=== PATIENT | male | born 1955 | race Caucasian/White ===

== ENCOUNTER 2020-01-12 11:55 | Inpatient (IN) | payer OTHER ==
[~2020-01-12] VITALS: Ht 170.2 cm; Wt 81.5 kg
[2020-01-12] VITALS (12 sets, daily range): BP systolic 116–161; BP diastolic 70–88
[~2020-01-12 11:55] MED LIST: ASPI-424 PO; ATORVASTATIN CA80 MG PO; CLOP75TA57 PO; FISH1CAP PO; LISI-334 PO; METO25TA4 PO; ONDA4TAB10 PO; OXYC1TAB15 PO; TAMS0.4C97 PO
[2020-01-12] MEDS ORDERED: HEPARIN for ARTERIAL LINE 0 ML ONE (12:25)
[2020-01-12] MEDS ORDERED: IODIXANOL 320 MG/ML 100 ML VIAL. ONE (12:26)
[2020-01-12] MEDS ORDERED: fentaNYL PF VIAL 100 MCG/2 ML VIAL ONE (12:26)
[2020-01-12] MEDS ORDERED: LIDOCAINE 1% Multi-Dose 20 ML VIAL. ONE (12:26)
[2020-01-12] MEDS ORDERED: MIDAZOLAM HCL/PF 2 MG/2 ML VIAL. ONE (12:26)
[2020-01-12] MEDS ORDERED: MIDAZOLAM 100mg/100ml NS BAG 100 ML IV PRN ×2 (12:45→13:00)
[2020-01-12] MEDS ORDERED: POLYVINYL ALCOHOL 1.4% OPHTH SOLUTION 15ML BOTTLE. OU PRN (12:45)
[2020-01-12] MEDS ORDERED: PROPOFOL 100 ML IV PRN (12:45)
[2020-01-12] MEDS ORDERED: VECURONIUM BOLUS 10 MG VIAL. IV PRN (12:45)
[2020-01-12] MEDS ORDERED: AMIODARONE 450 MG in IV DEXTROSE 5% 250 ML IV PRN (12:45)
[2020-01-12 12:53] LABS: BASO % 1 % (0-3); EOS # 0.2 x10^3/uL (0.0-0.7); EOS % 3 % (0-3); HEMATOCRIT 46.9 % (39.0-53.0); HEMOGLOBIN 15.1 g/dL (13.0-17.5); LYMPH # 4.7 x10^3/uL (1.0-4.8); LYMPH % 66 % (24-48); MEAN CORPUSCULAR HEMOGLOBIN 31 pg (25-35); MEAN CORPUSCULAR HGB CONC 32 g/dL (31-37); MEAN CORPUSCULAR VOLUME 97 fL (79-100); MONO # 0.3 x10^3/uL (0.0-1.1); MONO % 4 % (0-9); NEUT # 1.9 x10^3/uL (1.8-7.7); NEUT % 26 % (31-73); PLATELET COUNT 278 x10^3/uL (140-400); RED BLOOD COUNT 4.85 x10^6/uL (4.30-5.70); RED CELL DISTRIBUTION WIDTH 13.5 % (11.5-14.5); WHITE BLOOD COUNT 7.1 x10^3/uL (4.0-11.0)
--- NOTE | 2020-01-12 12:54 | RAD ---
EXAM: CHEST AP ONLY INDICATION: Cardiac arrest. Intubated.. TECHNIQUE: Single view COMPARISON: Abdomen CT without IV contrast of 08/21/2013. FINDINGS: The endotracheal tube terminates 1.0 cm above the paulino. An enteric tube passes below the diaphragms. The heart size is normal. The great vessels appear unremarkable. There is no hilar or mediastinal mass. The lungs are clear. There is no pleural effusion or pneumothorax. Bones show multilevel degenerative spondylosis. IMPRESSION: 1. Satisfactory endotracheal and patient with the ET tube terminating borderline low-lying, 1 cm above the paulino. Correlate for ET tube function and consider retracting if clinically appropriate. No acute complications otherwise noted. 2. Enteric tube passes below the diaphragms, tip projecting over the gastric fundus. Electronically signed by: Diana Deshpande MD (01/12/2020 12:51 PM) [id number]
[2020-01-12] MEDS ORDERED: fentaNYL PF VIAL 100 MCG/2 ML VIAL IV PRN (13:00)
[2020-01-12] MEDS ORDERED: busPIRone 10 MG TABLET. NG SCH (13:00)
[2020-01-12] MEDS ORDERED: MIDAZOLAM HCL/PF 2 MG/2 ML VIAL. IV ONE (13:00)
[2020-01-12] MEDS ORDERED: MAGNESIUM SULFATE 1GM 100 ML IV ONE (13:00)
[2020-01-12] MEDS ORDERED: fentaNYL PF VIAL 100 MCG/2 ML VIAL IV ONE (13:00)
[2020-01-12 13:04] LABS: PROTHROMBIN TIME PATIENT 14.6 SEC (11.7-14.0)
[2020-01-12 13:07] LABS: BASE EXCESS ABG -18 mmol/L (-3-3); HCO3 ABG 13 mmol/L (21-28); PCO2 ABG 50 mmHg (35-46); PO2 ABG 258 mmHg (65-108); SAT O2 ABG 99 % (92-99)
[2020-01-12] MEDS: AMIODARONE 450 MG in IV DEXTROSE 5% 250 ML IV PRN (13:07)
[2020-01-12 13:08] LABS: FIO2 ABG 100 VENT
[2020-01-12 13:13] LABS: MAGNESIUM 2.5 mg/dL (1.8-2.4)
[2020-01-12] MEDS: fentaNYL PF VIAL 100 MCG/2 ML VIAL IV PRN ×2 (13:27→14:43)
--- NOTE | 2020-01-12 13:27 | PDOC2 ---
CONSULT Date of Consult Date of Consult DATE: 01/12/20 TIME: 13:16 Reason for Consult Reason for Consult: Cardiac arrest Referring Physician Referring Physician: Dr. Aden Identification/Chief Complaint Chief Complaint Patient found down at his home Source Source: Caregiver, Chart review History of Present Illness Reason for Visit: The patient is a 64-year-old male who was found down at his home by his family. He may have been down up to 5 to 10 minutes until he was found. Paramedics were called. He was found to be in V. tach and CPR protocols were initiated. Approximate time of CPR was 15 minutes and at that time the patient resumed a more stable rhythm and was transported to the emergency room. In the emergency room the patient again had episodes of ventricular tachycardia and ventricular fibrillation. ACLS protocols were followed. Approximate coding time was 25 to 30 minutes. The patient then resumed a sinus rhythm. He was then treated with IV amiodarone. Blood pressure was severely decreased at approximately 62 mmHg systolic and he is being started on pressors. He was intubated in the emergency room and chest x-ray is pending. He has a history of stent placement approximately 14 years ago. He also has a history of hypertension and diabetes mellitus. Past Medical History Cardiovascular: CAD, HTN Endocrine: Diabetes Past Surgical History Past Surgical History: Other (Coronary stenting approximately 14 years ago. Orthopedic surgery for fractures.) Family History Family History: Hypertension Social History No Current Medications Current Medications Current Medications Heparin Sodium/ Sodium Chloride 0 ml @ As Directed STK-MED ONCE .ROUTE ; Start 01/12/20 at 12:25; Stop 01/12/20 at 12:25; Status DC Fentanyl Citrate (Fentanyl 2ml Vial) 100 mcg STK-MED ONCE .ROUTE ; Start 01/12/20 at 12:26; Stop 01/12/20 at 12:26; Status DC Midazolam HCl (Versed) 2 mg STK-MED ONCE .ROUTE ; Start 01/12/20 at 12:26; Stop 01/12/20 at 12:26; Status DC Iodixanol (Visipaque 320) 100 ml STK-MED ONCE .ROUTE ; Start 01/12/20 at 12:26; Stop 01/12/20 at 12:26; Status DC Lidocaine HCl (Lidocaine 1% 20ml Vial) 20 ml STK-MED ONCE .ROUTE ; Start 01/12/20 at 12:26; Stop 01/12/20 at 12:27; Status DC Amiodarone HCl 450 mg/Dextrose 259 ml @ 0 mls/hr CONT PRN IV SEE I/O RECORD; Start 01/12/20 at 12:45; Status UNV Amiodarone HCl 450 mg/Dextrose 259 ml @ 33 mls/hr CONT PRN IV SEE I/O RECORD Last administered on 01/12/20at 13:07; Start 01/12/20 at 12:45 Fentanyl Citrate (Fentanyl 2ml Vial) 100 mcg 1X ONCE IV Last administered on 01/12/20at 12:54; Start 01/12/20 at 13:00; Stop 01/12/20 at 13:01; Status DC Midazolam HCl (Versed) 2 mg 1X ONCE IV Last administered on 01/12/20at 12:54; Start 01/12/20 at 13:00; Stop 01/12/20 at 13:01; Status DC Magnesium Sulfate/ Dextrose 100 ml @ 100 mls/hr 1X ONCE IV ; Start 01/12/20 at 13:00; Stop 01/12/20 at 13:59 Buspirone HCl (Buspar) 30 mg Q8H NG ; Start 01/12/20 at 13:00; Stop 01/14/20 at 05:01 Acetaminophen (Tylenol) 650 mg Q4H NG ; Start 01/12/20 at 13:00 Acetaminophen (Tylenol Supp) 650 mg PRN Q4HRS PRN CO IF NO NG DOSE GIVEN; Start 01/12/20 at 12:45 Artificial Tears (Artificial Tears) 1 drop Q6HRS OU ; Start 01/12/20 at 18:00 Artificial Tears (Artificial Tears) 1 drop PRN Q15MIN PRN OU DRY EYE; Start 01/12/20 at 12:45 Heparin Sodium (Porcine) (Heparin Sodium) 5,000 unit BID SQ ; Start 01/12/20 at 21:00 Pantoprazole Sodium (PROTONIX VIAL for IV PUSH) 40 mg DAILY IVP ; Start 01/13/20 at 09:00 Fentanyl Citrate 30 ml @ 0 mls/hr CONT PRN IV PER PROTOCOL.; Start 01/12/20 at 12:45 Propofol 100 ml @ 0 mls/hr CONT PRN IV PER PROTOCOL.; Start 01/12/20 at 12:45 Midazolam HCl 100 ml @ 0 mls/hr CONT PRN IV PER PROTOCOL.; Start 01/12/20 at 12:45 Vecuronium [employer] (Norcuron Bolus) 10 mg PRN Q1HR PRN IV SHIVERING; Start 01/12/20 at 12:45 Fentanyl Citrate 30 ml @ 0 mls/hr CONT PRN IV SEE PROTOCOL; Start 01/12/20 at 13:00; Status UNV Fentanyl Citrate (Fentanyl 2ml Vial) 25 mcg PRN Q1HR PRN IV SEE COMMENTS; Start 01/12/20 at 13:00 Fentanyl Citrate (Fentanyl 2ml Vial) 50 mcg PRN Q1HR PRN IV SEE COMMENTS; Start 01/12/20 at 13:00 Chlorhexidine Gluconate (Peridex) 15 ml BID MM ; Start 01/12/20 at 21:00 Midazolam HCl 100 ml @ 0 mls/hr CONT PRN IV SEE PROTOCOL; Start 01/12/20 at 13:00; Status UNV Active Scripts Active Flomax (Tamsulosin Hcl) 0.4 Mg Cap.er.24h 0.4 Mg PO DAILY Zofran Odt (Ondansetron) 4 Mg Tab.rapdis 4 Mg PO Q6HRS PRN Percocet 5-325 Mg Tablet (Oxycodone Hcl/Acetaminophen) 1 Each Tablet 1 Each PO Q4HRS PRN Reported Adult Low Dose Aspirin Ec (Aspirin) 81 Mg Tablet.dr 81 Mg PO DAILY Metoprolol Tartrate 25 Mg Tablet 25 Mg PO BID Lisinopril 20 Mg Tablet 20 Mg PO DAILY Plavix (Clopidogrel Bisulfate) 75 Mg Tablet 75 Mg PO DAILY Atorvastatin Calcium 80 Mg Tablet 80 Mg PO DAILY Fish Oil 1,200 Mg Fish Oil (Fish Oil/Dha/Epa) 1 Each Capsule 2,400 Mg PO DAILY Allergies Allergies: Coded Allergies: Penicillins (Verified Allergy, Intermediate, Hives, 01/12/20) ROS Review of System Not obtainable. Physical Exam General: Other (Intubated and on a ventilator.) HEENT: Other (Pupils are fixed but not dilated) Lungs: Other (Mildly decreased breath sounds) Heart: Regular rate Abdomen: Normal bowel sounds Vitals VITALS Vital Signs Date Time Temp Pulse Resp B/P (MAP) Pulse Ox O2 Delivery O2 Flow Rate FiO2 01/12/20 12:55 100 Ventilator Labs Labs Laboratory Tests Test 01/12/20 12:00 01/12/20 12:45 White Blood Count 7.1 x10^3/uL (4.0-11.0) Red Blood Count 4.85 x10^6/uL (4.30-5.70) Hemoglobin 15.1 g/dL (13.0-17.5) Hematocrit 46.9 % (39.0-53.0) Mean Corpuscular Volume 97 fL (79-100) Mean Corpuscular Hemoglobin 31 pg (25-35) Mean Corpuscular Hemoglobin Concent 32 g/dL (31-37) Red Cell Distribution Width 13.5 % (11.5-14.5) Platelet Count 278 x10^3/uL (140-400) Neutrophils (%) (Auto) 26 % (31-73) Lymphocytes (%) (Auto) 66 % (24-48) Monocytes (%) (Auto) 4 % (0-9) Eosinophils (%) (Auto) 3 % (0-3) Basophils (%) (Auto) 1 % (0-3) Neutrophils # (Auto) 1.9 x10^3/uL (1.8-7.7) Lymphocytes # (Auto) 4.7 x10^3/uL (1.0-4.8) Monocytes # (Auto) 0.3 x10^3/uL (0.0-1.1) Eosinophils # (Auto) 0.2 x10^3/uL (0.0-0.7) Basophils # (Auto) 0.0 x10^3/uL (0.0-0.2) Prothrombin Time 14.6 SEC (11.7-14.0) Prothromb Time International Ratio 1.2 (0.8-1.1) Activated Partial Thromboplast Time 33 SEC (24-38) O2 Saturation 99 % (92-99) Arterial Blood pH 7.03 (7.35-7.45) Arterial Blood pCO2 at Patient Temp 50 mmHg (35-46) Arterial Blood pO2 at Patient Temp 258 mmHg (65-108) Arterial Blood HCO3 13 mmol/L (21-28) Arterial Blood Base Excess -18 mmol/L (-3-3) FiO2 100 vent Laboratory Tests Test 01/12/20 12:00 01/12/20 12:45 White Blood Count 7.1 x10^3/uL (4.0-11.0) Red Blood Count 4.85 x10^6/uL (4.30-5.70) Hemoglobin 15.1 g/dL (13.0-17.5) Hematocrit 46.9 % (39.0-53.0) Mean Corpuscular Volume 97 fL (79-100) Mean Corpuscular Hemoglobin 31 pg (25-35) Mean Corpuscular Hemoglobin Concent 32 g/dL (31-37) Red Cell Distribution Width 13.5 % (11.5-14.5) Platelet Count 278 x10^3/uL (140-400) Neutrophils (%) (Auto) 26 % (31-73) Lymphocytes (%) (Auto) 66 % (24-48) Monocytes (%) (Auto) 4 % (0-9) Eosinophils (%) (Auto) 3 % (0-3) Basophils (%) (Auto) 1 % (0-3) Neutrophils # (Auto) 1.9 x10^3/uL (1.8-7.7) Lymphocytes # (Auto) 4.7 x10^3/uL (1.0-4.8) Monocytes # (Auto) 0.3 x10^3/uL (0.0-1.1) Eosinophils # (Auto) 0.2 x10^3/uL (0.0-0.7) Basophils # (Auto) 0.0 x10^3/uL (0.0-0.2) Prothrombin Time 14.6 SEC (11.7-14.0) Prothromb Time International Ratio 1.2 (0.8-1.1) Activated Partial Thromboplast Time 33 SEC (24-38) O2 Saturation 99 % (92-99) Arterial Blood pH 7.03 (7.35-7.45) Arterial Blood pCO2 at Patient Temp 50 mmHg (35-46) Arterial Blood pO2 at Patient Temp 258 mmHg (65-108) Arterial Blood HCO3 13 mmol/L (21-28) Arterial Blood Base Excess -18 mmol/L (-3-3) FiO2 100 vent Images Images Chest x-ray and CT head scan pending Assessment/Plan Assessment/Plan 1. On out of hospital cardiac arrest. Prolonged CPR times as outlined above. Patient has now improved on IV amiodarone. Blood pressure still severely decreased and will start pressors for the patient. History of coronary stenting approximately 14 years ago. However the patient by family report has been feeling well over the past several months. At this time will continue on IV amiodarone, dopamine and other pressors as needed, ventilator support and start hypothermia protocol. CT head scan is pending and will consider heparin post CT head scan secondary the patient's reported fall. The patient is a poor candidate at this time for interventional treatment secondary to his unstable rhythm and severe hypotension. I reviewed the patient's presentation and treatment as well as prognosis with the patient's and family. 2. History of distant stent placement 14 years ago. Patient has been followed by Dr. Pierre at . He reportedly has been feeling well. 3. Diabetes mellitus. As per the primary service. 4. Respiratory failure. Patient was intubated and placed on a ventilator in the emergency room. Pulmonary consult is pending. Thank you for allowing us to participate in the care of your patient. CHRIS MURRELL MD January 12, 2020 13:27
[2020-01-12 13:33] LABS: ALBUMIN 3.3 g/dL (3.4-5.0); ALBUMIN/GLOBULIN RATIO 1.1 (1.0-1.7); CALCIUM 8.9 mg/dL (8.5-10.1); CREATININE 1.4 mg/dL (0.7-1.3); GFR 51.2; TOTAL BILIRUBIN 0.5 mg/dL (0.2-1.0); TOTAL PROTEIN 6.3 g/dL (6.4-8.2)
[2020-01-12 13:49] LABS: POTASSIUM 2.7 mmol/L (3.5-5.1)
[2020-01-12] MEDS ORDERED: POTASSIUM CHLORIDE 20MEQ 100 ML IV ONE (14:00)
--- NOTE | 2020-01-12 14:27 | RAD ---
CT HEAD WO CONTRAST Clinical indications: Cardiac arrest. Status change. COMPARISON: None available. Technique: Noncontrast axial cross sectional scanning of the head was performed. PQRS compliance Statement One or more of the following individualized dose reduction techniques were utilized for this study: 1. Automated exposure control 2. Adjustment of the mA and/or kV according to patient size 3. Use of iterative reconstruction technique Findings: No acute intracranial hemorrhage or midline shift or mass-effect or hydrocephalus or extra-axial fluid collection is seen. There is ill-defined hypodensity involving the upper convexity aspect of the posterior right parietal lobe. This could be ischemic in nature. No skull fracture or pneumocephalus is seen. No opacification of the mastoid sinuses or the middle ear cavities or the paranasal sinuses is seen. The maxillary sinuses are not completely seen in this study. Calcifications of the retina are seen bilaterally. IMPRESSION: No acute intracranial hemorrhage is seen. Ill-defined hypodensity involving the upper convexity aspect of the posterior right parietal lobe which may be ischemic in nature. This could be due to acute or subacute infarct. FOR INTERNAL CODING PURPOSES Critical result: Findings discussed with Aric, the ER nurse at 01/12/2020 2:19 PM. He read back to me the report and will give it to the ER physician who was not readily available at the time. RESULT CODE: (C) Electronically signed by: Ricco Fierro MD (01/12/2020 2:24 PM) [id number]
[2020-01-12 15:09] LABS: BASE EXCESS ABG -6 mmol/L (-3-3); HCO3 ABG 19 mmol/L (21-28); PCO2 ABG 37 mmHg (35-46); PO2 ABG 105 mmHg (65-108); SAT O2 ABG 97 % (92-99)
[2020-01-12 15:11] LABS: FIO2 ABG 60%
[2020-01-12] MEDS: ACETAMINOPHEN 650 MG/20.3 ML SOLUTION. NG SCH ×3 (15:43→19:54)
--- NOTE | 2020-01-12 16:00 | HP ---
ADMIT DATE: 01/12/2020 CHIEF COMPLAINT: Found down, cardiac arrest. HISTORY OF PRESENT ILLNESS: The patient is a pleasant 64-year-old male who has known coronary artery disease. He has 2 previous stents. His found him down outside. She thinks he was down for about 5-10 minutes and the ambulance was called, they arrived and intubated him and did CPR for about 15 minutes. He was brought to the Emergency Room, he is now on amiodarone drip and dopamine. His troponin is surprisingly normal at 0.017. I discussed the case with ER physician. We are going to admit the patient to the ICU with consultation to Pulmonary and Cardiology. PAST MEDICAL HISTORY: CAD with previous stents x 2, BPH, anticoagulation with Plavix, hyperlipidemia, diabetes, hypertension, chronic pain, arthritis. ALLERGIES: PENICILLIN. FAMILY HISTORY: Coronary artery disease. 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 He is . He does not drink, smoke or take drugs. MEDICATIONS: Reviewed. He is on Flomax, Plavix, aspirin, metoprolol, atorvastatin, lisinopril, oxycodone, ondansetron and fish oil. REVIEW OF SYSTEMS: Unable to obtain. The patient is intubated. PHYSICAL EXAMINATION: VITALS: Within normal limits and are stable. GENERAL: No apparent distress. Alert and oriented. HEENT: He has an ET tube in place. His pupils are actually pinpoint and he has not received any atropine so that is a good sign. MUSCULOSKELETAL: Well developed, well nourished, good range of motion ENDOCRINE: No thyromegaly was palpated LYMPHATICS: No cervical chain or axillary nodes were noted HEMATOPOIETIC: No bruising NECK: He has slight JVD. LUNGS: Clear to auscultation in all lung smith without rhonchi or wheezing. HEART: RRR, S1, S2 present. Peripheral pulses intact, no obvious murmurs were noted. ABDOMEN: Soft, nontender. Positive bowel sounds no organomegaly, normal bowel sounds. EXTREMITIES: Without any cyanosis, clubbing, or edema. Pedal pulses intact, Homans sign is negative. NEUROLOGIC: He is sedated, but he has some oral twitching. PSYCHIATRIC: Unobtainable. SKIN: No ulcerations or rashes, good skin turgor, no jaundice. VASCULAR: Good capillary refill, neurovascular bundle appears to be intact. LABORATORY DATA: Troponin is 0. Potassium is 2.7. Hematology is normal. INR is 1.2. CT of the head, no acute changes, although he has some chronic ischemic changes, perhaps an old infarct. Chest x-ray shows satisfactory placement of the ET tube, no acute complications were noted. ASSESSMENT AND PLAN: Cardiac arrest with resuscitation. The patient has been admitted to the ICU. We have him on dopamine and amiodarone drips, we will hope to wean the dopamine off. Serial enzymes, serial EKGs, echocardiogram, consult Cardiology, consult Pulmonary. We will try to resume his home meds via OG tube if necessary. Replace his potassium. DVT prophylaxis. Full code. Prognosis is extremely guarded at best. This is a critically ill patient. I did discuss the case with the nurses and the ER physician and the family. TOTAL TIME: 31 minutes. LICO HAWLEY DO DR: ALICIA/filemon JOB#: [id number] / [id number]
--- NOTE | 2020-01-12 16:17 | RAD ---
AP portable chest 01/12/2020. Reason for exam: Central line placement. Comparison is made with a study done earlier in the day. An ETT and NGT remain in place. A right subclavian central line is now seen. Its tip can be followed to mediastinum and probably lies near the cavoatrial junction. There is no apparent pneumothorax. No new infiltrate or effusion is seen. Heart size is normal. IMPRESSION: Placement of subclavian line without apparent complication. Electronically signed by: Josr Bolivar Jr., MD (01/12/2020 4:14 PM) [id number]
--- NOTE | 2020-01-12 16:46 | CONS ---
DATE OF CONSULTATION: PULMONARY CONSULTATION ATTENDING PHYSICIAN: Dr. Chan. REASON FOR CONSULTATION: Cardiac arrest. HISTORY OF PRESENT ILLNESS: The patient is a 64-year-old male who has past medical history of coronary artery disease and stenting about 14 years ago. He sees Dr. Pierre. The patient was found down at his home by his family. EMS was called. They arrived within 4-5 minutes. He was found to be in V-tach. CPR was initiated. He had ACLS protocol followed for about 20 minutes. The patient had a stable rhythm by EMS. He was transported into the Emergency Room and again had about 20-25 minutes of CPR intermittently with shock and drugs. The patient had V-tach and V-fib. ACLS protocol was followed. The patient had return of spontaneous circulation. He was treated with IV amiodarone. He was requiring low-dose Levophed. He was seen by Cardiology, who did not think that he needed to go to [facility] [employer]. Currently, he is intubated and sedated. His ABGs showed a pH of 7.03, pCO2 of 50 and a pO2 of 258 with bicarbonate of 13. He received 2 amps of bicarbonate. The rate has been increase, is currently on AC at 26, tidal volume 500 and his oxygenation down to 60% and 8 of PEEP. I have discussed with the patient's at the bedside. No prior history of DVT. He smoked for about 30 years before quitting. PAST MEDICAL HISTORY: History of hypertension, CAD and likely COPD, and diabetes. PAST SURGICAL HISTORY: Previous stent placement. FAMILY HISTORY: Hypertension. SOCIAL HISTORY: Smoked for about 30 years before quitting. FAMILY HISTORY: Noncontributory to lungs. MEDICATIONS: Reviewed as listed in the MRAD. REVIEW OF SYSTEMS: Unable to obtain from the patient. PHYSICAL EXAMINATION: VITAL SIGNS: Reviewed. Pulse ox 100%. HEENT: Pupils sluggish to react. NECK: Supple. LUNGS: With few rhonchi anteriorly. CARDIOVASCULAR: Regular ____. ABDOMEN: Soft, obese. EXTREMITIES: With bilateral trace pitting edema. LABORATORY DATA: Reviewed. ABGs as discussed in my history of present illness. Potassium 2.7. BUN 18, creatinine 1.4. AST and ALT elevated. White cell count 7.1, hemoglobin 15.1, platelets 278,000. IMPRESSION: 1. Acute hypoxic and hypercapnic respiratory failure secondary to cardiac arrest. 2. Cardiac arrest with V-fib and V-tach. Status post CPR and ACLS protocol for approximately 50 minutes. 3. History of underlying coronary artery disease and suspected non-ST myocardial infarction. 4. Abnormal chest x-ray with faint basal atelectasis or infiltrate. The ET tube at 1 cm above the paulino. 5. Cannot exclude the possibility of anoxic encephalopathy due to prolonged CPR. 6. Coffee-ground OG aspirate. Could be related to OG trauma. 7. Likely underlying chronic obstructive pulmonary disease. 8. Abnormal ct head with suspected small ischemic infarct 9. Shock Liver RECOMMENDATIONS: 1. Continue with present assist control mode and make changes based on ABGs. 2. Follow cardiology recommendations. Need for any cardiac intervention per cardiology. 3. The patient has abnormal CT head with ischemic infarct. Not a candidate for hypothermic protocol. 4. Monitor renal output. 5. The patient has shock liver. Need to monitor LFTs. 6. Once the patient is stabilized then we will wean off sedation and assess for anoxic brain injury. 7. Anticoagulation per Cardiology. 8. Continue amiodarone per Cardiology. 9. Discussed with family including and discussed with ER physician. 10. Neurology consult Critical care time 40 minutes. ALEXI LUNDBERG MD DR: KRISSY/filemon JOB#: [id number] / [id number]
--- NOTE | 2020-01-12 16:53 | PHYS DOC ---
Past Medical History Past Medical History: Diabetes-Type II, Hypertension, AR, Other Additional Past Medical Histor: GASTRIC ULCER Past Surgical History: Appendectomy, Other Additional Past Surgical Histo: cardiac cath, CARDIAC STENT Smoking Status: Former Smoker Alcohol Use: Occasionally Drug Use: None General Adult EDM: Chief Complaint: CPR/FULL ARREST HPI: HPI: Patient is a 64-year-old male with known coronary disease who is out enjoying the weather sitting up on a proximally a 3 foot ledge when he clutched his chest and fell over. This happened suddenly and he was immediately unresponsive. No CPR was done but EMS was called and arrived approximately 5 minutes later. EMS reports that they gave multiple rounds of epinephrine and shocked him multiple times. They state their rhythm was asystole and then ventricular fibrillation after 20 minutes of ACLS in the field they did have a return of spontaneous circulation and brought him here emergency traffic. Obviously, patient is unable to provide any history. However, the family states that he has been recently given a clean bill of health by his groundskeeper and had no complaints recently. [] Review of Systems: Review of Systems: Review of systems is unobtainable secondary to critical medical illness Heart Score: Risk Factors: Risk Factors: DM, Current or recent (<one month) smoker, HTN, HLP, family history of CAD, obesity. Risk Scores: Score 0 - 3: 2.5% MACE over next 6 weeks - Discharge Home Score 4 - 6: 20.3% MACE over next 6 weeks - Admit for Clinical Observation Score 7 - 10: 72.7% MACE over next 6 weeks - Early Invasive Strategies Current Medications: Current Medications Medications (Trade) Dose Ordered Sig/[facility] Start Time Stop Time Status Last Admin Dose Admin Acetaminophen (Tylenol Supp) 650 mg PRN Q4HRS PRN 01/12/20 12:45 Acetaminophen (Tylenol) 650 mg Q4H 01/12/20 13:00 Amiodarone HCl 450 mg/Dextrose 259 ml @ 33 mls/hr CONT PRN 01/12/20 12:45 01/12/20 13:07 33 MLS/HR Artificial Tears (Artificial Tears) 1 drop PRN Q15MIN PRN 01/12/20 12:45 Buspirone HCl (Buspar) 30 mg Q8H 01/12/20 13:00 01/14/20 05:01 Fentanyl Citrate (Fentanyl 2ml Vial) 50 mcg PRN Q1HR PRN 01/12/20 13:00 01/12/20 14:43 50 MCG Heparin Sodium/ Sodium Chloride 0 ml @ As Directed STK-MED ONCE 01/12/20 12:25 01/12/20 12:25 DC Iodixanol (Visipaque 320) 100 ml STK-MED ONCE 01/12/20 12:26 01/12/20 12:26 DC Lidocaine HCl (Lidocaine 1% 20ml Vial) 20 ml STK-MED ONCE 01/12/20 12:26 01/12/20 12:27 DC Magnesium Sulfate/ Dextrose 100 ml @ 100 mls/hr 1X ONCE 01/12/20 13:00 01/12/20 13:59 DC Midazolam HCl 100 ml @ 0 mls/hr CONT PRN 01/12/20 13:00 UNV Midazolam HCl (Versed) 2 mg 1X ONCE 01/12/20 13:00 01/12/20 13:01 DC 01/12/20 12:54 2 MG Potassium Chloride/Water 100 ml @ 50 mls/hr 1X ONCE 01/12/20 14:00 01/12/20 15:59 DC 01/12/20 14:00 50 MLS/HR Propofol 100 ml @ 0 mls/hr CONT PRN 01/12/20 12:45 Vecuronium Woodson (Norcuron Bolus) 10 mg PRN Q1HR PRN 01/12/20 12:45 Allergies: Allergies: Allergies Coded Allergies Type Severity Reaction Last Updated Verified Penicillins Allergy Intermediate Hives 01/12/20 Yes Physical Exam: PE: Constitutional: Well developed, well nourished, patient is acutely ill [] HENT: Normocephalic, atraumatic, bilateral external ears normal, oropharynx moist, no oral exudates, nose normal. He has a Jean Claude airway in place [] Eyes: Pupils fixed and dilated [] Neck: Normal range of motion, no tenderness, supple, no stridor. [] Cardiovascular:Heart rate regular rhythm, no murmur faint peripheral pulses palpated [] Lungs & Thorax: Bilateral breath sounds clear to auscultation [] Abdomen: Bowel sounds normal, soft, no tenderness, no masses, no pulsatile masses. [] Skin: Warm, dry, no erythema, no rash. [] Back: No tenderness, no CVA tenderness. [] Extremities: No tenderness, no cyanosis, no clubbing, ROM intact, no edema. [] Neurologic: Patient is obtunded. [] Psychologic: Unable to assess [] Current Patient Data: Labs: Laboratory Tests Test 01/12/20 12:00 01/12/20 12:45 01/12/20 15:00 White Blood Count 7.1 x10^3/uL (4.0-11.0) Red Blood Count 4.85 x10^6/uL (4.30-5.70) Hemoglobin 15.1 g/dL (13.0-17.5) Hematocrit 46.9 % (39.0-53.0) Mean Corpuscular Volume 97 fL (79-100) Mean Corpuscular Hemoglobin 31 pg (25-35) Mean Corpuscular Hemoglobin Concent 32 g/dL (31-37) Red Cell Distribution Width 13.5 % (11.5-14.5) Platelet Count 278 x10^3/uL (140-400) Neutrophils (%) (Auto) 26 % (31-73) L Lymphocytes (%) (Auto) 66 % (24-48) H Monocytes (%) (Auto) 4 % (0-9) Eosinophils (%) (Auto) 3 % (0-3) Basophils (%) (Auto) 1 % (0-3) Neutrophils # (Auto) 1.9 x10^3/uL (1.8-7.7) Lymphocytes # (Auto) 4.7 x10^3/uL (1.0-4.8) Monocytes # (Auto) 0.3 x10^3/uL (0.0-1.1) Eosinophils # (Auto) 0.2 x10^3/uL (0.0-0.7) Basophils # (Auto) 0.0 x10^3/uL (0.0-0.2) Prothrombin Time 14.6 SEC (11.7-14.0) H Prothrombin Time INR 1.2 (0.8-1.1) H Activated Partial Thromboplast Time 33 SEC (24-38) Sodium Level 142 mmol/L (136-145) Potassium Level 2.7 mmol/L (3.5-5.1) *L Chloride Level 102 mmol/L (98-107) Carbon Dioxide Level 19 mmol/L (21-32) L Anion Gap 21 (6-14) H Blood Urea Nitrogen 18 mg/dL (8-26) Creatinine 1.4 mg/dL (0.7-1.3) H Estimated GFR (Cockcroft-Gault) 51.2 BUN/Creatinine Ratio 13 (6-20) Glucose Level 290 mg/dL (70-99) H Calcium Level 8.9 mg/dL (8.5-10.1) Phosphorus Level 7.0 mg/dL (2.6-4.7) H Magnesium Level 2.5 mg/dL (1.8-2.4) H Total Bilirubin 0.5 mg/dL (0.2-1.0) Aspartate Amino Transferase (AST) 125 U/L (15-37) H Alanine Aminotransferase (ALT) 187 U/L (16-63) H Alkaline Phosphatase 70 U/L (46-116) Creatine Kinase 152 U/L (39-308) Troponin I Quantitative < 0.017 ng/mL (0.000-0.055) WX-Xzq-B-Type Natriuretic Peptide 159 pg/mL (0-124) H Total Protein 6.3 g/dL (6.4-8.2) L Albumin 3.3 g/dL (3.4-5.0) L Albumin/Globulin Ratio 1.1 (1.0-1.7) Triglycerides Level 83 mg/dL (0-150) Ethyl Alcohol Level < 10 mg/dL (0-10) O2 Saturation 99 % (92-99) 97 % (92-99) Arterial Blood pH 7.03 (7.35-7.45) *L 7.34 (7.35-7.45) L Arterial Blood pCO2 at Patient Temp 50 mmHg (35-46) H 37 mmHg (35-46) Arterial Blood pO2 at Patient Temp 258 mmHg (65-108) H 105 mmHg (65-108) Arterial Blood HCO3 13 mmol/L (21-28) L 19 mmol/L (21-28) L Arterial Blood Base Excess -18 mmol/L (-3-3) L -6 mmol/L (-3-3) L FiO2 100 vent 60% Laboratory Tests 01/12/20 12:00 Laboratory Tests 01/12/20 12:00 Vital Signs: Vital Signs Date Time Temp Pulse Resp B/P (MAP) Pulse Ox O2 Delivery O2 Flow Rate FiO2 01/12/20 16:15 76 26 125/81 (96) 100 Ventilator 01/12/20 11:55 97.2 97.2 EKG: EKG: [EKG sinus bradycardia no obvious ischemic ST-T changes] Radiology/Procedures: Radiology/Procedures: []REASON: cardiac arrest PROCEDURE: CT HEAD WO CONTRAST CT HEAD WO CONTRAST Clinical indications: Cardiac arrest. Status change. COMPARISON: None available. Technique: Noncontrast axial cross sectional scanning of the head was performed. PQRS compliance Statement One or more of the following individualized dose reduction techniques were utilized for this study: 1. Automated exposure control 2. Adjustment of the mA and/or kV according to patient size 3. Use of iterative reconstruction technique Findings: No acute intracranial hemorrhage or midline shift or mass-effect or hydrocephalus or extra-axial fluid collection is seen. There is ill-defined hypodensity involving the upper convexity aspect of the posterior right parietal lobe. This could be ischemic in nature. No skull fracture or pneumocephalus is seen. No opacification of the mastoid sinuses or the middle ear cavities or the paranasal sinuses is seen. The maxillary sinuses are not completely seen in this study. Calcifications of the retina are seen bilaterally. IMPRESSION: No acute intracranial hemorrhage is seen. Ill-defined hypodensity involving the upper convexity aspect of the posterior right parietal lobe which may be ischemic in nature. This could be due to acute or subacute infarct. Impression: PROCEDURE: PORTABLE CHEST 1V AP portable chest 01/12/2020. Reason for exam: Central line placement. Comparison is made with a study done earlier in the day. An ETT and NGT remain in place. A right subclavian central line is now seen. Its tip can be followed to mediastinum and probably lies near the cavoatrial junction. There is no apparent pneumothorax. No new infiltrate or effusion is seen. Heart size is normal. IMPRESSION: Placement of subclavian line without apparent complication. PROCEDURE: CHEST AP ONLY EXAM: CHEST AP ONLY INDICATION: Cardiac arrest. Intubated.. TECHNIQUE: Single view COMPARISON: Abdomen CT without IV contrast of 08/21/2013. FINDINGS: The endotracheal tube terminates 1.0 cm above the paulino. An enteric tube passes below the diaphragms. The heart size is normal. The great vessels appear unremarkable. There is no hilar or mediastinal mass. The lungs are clear. There is no pleural effusion or pneumothorax. Bones show multilevel degenerative spondylosis. IMPRESSION: 1. Satisfactory endotracheal and patient with the ET tube terminating borderline low-lying, 1 cm above the paulino. Correlate for ET tube function and consider retracting if clinically appropriate. No acute complications otherwise noted. 2. Enteric tube passes below the diaphragms, tip projecting over the gastric fundus. Course & Med Decision Making: Course & Med Decision Making Pertinent Labs and Imaging studies reviewed. (See chart for details) [Please see the nurses CODE BLUE sheet for specifics and exact timing. ED course: Shortly after arrival the patient lost a pulse and ACLS protocol was again started with chest compressions and a couple of rounds of epinephrine. The patient then went into what appeared to be a fine ventricular fibrillation he was shocked and a total of 300 mg of amiodarone were given. He did have a spontaneous return of circulation after the shock and amiodarone this lasted for a brief time and he lost his pulse again. He was given more epinephrine and shocked again at 360 J with return of spontaneous circulation. This time we began a amiodarone drip and dopamine. Cardiology was consulted and Dr. Diaz was in the room right away. I did have a conversation with the family letting them know that the patient was critically ill.] CRITICAL CARE: Time spent was 35 minutes. This includes medical management, evaluation, reevaluation, discussion with consultants and family. Critical Care does NOT include time spent on separately billed procedures. Dragon Disclaimer: Dragon Disclaimer: This electronic medical record was generated, in whole or in part, using a voice recognition dictation system. Departure Departure Impression: Primary Impression: Cardiac arrest Disposition: 09 ADMITTED INPATIENT Admitting Physician: FLOYD Condition: CRITICAL Referrals: MERISSA NEAL MD (PCP) Central Line Placement Proc Central Line Indication: Vascular access Consent: The patient provided consent for this procedure. Procedure: The patient was positioned appropriately and the skin over the [right subclavian vein] was prepped and draped in a sterile fashion. Local anesthesia was used. Ultrasound guidance was not utilized. A large bore needle was used to identify the vein. A guide wire was then inserted into the vein through the needle. A triple lumen catheter was then inserted into the vessel over the guide wire using the Seldinger technique. All ports showed good, free flowing blood return and were flushed with saline solution. The catheter was then securely fastened to the skin with sutures and covered with a sterile dressing. A post procedure X-ray was ordered. The patient tolerated the procedure well. Complications: none. [] Intubation Procedure Intubation Procedure Intub Indication: Respiratory failure Consent: Unable to give consent due to emergent nature. Medications Used: see nursing note Procedure: The patient was placed in the appropriate position. Intubation was performed for Brendon [7.5] endotracheal tube. [ET SECURE]. Initial confirmation of placement included bilateral breath sounds, tube fogging, adequate chest rise, adequate pulse oximetry reading. A chest x-ray to verify correct placement of the tube showed appropriate tube position. The patient tolerated the procedure well. Complications: none. KHURRAM MOSER DO January 12, 2020 16:53
[2020-01-12] MEDS: POLYVINYL ALCOHOL 1.4% OPHTH SOLUTION 15ML BOTTLE. OU SCH ×2 (18:00→19:54)
[2020-01-12] MEDS: IV NORMAL SALINE 1000ML BAG 1,000 ML IV SCH (18:23)
[2020-01-12] MEDS: POTASSIUM CHLORIDE 20MEQ 100 ML IV SCH ×2 (18:24→20:26)
--- NOTE | 2020-01-12 19:05 | NUR ---
Patient arrived on unit at 1600 accompanied by ED RNs and RTs. VSS. Neurologically, patient has a cough reflex, pupils are a 1 and not responding, no response to pain, and not overbreathing the ventilator. However when stimulated, patient has full body tremor activity and patient's jaw starts quivering and eyes open, but nothing is purposeful. Routine consult paged to Dr. Estrella. VAN was notified, referral number [id number], will follow case. Patient came in with knee brace that was taken by Chikis, patient's . Chikis was able to come visit patient and answer admission questions, was given passcode and notified of visiting restrictions.
[2020-01-12] MEDS ORDERED: HEPARIN for SUB-Q USE 5,000 UNIT/ML VIAL. SQ SCH (21:00)
[2020-01-12] MEDS ORDERED: CHLORHEXIDINE 0.12% 15 ML MOUTHWASH. MM SCH (21:00)
[2020-01-12] MEDS: FAMOTIDINE 20 MG/2 ML VIAL IVP SCH (21:17)
[2020-01-13] VITALS (24 sets, daily range): BP systolic 144–186; BP diastolic 68–88
[2020-01-13] MEDS: AMIODARONE 450 MG in IV DEXTROSE 5% 250 ML IV PRN ×2 (03:07→16:01)
[2020-01-13] MEDS: fentaNYL PF VIAL 100 MCG/2 ML VIAL IV PRN ×2 (03:07→06:06)
[2020-01-13] MEDS: ACETAMINOPHEN 650 MG/20.3 ML SOLUTION. PEG PRN (04:16)
[2020-01-13] MEDS: IV NORMAL SALINE 1000ML BAG 1,000 ML IV SCH ×2 (04:17→15:28)
[2020-01-13] MEDS ORDERED: MV-M1TAB7 PO (06:28)
[2020-01-13] MEDS ORDERED: METF10007 PO (06:28)
[2020-01-13 06:30] LABS: CALCIUM 8.3 mg/dL (8.5-10.1); CREATININE 1.3 mg/dL (0.7-1.3); GFR 55.8; MAGNESIUM 1.5 mg/dL (1.8-2.4); POTASSIUM 3.7 mmol/L (3.5-5.1)
[2020-01-13 06:45] LABS: BASO % 0 % (0-3); EOS % 0 % (0-3); HEMATOCRIT 47.6 % (39.0-53.0); HEMOGLOBIN 15.9 g/dL (13.0-17.5); LYMPH # 1.4 x10^3/uL (1.0-4.8); LYMPH % 7 % (24-48); MEAN CORPUSCULAR HEMOGLOBIN 31 pg (25-35); MEAN CORPUSCULAR HGB CONC 33 g/dL (31-37); MONO # 1.4 x10^3/uL (0.0-1.1); MONO % 6 % (0-9); NEUT % 87 % (31-73); PLATELET COUNT 325 x10^3/uL (140-400); WHITE BLOOD COUNT 21.9 x10^3/uL (4.0-11.0)
--- NOTE | 2020-01-13 07:23 | PDOC ---
PULMONARY PROGRESS NOTES Subjective Remains on vent at 60% PEEP of 5. not on sedation nursing reports no overnight concerns not responsive off sedation Vitals Vital Signs Date Time Temp Pulse Resp B/P (MAP) Pulse Ox O2 Delivery O2 Flow Rate FiO2 01/13/20 06:44 26 100 Ventilator 01/13/20 06:00 101.7 105 166/72 (103) 101.7 Comments intubated AC mode Lungs: Clear Cardiovascular: S1 Abdomen: Soft Extremities: Other (trace edema) Impression Upward Gaze, doesn't follow commands/ not on sedation Labs Laboratory Tests Test 01/12/20 12:00 01/12/20 12:45 01/12/20 15:00 01/12/20 16:55 White Blood Count 7.1 x10^3/uL (4.0-11.0) Red Blood Count 4.85 x10^6/uL (4.30-5.70) Hemoglobin 15.1 g/dL (13.0-17.5) Hematocrit 46.9 % (39.0-53.0) Mean Corpuscular Volume 97 fL (79-100) Mean Corpuscular Hemoglobin 31 pg (25-35) Mean Corpuscular Hemoglobin Concent 32 g/dL (31-37) Red Cell Distribution Width 13.5 % (11.5-14.5) Platelet Count 278 x10^3/uL (140-400) Neutrophils (%) (Auto) 26 % (31-73) Lymphocytes (%) (Auto) 66 % (24-48) Monocytes (%) (Auto) 4 % (0-9) Eosinophils (%) (Auto) 3 % (0-3) Basophils (%) (Auto) 1 % (0-3) Neutrophils # (Auto) 1.9 x10^3/uL (1.8-7.7) Lymphocytes # (Auto) 4.7 x10^3/uL (1.0-4.8) Monocytes # (Auto) 0.3 x10^3/uL (0.0-1.1) Eosinophils # (Auto) 0.2 x10^3/uL (0.0-0.7) Basophils # (Auto) 0.0 x10^3/uL (0.0-0.2) Prothrombin Time 14.6 SEC (11.7-14.0) Prothromb Time International Ratio 1.2 (0.8-1.1) Activated Partial Thromboplast Time 33 SEC (24-38) Sodium Level 142 mmol/L (136-145) Potassium Level 2.7 mmol/L (3.5-5.1) 3.1 mmol/L (3.5-5.1) Chloride Level 102 mmol/L (98-107) Carbon Dioxide Level 19 mmol/L (21-32) Anion Gap 21 (6-14) Blood Urea Nitrogen 18 mg/dL (8-26) Creatinine 1.4 mg/dL (0.7-1.3) Estimated GFR (Cockcroft-Gault) 51.2 BUN/Creatinine Ratio 13 (6-20) Glucose Level 290 mg/dL (70-99) Calcium Level 8.9 mg/dL (8.5-10.1) Phosphorus Level 7.0 mg/dL (2.6-4.7) Magnesium Level 2.5 mg/dL (1.8-2.4) Total Bilirubin 0.5 mg/dL (0.2-1.0) Aspartate Amino Transf (AST/SGOT) 125 U/L (15-37) Alanine Aminotransferase (ALT/SGPT) 187 U/L (16-63) Alkaline Phosphatase 70 U/L (46-116) Creatine Kinase 152 U/L (39-308) Troponin I Quantitative < 0.017 ng/mL (0.000-0.055) WF-Lvh-N-Type Natriuretic Peptide 159 pg/mL (0-124) Total Protein 6.3 g/dL (6.4-8.2) Albumin 3.3 g/dL (3.4-5.0) Albumin/Globulin Ratio 1.1 (1.0-1.7) Triglycerides Level 83 mg/dL (0-150) Ethyl Alcohol Level < 10 mg/dL (0-10) O2 Saturation 99 % (92-99) 97 % (92-99) Arterial Blood pH 7.03 (7.35-7.45) 7.34 (7.35-7.45) Arterial Blood pCO2 at Patient Temp 50 mmHg (35-46) 37 mmHg (35-46) Arterial Blood pO2 at Patient Temp 258 mmHg (65-108) 105 mmHg (65-108) Arterial Blood HCO3 13 mmol/L (21-28) 19 mmol/L (21-28) Arterial Blood Base Excess -18 mmol/L (-3-3) -6 mmol/L (-3-3) FiO2 100 vent 60% Test 01/13/20 06:10 Sodium Level 140 mmol/L (136-145) Potassium Level 3.7 mmol/L (3.5-5.1) Chloride Level 106 mmol/L (98-107) Carbon Dioxide Level 22 mmol/L (21-32) Anion Gap 12 (6-14) Blood Urea Nitrogen 31 mg/dL (8-26) Creatinine 1.3 mg/dL (0.7-1.3) Estimated GFR (Cockcroft-Gault) 55.8 Glucose Level 170 mg/dL (70-99) Calcium Level 8.3 mg/dL (8.5-10.1) Magnesium Level 1.5 mg/dL (1.8-2.4) Laboratory Tests Test 01/12/20 12:00 01/12/20 12:45 01/12/20 15:00 01/12/20 16:55 White Blood Count 7.1 x10^3/uL (4.0-11.0) Red Blood Count 4.85 x10^6/uL (4.30-5.70) Hemoglobin 15.1 g/dL (13.0-17.5) Hematocrit 46.9 % (39.0-53.0) Mean Corpuscular Volume 97 fL (79-100) Mean Corpuscular Hemoglobin 31 pg (25-35) Mean Corpuscular Hemoglobin Concent 32 g/dL (31-37) Red Cell Distribution Width 13.5 % (11.5-14.5) Platelet Count 278 x10^3/uL (140-400) Neutrophils (%) (Auto) 26 % (31-73) Lymphocytes (%) (Auto) 66 % (24-48) Monocytes (%) (Auto) 4 % (0-9) Eosinophils (%) (Auto) 3 % (0-3) Basophils (%) (Auto) 1 % (0-3) Neutrophils # (Auto) 1.9 x10^3/uL (1.8-7.7) Lymphocytes # (Auto) 4.7 x10^3/uL (1.0-4.8) Monocytes # (Auto) 0.3 x10^3/uL (0.0-1.1) Eosinophils # (Auto) 0.2 x10^3/uL (0.0-0.7) Basophils # (Auto) 0.0 x10^3/uL (0.0-0.2) Prothrombin Time 14.6 SEC (11.7-14.0) Prothromb Time International Ratio 1.2 (0.8-1.1) Activated Partial Thromboplast Time 33 SEC (24-38) Sodium Level 142 mmol/L (136-145) Potassium Level 2.7 mmol/L (3.5-5.1) 3.1 mmol/L (3.5-5.1) Chloride Level 102 mmol/L (98-107) Carbon Dioxide Level 19 mmol/L (21-32) Anion Gap 21 (6-14) Blood Urea Nitrogen 18 mg/dL (8-26) Creatinine 1.4 mg/dL (0.7-1.3) Estimated GFR (Cockcroft-Gault) 51.2 BUN/Creatinine Ratio 13 (6-20) Glucose Level 290 mg/dL (70-99) Calcium Level 8.9 mg/dL (8.5-10.1) Phosphorus Level 7.0 mg/dL (2.6-4.7) Magnesium Level 2.5 mg/dL (1.8-2.4) Total Bilirubin 0.5 mg/dL (0.2-1.0) Aspartate Amino Transf (AST/SGOT) 125 U/L (15-37) Alanine Aminotransferase (ALT/SGPT) 187 U/L (16-63) Alkaline Phosphatase 70 U/L (46-116) Creatine Kinase 152 U/L (39-308) Troponin I Quantitative < 0.017 ng/mL (0.000-0.055) UC-Wie-B-Type Natriuretic Peptide 159 pg/mL (0-124) Total Protein 6.3 g/dL (6.4-8.2) Albumin 3.3 g/dL (3.4-5.0) Albumin/Globulin Ratio 1.1 (1.0-1.7) Triglycerides Level 83 mg/dL (0-150) Ethyl Alcohol Level < 10 mg/dL (0-10) O2 Saturation 99 % (92-99) 97 % (92-99) Arterial Blood pH 7.03 (7.35-7.45) 7.34 (7.35-7.45) Arterial Blood pCO2 at Patient Temp 50 mmHg (35-46) 37 mmHg (35-46) Arterial Blood pO2 at Patient Temp 258 mmHg (65-108) 105 mmHg (65-108) Arterial Blood HCO3 13 mmol/L (21-28) 19 mmol/L (21-28) Arterial Blood Base Excess -18 mmol/L (-3-3) -6 mmol/L (-3-3) FiO2 100 vent 60% Test 01/13/20 06:10 Sodium Level 140 mmol/L (136-145) Potassium Level 3.7 mmol/L (3.5-5.1) Chloride Level 106 mmol/L (98-107) Carbon Dioxide Level 22 mmol/L (21-32) Anion Gap 12 (6-14) Blood Urea Nitrogen 31 mg/dL (8-26) Creatinine 1.3 mg/dL (0.7-1.3) Estimated GFR (Cockcroft-Gault) 55.8 Glucose Level 170 mg/dL (70-99) Calcium Level 8.3 mg/dL (8.5-10.1) Magnesium Level 1.5 mg/dL (1.8-2.4) Medications Active Scripts Medications Dose Route/Sig Max Daily Dose Days Date Category Vitamin D3 Complete Caplet (Mv-Mn/Iron/Fa/Herbal Cmplx#190) 1 Each Tablet 1 Each PO BID 01/13/20 Reported Metformin Hcl 1,000 Mg Tablet 1,000 Mg PO BIDWMEALS 01/13/20 Reported Adult Low Dose Aspirin Ec (Aspirin) 81 Mg Tablet.dr 81 Mg PO DAILY 08/21/13 Reported Metoprolol Tartrate 25 Mg Tablet 25 Mg PO BID 08/21/13 Reported Lisinopril 20 Mg Tablet 20 Mg PO DAILY 08/21/13 Reported Plavix (Clopidogrel Bisulfate) 75 Mg Tablet 75 Mg PO DAILY 08/21/13 Reported Atorvastatin Calcium 80 Mg Tablet 80 Mg PO DAILY 08/21/13 Reported Fish Oil 1,200 Mg Fish Oil (Fish Oil/Dha/Epa) 1 Each Capsule 2,400 Mg PO DAILY 08/21/13 Reported Comments CXR: 01/13/20 IMPRESSION: Stable endotracheal intubation with no pneumothorax or other acute complications. Impression . IMPRESSION: 1. Acute hypoxic and hypercapnic respiratory failure secondary to cardiac arrest. 2. Cardiac arrest with V-fib and V-tach. Status post CPR and ACLS protocol for approximately 50 minutes. 3. History of underlying coronary artery disease and suspected non-ST myocardial infarction. 4. Abnormal chest x-ray with faint basal atelectasis or infiltrate. 5. Likely anoxic encephalopathy due to prolonged CPR. 6. Coffee-ground OG aspirate. Could be related to OG trauma. 7. Likely underlying chronic obstructive pulmonary disease. 8. Abnormal ct head with suspected small ischemic infarct 9. Shock Liver 10. Hypertension Plan . RECOMMENDATIONS: 1. Continue with present assist control mode and make changes based on ABGs- reduce FI02 to 40%. and PEEP 5 2. Follow cardiology recommendations. Need for any cardiac intervention per cardiology. 3. The patient has abnormal CT head with ischemic infarct---Not a candidate for hypothermic protocol. 4. Monitor renal output. 5. The patient has shock liver. Need to monitor LFTs. 6. off sedation . No response. likely anoxic brain injury. 7. Anticoagulation per Cardiology. 8. Continue amiodarone per Cardiology. 9. Discussed with family including and discussed with ER physician. 10. Neurology consult-- follow recs 11. HTN per PCP DVT/GI PPX: Heparin/ Pepcid Critical care time 35 minutes. ALEXI LUNDBERG MD January 13, 2020 07:22
--- NOTE | 2020-01-13 07:24 | RAD ---
EXAM: PORTABLE CHEST 1V INDICATION: Ventilated. Status post cardiac arrest.. TECHNIQUE: Single view COMPARISON: Chest x-ray 01/12/2020 FINDINGS: Patient remains intubated with the ET tube terminating 3 cm above the paulino and an enteric tube that passes below the diaphragms, below the field of view. Right subclavian approach central venous catheter remains present, tip near the cavoatrial junction. The heart size is normal. The great vessels appear unremarkable. There is no hilar or mediastinal mass. Lungs show slightly improved aeration and greater lung volumes but there still hypoventilatory. There is no pleural effusion or pneumothorax. There are no significant osseous abnormalities. Soft tissues show placement of an icepack over the lower right neck. IMPRESSION: Stable endotracheal intubation with no pneumothorax or other acute complications. Electronically signed by: Diana Deshpande MD (01/13/2020 7:22 AM) [id number]
[2020-01-13 07:36] LABS: BASE EXCESS ABG 0 mmol/L (-3-3); HCO3 ABG 24 mmol/L (21-28); PCO2 ABG 35 mmHg (35-46); PO2 ABG 231 mmHg (65-108); SAT O2 ABG 99 % (92-99)
[2020-01-13 07:47] LABS: FIO2 ABG 60
[2020-01-13] MEDS ORDERED: MAGNESIUM SULFATE 1GM 100 ML IV ONE (08:00)
[2020-01-13 08:02] LABS: MEAN CORPUSCULAR VOLUME 92 fL (79-100)
[2020-01-13] MEDS: FAMOTIDINE 20 MG/2 ML VIAL IVP SCH ×2 (08:39→21:27)
[2020-01-13 08:56] LABS: % BANDS 23 % (0-9); % LYMPHS 6 % (24-48); % MONOS 8 % (0-10); % SEGS 63 % (35-66); PLT ESTIMATE ADEQUATE (ADEQUATE)
--- NOTE | 2020-01-13 08:57 | PDOC ---
PROGRESS NOTES Chief Complaint Chief Complaint A/P: Acute hypoxic and hypercapnic respiratory failure secondary to cardiac arrest. Ventricular fibrillation Cardiac arrest - s/p CPR and ACLS protocol for approximately 50 minutes. Coronary artery disease and suspected non-ST myocardial infarction. Coffee-ground OG aspirate. Could be related to OG trauma. Likely chronic obstructive pulmonary disease. Abnormal ct head with suspected small ischemic infarct -there is likely an infarct, also concern for significant anoxic brain injury on examination Shock Liver Fever-likely secondary to aspiration, will monitor FEN PPX FULL CODE Dispo - ICU, overall poor prognosis CC time 47 minutes History of Present Illness History of Present Illness Mr Rivas is a 64 y M w/ PMHx CAD (stent 14 yr ago), DM2, ex-smoker (30 pack year history) who presents via EMS on 01/12/2020 after being found down by his family. EMS found him in V-tach, initiated CPR and had ACLS protocol followed for about 20 minutes. In ED had approximately 20-25 minutes of CPR intermittently with shock and ACLS medications with rhythm throughout V-tach and V-fib. ROSC eventually achieved and he was initiated on IV amiodarone and 2 amp ules of bicarbonate. He was requiring low-dose Levophed. Cardiology advised no immediate intervention indicated. Initial ABG pH of 7.03, pCO2 of 50 and a pO2 of 258 started on 60% and [address] head with concern for left parietal ischemia. Initial K 2.7. BUN 18, creatinine 1.4. AST and ALT elevated. WBC 7.1, hemoglobin 15.1, platelets 278,000. Overnight had some shaking episodes. This morning temperature 101.7 F, WBC 21.3, K3.7, CR 1.3, MG 1.5, ABG 7.45/30 5/231 on 60% FiO2. is currently bedside to witness physical examination with eyes deviated upward into the left no meaningful response to pain does have gag to suction. Does not follow any commands has been off sedation for 6 hours. I had a long conversation with who has conference called the sons to discuss goals of further care and they have made it very clear that his wish was not to remain in a persistent vegetative state if there is no meaningful prognosis for neurologic recovery. They are aware of the overall poor prognosis given his prolonged CPR course. Vitals Vitals Vital Signs Date Time Temp Pulse Resp B/P (MAP) Pulse Ox O2 Delivery O2 Flow Rate FiO2 01/13/20 07:45 97 Ventilator 01/13/20 06:44 26 01/13/20 06:00 101.7 105 166/72 (103) 101.7 Physical Exam General: Other (Intubated and on a ventilator.) Heart: Regular rate Abdomen: Normal bowel sounds Labs LABS Laboratory Tests Test 01/12/20 12:00 01/12/20 12:45 01/12/20 15:00 01/12/20 16:55 White Blood Count 7.1 x10^3/uL (4.0-11.0) Red Blood Count 4.85 x10^6/uL (4.30-5.70) Hemoglobin 15.1 g/dL (13.0-17.5) Hematocrit 46.9 % (39.0-53.0) Mean Corpuscular Volume 97 fL (79-100) Mean Corpuscular Hemoglobin 31 pg (25-35) Mean Corpuscular Hemoglobin Concent 32 g/dL (31-37) Red Cell Distribution Width 13.5 % (11.5-14.5) Platelet Count 278 x10^3/uL (140-400) Neutrophils (%) (Auto) 26 % (31-73) Lymphocytes (%) (Auto) 66 % (24-48) Monocytes (%) (Auto) 4 % (0-9) Eosinophils (%) (Auto) 3 % (0-3) Basophils (%) (Auto) 1 % (0-3) Neutrophils # (Auto) 1.9 x10^3/uL (1.8-7.7) Lymphocytes # (Auto) 4.7 x10^3/uL (1.0-4.8) Monocytes # (Auto) 0.3 x10^3/uL (0.0-1.1) Eosinophils # (Auto) 0.2 x10^3/uL (0.0-0.7) Basophils # (Auto) 0.0 x10^3/uL (0.0-0.2) Prothrombin Time 14.6 SEC (11.7-14.0) Prothromb Time International Ratio 1.2 (0.8-1.1) Activated Partial Thromboplast Time 33 SEC (24-38) Sodium Level 142 mmol/L (136-145) Potassium Level 2.7 mmol/L (3.5-5.1) 3.1 mmol/L (3.5-5.1) Chloride Level 102 mmol/L (98-107) Carbon Dioxide Level 19 mmol/L (21-32) Anion Gap 21 (6-14) Blood Urea Nitrogen 18 mg/dL (8-26) Creatinine 1.4 mg/dL (0.7-1.3) Estimated GFR (Cockcroft-Gault) 51.2 BUN/Creatinine Ratio 13 (6-20) Glucose Level 290 mg/dL (70-99) Calcium Level 8.9 mg/dL (8.5-10.1) Phosphorus Level 7.0 mg/dL (2.6-4.7) Magnesium Level 2.5 mg/dL (1.8-2.4) Total Bilirubin 0.5 mg/dL (0.2-1.0) Aspartate Amino Transf (AST/SGOT) 125 U/L (15-37) Alanine Aminotransferase (ALT/SGPT) 187 U/L (16-63) Alkaline Phosphatase 70 U/L (46-116) Creatine Kinase 152 U/L (39-308) Troponin I Quantitative < 0.017 ng/mL (0.000-0.055) SA-Vby-Z-Type Natriuretic Peptide 159 pg/mL (0-124) Total Protein 6.3 g/dL (6.4-8.2) Albumin 3.3 g/dL (3.4-5.0) Albumin/Globulin Ratio 1.1 (1.0-1.7) Triglycerides Level 83 mg/dL (0-150) Ethyl Alcohol Level < 10 mg/dL (0-10) O2 Saturation 99 % (92-99) 97 % (92-99) Arterial Blood pH 7.03 (7.35-7.45) 7.34 (7.35-7.45) Arterial Blood pCO2 at Patient Temp 50 mmHg (35-46) 37 mmHg (35-46) Arterial Blood pO2 at Patient Temp 258 mmHg (65-108) 105 mmHg (65-108) Arterial Blood HCO3 13 mmol/L (21-28) 19 mmol/L (21-28) Arterial Blood Base Excess -18 mmol/L (-3-3) -6 mmol/L (-3-3) FiO2 100 vent 60% Test 01/13/20 06:10 01/13/20 07:32 White Blood Count 21.9 x10^3/uL (4.0-11.0) Red Blood Count 5.20 x10^6/uL (4.30-5.70) Hemoglobin 15.9 g/dL (13.0-17.5) Hematocrit 47.6 % (39.0-53.0) Mean Corpuscular Volume 92 fL (79-100) Mean Corpuscular Hemoglobin 31 pg (25-35) Mean Corpuscular Hemoglobin Concent 33 g/dL (31-37) Red Cell Distribution Width 13.0 % (11.5-14.5) Platelet Count 325 x10^3/uL (140-400) Neutrophils (%) (Auto) 87 % (31-73) Lymphocytes (%) (Auto) 7 % (24-48) Monocytes (%) (Auto) 6 % (0-9) Eosinophils (%) (Auto) 0 % (0-3) Basophils (%) (Auto) 0 % (0-3) Neutrophils # (Auto) 19.0 x10^3/uL (1.8-7.7) Lymphocytes # (Auto) 1.4 x10^3/uL (1.0-4.8) Monocytes # (Auto) 1.4 x10^3/uL (0.0-1.1) Eosinophils # (Auto) 0.0 x10^3/uL (0.0-0.7) Basophils # (Auto) 0.0 x10^3/uL (0.0-0.2) Sodium Level 140 mmol/L (136-145) Potassium Level 3.7 mmol/L (3.5-5.1) Chloride Level 106 mmol/L (98-107) Carbon Dioxide Level 22 mmol/L (21-32) Anion Gap 12 (6-14) Blood Urea Nitrogen 31 mg/dL (8-26) Creatinine 1.3 mg/dL (0.7-1.3) Estimated GFR (Cockcroft-Gault) 55.8 Glucose Level 170 mg/dL (70-99) Calcium Level 8.3 mg/dL (8.5-10.1) Magnesium Level 1.5 mg/dL (1.8-2.4) O2 Saturation 99 % (92-99) Arterial Blood pH 7.45 (7.35-7.45) Arterial Blood pCO2 at Patient Temp 35 mmHg (35-46) Arterial Blood pO2 at Patient Temp 231 mmHg (65-108) Arterial Blood HCO3 24 mmol/L (21-28) Arterial Blood Base Excess 0 mmol/L (-3-3) FiO2 60 Assessment and Plan Assessmemt and Plan Problems Medical Problems: (1) Cardiac arrest Status: Acute Comment Review of Relevant I have reviewed the following items france (where applicable) has been applied. Labs Laboratory Tests Test 01/12/20 12:00 01/12/20 12:45 01/12/20 15:00 01/12/20 16:55 White Blood Count 7.1 x10^3/uL (4.0-11.0) Red Blood Count 4.85 x10^6/uL (4.30-5.70) Hemoglobin 15.1 g/dL (13.0-17.5) Hematocrit 46.9 % (39.0-53.0) Mean Corpuscular Volume 97 fL (79-100) Mean Corpuscular Hemoglobin 31 pg (25-35) Mean Corpuscular Hemoglobin Concent 32 g/dL (31-37) Red Cell Distribution Width 13.5 % (11.5-14.5) Platelet Count 278 x10^3/uL (140-400) Neutrophils (%) (Auto) 26 % (31-73) Lymphocytes (%) (Auto) 66 % (24-48) Monocytes (%) (Auto) 4 % (0-9) Eosinophils (%) (Auto) 3 % (0-3) Basophils (%) (Auto) 1 % (0-3) Neutrophils # (Auto) 1.9 x10^3/uL (1.8-7.7) Lymphocytes # (Auto) 4.7 x10^3/uL (1.0-4.8) Monocytes # (Auto) 0.3 x10^3/uL (0.0-1.1) Eosinophils # (Auto) 0.2 x10^3/uL (0.0-0.7) Basophils # (Auto) 0.0 x10^3/uL (0.0-0.2) Prothrombin Time 14.6 SEC (11.7-14.0) Prothromb Time International Ratio 1.2 (0.8-1.1) Activated Partial Thromboplast Time 33 SEC (24-38) Sodium Level 142 mmol/L (136-145) Potassium Level 2.7 mmol/L (3.5-5.1) 3.1 mmol/L (3.5-5.1) Chloride Level 102 mmol/L (98-107) Carbon Dioxide Level 19 mmol/L (21-32) Anion Gap 21 (6-14) Blood Urea Nitrogen 18 mg/dL (8-26) Creatinine 1.4 mg/dL (0.7-1.3) Estimated GFR (Cockcroft-Gault) 51.2 BUN/Creatinine Ratio 13 (6-20) Glucose Level 290 mg/dL (70-99) Calcium Level 8.9 mg/dL (8.5-10.1) Phosphorus Level 7.0 mg/dL (2.6-4.7) Magnesium Level 2.5 mg/dL (1.8-2.4) Total Bilirubin 0.5 mg/dL (0.2-1.0) Aspartate Amino Transf (AST/SGOT) 125 U/L (15-37) Alanine Aminotransferase (ALT/SGPT) 187 U/L (16-63) Alkaline Phosphatase 70 U/L (46-116) Creatine Kinase 152 U/L (39-308) Troponin I Quantitative < 0.017 ng/mL (0.000-0.055) IC-Wbu-S-Type Natriuretic Peptide 159 pg/mL (0-124) Total Protein 6.3 g/dL (6.4-8.2) Albumin 3.3 g/dL (3.4-5.0) Albumin/Globulin Ratio 1.1 (1.0-1.7) Triglycerides Level 83 mg/dL (0-150) Ethyl Alcohol Level < 10 mg/dL (0-10) O2 Saturation 99 % (92-99) 97 % (92-99) Arterial Blood pH 7.03 (7.35-7.45) 7.34 (7.35-7.45) Arterial Blood pCO2 at Patient Temp 50 mmHg (35-46) 37 mmHg (35-46) Arterial Blood pO2 at Patient Temp 258 mmHg (65-108) 105 mmHg (65-108) Arterial Blood HCO3 13 mmol/L (21-28) 19 mmol/L (21-28) Arterial Blood Base Excess -18 mmol/L (-3-3) -6 mmol/L (-3-3) FiO2 100 vent 60% Test 01/13/20 06:10 01/13/20 07:32 White Blood Count 21.9 x10^3/uL (4.0-11.0) Red Blood Count 5.20 x10^6/uL (4.30-5.70) Hemoglobin 15.9 g/dL (13.0-17.5) Hematocrit 47.6 % (39.0-53.0) Mean Corpuscular Volume 92 fL (79-100) Mean Corpuscular Hemoglobin 31 pg (25-35) Mean Corpuscular Hemoglobin Concent 33 g/dL (31-37) Red Cell Distribution Width 13.0 % (11.5-14.5) Platelet Count 325 x10^3/uL (140-400) Neutrophils (%) (Auto) 87 % (31-73) Lymphocytes (%) (Auto) 7 % (24-48) Monocytes (%) (Auto) 6 % (0-9) Eosinophils (%) (Auto) 0 % (0-3) Basophils (%) (Auto) 0 % (0-3) Neutrophils # (Auto) 19.0 x10^3/uL (1.8-7.7) Lymphocytes # (Auto) 1.4 x10^3/uL (1.0-4.8) Monocytes # (Auto) 1.4 x10^3/uL (0.0-1.1) Eosinophils # (Auto) 0.0 x10^3/uL (0.0-0.7) Basophils # (Auto) 0.0 x10^3/uL (0.0-0.2) Sodium Level 140 mmol/L (136-145) Potassium Level 3.7 mmol/L (3.5-5.1) Chloride Level 106 mmol/L (98-107) Carbon Dioxide Level 22 mmol/L (21-32) Anion Gap 12 (6-14) Blood Urea Nitrogen 31 mg/dL (8-26) Creatinine 1.3 mg/dL (0.7-1.3) Estimated GFR (Cockcroft-Gault) 55.8 Glucose Level 170 mg/dL (70-99) Calcium Level 8.3 mg/dL (8.5-10.1) Magnesium Level 1.5 mg/dL (1.8-2.4) O2 Saturation 99 % (92-99) Arterial Blood pH 7.45 (7.35-7.45) Arterial Blood pCO2 at Patient Temp 35 mmHg (35-46) Arterial Blood pO2 at Patient Temp 231 mmHg (65-108) Arterial Blood HCO3 24 mmol/L (21-28) Arterial Blood Base Excess 0 mmol/L (-3-3) FiO2 60 Laboratory Tests Test 01/12/20 12:00 01/12/20 12:45 01/12/20 15:00 01/12/20 16:55 White Blood Count 7.1 x10^3/uL (4.0-11.0) Red Blood Count 4.85 x10^6/uL (4.30-5.70) Hemoglobin 15.1 g/dL (13.0-17.5) Hematocrit 46.9 % (39.0-53.0) Mean Corpuscular Volume 97 fL (79-100) Mean Corpuscular Hemoglobin 31 pg (25-35) Mean Corpuscular Hemoglobin Concent 32 g/dL (31-37) Red Cell Distribution Width 13.5 % (11.5-14.5) Platelet Count 278 x10^3/uL (140-400) Neutrophils (%) (Auto) 26 % (31-73) Lymphocytes (%) (Auto) 66 % (24-48) Monocytes (%) (Auto) 4 % (0-9) Eosinophils (%) (Auto) 3 % (0-3) Basophils (%) (Auto) 1 % (0-3) Neutrophils # (Auto) 1.9 x10^3/uL (1.8-7.7) Lymphocytes # (Auto) 4.7 x10^3/uL (1.0-4.8) Monocytes # (Auto) 0.3 x10^3/uL (0.0-1.1) Eosinophils # (Auto) 0.2 x10^3/uL (0.0-0.7) Basophils # (Auto) 0.0 x10^3/uL (0.0-0.2) Prothrombin Time 14.6 SEC (11.7-14.0) Prothromb Time International Ratio 1.2 (0.8-1.1) Activated Partial Thromboplast Time 33 SEC (24-38) Sodium Level 142 mmol/L (136-145) Potassium Level 2.7 mmol/L (3.5-5.1) 3.1 mmol/L (3.5-5.1) Chloride Level 102 mmol/L (98-107) Carbon Dioxide Level 19 mmol/L (21-32) Anion Gap 21 (6-14) Blood Urea Nitrogen 18 mg/dL (8-26) Creatinine 1.4 mg/dL (0.7-1.3) Estimated GFR (Cockcroft-Gault) 51.2 BUN/Creatinine Ratio 13 (6-20) Glucose Level 290 mg/dL (70-99) Calcium Level 8.9 mg/dL (8.5-10.1) Phosphorus Level 7.0 mg/dL (2.6-4.7) Magnesium Level 2.5 mg/dL (1.8-2.4) Total Bilirubin 0.5 mg/dL (0.2-1.0) Aspartate Amino Transf (AST/SGOT) 125 U/L (15-37) Alanine Aminotransferase (ALT/SGPT) 187 U/L (16-63) Alkaline Phosphatase 70 U/L (46-116) Creatine Kinase 152 U/L (39-308) Troponin I Quantitative < 0.017 ng/mL (0.000-0.055) DJ-Bmn-R-Type Natriuretic Peptide 159 pg/mL (0-124) Total Protein 6.3 g/dL (6.4-8.2) Albumin 3.3 g/dL (3.4-5.0) Albumin/Globulin Ratio 1.1 (1.0-1.7) Triglycerides Level 83 mg/dL (0-150) Ethyl Alcohol Level < 10 mg/dL (0-10) O2 Saturation 99 % (92-99) 97 % (92-99) Arterial Blood pH 7.03 (7.35-7.45) 7.34 (7.35-7.45) Arterial Blood pCO2 at Patient Temp 50 mmHg (35-46) 37 mmHg (35-46) Arterial Blood pO2 at Patient Temp 258 mmHg (65-108) 105 mmHg (65-108) Arterial Blood HCO3 13 mmol/L (21-28) 19 mmol/L (21-28) Arterial Blood Base Excess -18 mmol/L (-3-3) -6 mmol/L (-3-3) FiO2 100 vent 60% Test 01/13/20 06:10 01/13/20 07:32 White Blood Count 21.9 x10^3/uL (4.0-11.0) Red Blood Count 5.20 x10^6/uL (4.30-5.70) Hemoglobin 15.9 g/dL (13.0-17.5) Hematocrit 47.6 % (39.0-53.0) Mean Corpuscular Volume 92 fL (79-100) Mean Corpuscular Hemoglobin 31 pg (25-35) Mean Corpuscular Hemoglobin Concent 33 g/dL (31-37) Red Cell Distribution Width 13.0 % (11.5-14.5) Platelet Count 325 x10^3/uL (140-400) Neutrophils (%) (Auto) 87 % (31-73) Lymphocytes (%) (Auto) 7 % (24-48) Monocytes (%) (Auto) 6 % (0-9) Eosinophils (%) (Auto) 0 % (0-3) Basophils (%) (Auto) 0 % (0-3) Neutrophils # (Auto) 19.0 x10^3/uL (1.8-7.7) Lymphocytes # (Auto) 1.4 x10^3/uL (1.0-4.8) Monocytes # (Auto) 1.4 x10^3/uL (0.0-1.1) Eosinophils # (Auto) 0.0 x10^3/uL (0.0-0.7) Basophils # (Auto) 0.0 x10^3/uL (0.0-0.2) Sodium Level 140 mmol/L (136-145) Potassium Level 3.7 mmol/L (3.5-5.1) Chloride Level 106 mmol/L (98-107) Carbon Dioxide Level 22 mmol/L (21-32) Anion Gap 12 (6-14) Blood Urea Nitrogen 31 mg/dL (8-26) Creatinine 1.3 mg/dL (0.7-1.3) Estimated GFR (Cockcroft-Gault) 55.8 Glucose Level 170 mg/dL (70-99) Calcium Level 8.3 mg/dL (8.5-10.1) Magnesium Level 1.5 mg/dL (1.8-2.4) O2 Saturation 99 % (92-99) Arterial Blood pH 7.45 (7.35-7.45) Arterial Blood pCO2 at Patient Temp 35 mmHg (35-46) Arterial Blood pO2 at Patient Temp 231 mmHg (65-108) Arterial Blood HCO3 24 mmol/L (21-28) Arterial Blood Base Excess 0 mmol/L (-3-3) FiO2 60 Medications Current Medications Heparin Sodium/ Sodium Chloride 0 ml @ As Directed STK-MED ONCE .ROUTE ; Start 01/12/20 at 12:25; Stop 01/12/20 at 12:25; Status DC Fentanyl Citrate (Fentanyl 2ml Vial) 100 mcg STK-MED ONCE .ROUTE ; Start 01/12/20 at 12:26; Stop 01/12/20 at 12:26; Status DC Midazolam HCl (Versed) 2 mg STK-MED ONCE .ROUTE ; Start 01/12/20 at 12:26; Stop 01/12/20 at 12:26; Status DC Iodixanol (Visipaque 320) 100 ml STK-MED ONCE .ROUTE ; Start 01/12/20 at 12:26; Stop 01/12/20 at 12:26; Status DC Lidocaine HCl (Lidocaine 1% 20ml Vial) 20 ml STK-MED ONCE .ROUTE ; Start 01/12/20 at 12:26; Stop 01/12/20 at 12:27; Status DC Amiodarone HCl 450 mg/Dextrose 259 ml @ 0 mls/hr CONT PRN IV SEE I/O RECORD; Start 01/12/20 at 12:45; Status UNV Amiodarone HCl 450 mg/Dextrose 259 ml @ 33 mls/hr CONT PRN IV SEE I/O RECORD Last administered on 01/13/20at 03:07; Start 01/12/20 at 12:45; Stop 01/13/20 at 03:07; Status DC Fentanyl Citrate (Fentanyl 2ml Vial) 100 mcg 1X ONCE IV Last administered on 01/12/20at 12:54; Start 01/12/20 at 13:00; Stop 01/12/20 at 13:01; Status DC Midazolam HCl (Versed) 2 mg 1X ONCE IV Last administered on 01/12/20at 12:54; Start 01/12/20 at 13:00; Stop 01/12/20 at 13:01; Status DC Magnesium Sulfate/ Dextrose 100 ml @ 100 mls/hr 1X ONCE IV ; Start 01/12/20 at 13:00; Stop 01/12/20 at 13:59; Status DC Buspirone HCl (Buspar) 30 mg Q8H NG ; Start 01/12/20 at 13:00; Stop 01/12/20 at 17:03; Status DC Acetaminophen (Tylenol) 650 mg Q4H NG ; Start 01/12/20 at 13:00; Stop 01/12/20 at 21:13; Status DC Acetaminophen (Tylenol Supp) 650 mg PRN Q4HRS PRN FL IF NO NG DOSE GIVEN; Start 01/12/20 at 12:45 Artificial Tears (Artificial Tears) 1 drop Q6HRS OU ; Start 01/12/20 at 18:00; Stop 01/12/20 at 21:13; Status DC Artificial Tears (Artificial Tears) 1 drop PRN Q15MIN PRN OU DRY EYE; Start 01/12/20 at 12:45 Heparin Sodium (Porcine) (Heparin Sodium) 5,000 unit BID SQ Last administered on 01/12/20at 21:19; Start 01/12/20 at 21:00 Pantoprazole Sodium (PROTONIX VIAL for IV PUSH) 40 mg DAILY IVP ; Start 01/13/20 at 09:00; Stop 01/12/20 at 17:03; Status DC Fentanyl Citrate 30 ml @ 0 mls/hr CONT PRN IV PER PROTOCOL.; Start 01/12/20 at 12:45 Propofol 100 ml @ 0 mls/hr CONT PRN IV PER PROTOCOL.; Start 01/12/20 at 12:45 Midazolam HCl 100 ml @ 0 mls/hr CONT PRN IV PER PROTOCOL. Last administered on 01/12/20at 13:32; Start 01/12/20 at 12:45 Vecuronium [place] (Norcuron Bolus) 10 mg PRN Q1HR PRN IV SHIVERING; Start 01/12/20 at 12:45 Fentanyl Citrate 30 ml @ 0 mls/hr CONT PRN IV SEE PROTOCOL; Start 01/12/20 at 13:00; Status UNV Fentanyl Citrate (Fentanyl 2ml Vial) 25 mcg PRN Q1HR PRN IV SEE COMMENTS; Start 01/12/20 at 13:00 Fentanyl Citrate (Fentanyl 2ml Vial) 50 mcg PRN Q1HR PRN IV SEE COMMENTS Last administered on 01/13/20at 06:06; Start 01/12/20 at 13:00 Chlorhexidine Gluconate (Peridex) 15 ml BID MM ; Start 01/12/20 at 21:00; Stop 01/12/20 at 17:03; Status DC Midazolam HCl 100 ml @ 0 mls/hr CONT PRN IV SEE PROTOCOL; Start 01/12/20 at 13:00; Status UNV Potassium Chloride/Water 100 ml @ 50 mls/hr 1X ONCE IV Last administered on 01/12/20at 14:00; Start 01/12/20 at 14:00; Stop 01/12/20 at 15:59; Status DC Dopamine HCl/ Dextrose 250 ml @ 17.944 mls/ hr CONT PRN PRN IV SEE PROTOCOL; Start 01/12/20 at 16:49 Famotidine (Pepcid Vial) 20 mg BID IVP Last administered on 01/12/20at 21:17; Start 01/12/20 at 21:00 Potassium Chloride/Water 100 ml @ 100 mls/hr Q1H IV Last administered on 01/12/20at 20:26; Start 01/12/20 at 17:30; Stop 01/12/20 at 19:29; Status DC Sodium Chloride 1,000 ml @ 100 mls/hr Q10H IV Last administered on 01/13/20at 04:17; Start 01/12/20 at 18:30 Acetaminophen (Tylenol) 650 mg PRN Q6HRS PRN PEG MILD PAIN / TEMP > 100.3'F Las t administered on 01/13/20at 04:16; Start 01/13/20 at 04:15 Magnesium Sulfate/ Dextrose 100 ml @ 100 mls/hr 1X ONCE IV Last administered on 01/13/20at 07:59; Start 01/13/20 at 08:00; Stop 01/13/20 at 08:59 Active Scripts Active Reported Vitamin D3 Complete Caplet (Mv-Mn/Iron/Fa/Herbal Cmplx#190) 1 Each Tablet 1 Each PO BID Metformin Hcl 1,000 Mg Tablet 1,000 Mg PO BIDWMEALS Adult Low Dose Aspirin Ec (Aspirin) 81 Mg Tablet.dr 81 Mg PO DAILY Metoprolol Tartrate 25 Mg Tablet 25 Mg PO BID Lisinopril 20 Mg Tablet 20 Mg PO DAILY Plavix (Clopidogrel Bisulfate) 75 Mg Tablet 75 Mg PO DAILY Atorvastatin Calcium 80 Mg Tablet 80 Mg PO DAILY Fish Oil 1,200 Mg Fish Oil (Fish Oil/Dha/Epa) 1 Each Capsule 2,400 Mg PO DAILY Vitals/I & O Vital Sign - Last 24 Hours 01/12/20 01/12/20 01/12/20 01/12/20 11:55 12:16 12:21 12:23 Temp 97.2 97.2 Pulse 80 93 107 119 Resp B/P (MAP) 300/300 (300) 75/47 (56) 128/75 (92) 194/106 (135) Pulse Ox 89 92 100 96 O2 Delivery Bag Valve Mask Ventilator Ventilator Ventilator 01/12/20 01/12/20 01/12/20 01/12/20 12:25 12:27 12:29 12:31 Pulse 106 96 91 83 Resp B/P (MAP) 126/70 (88) 101/58 (72) 94/50 (65) 77/51 (60) Pulse Ox 98 96 97 98 O2 Delivery Ventilator Ventilator Ventilator Ventilator 01/12/20 01/12/20 01/12/20 01/12/20 12:33 12:35 12:37 12:39 Pulse 77 77 77 80 Resp B/P (MAP) 71/47 (55) 67/46 (53) 71/49 (56) 85/52 (63) Pulse Ox 96 98 98 97 O2 Delivery Ventilator Ventilator Ventilator Ventilator 01/12/20 01/12/20 01/12/20 01/12/20 12:41 12:43 12:45 12:45 Pulse 82 83 89 Resp B/P (MAP) 93/54 (67) 102/58 (73) 117/57 (77) Pulse Ox 94 98 98 100 O2 Delivery Ventilator Ventilator Ventilator Ventilator 01/12/20 01/12/20 01/12/20 01/12/20 12:47 12:49 12:51 12:53 Pulse 94 97 101 104 Resp B/P (MAP) 139/71 (93) 152/75 (100) 157/77 (103) 158/77 (104) Pulse Ox 99 100 100 100 O2 Delivery Ventilator Ventilator Ventilator Ventilator 01/12/20 01/12/20 01/12/20 01/12/20 12:55 12:55 12:57 12:59 Pulse 106 113 112 Resp B/P (MAP) 166/83 (110) 158/73 (101) 154/72 (99) Pulse Ox 100 99 99 99 O2 Delivery Ventilator Ventilator Ventilator Ventilator 01/12/20 01/12/20 01/12/20 01/12/20 13:01 13:03 13:05 13:07 Pulse 112 113 113 111 Resp B/P (MAP) 149/71 (97) 137/63 (87) 138/66 (90) 138/65 (89) Pulse Ox 99 100 100 99 O2 Delivery Ventilator Ventilator Ventilator Ventilator 01/12/20 01/12/20 01/12/20 01/12/20 13:09 13:15 13:17 13:19 Pulse 110 107 106 102 Resp B/P (MAP) 131/66 (87) 126/65 (85) 117/64 (81) 108/62 (77) Pulse Ox 100 100 99 99 O2 Delivery Ventilator Ventilator Ventilator Ventilator 01/12/20 01/12/20 01/12/20 01/12/20 13:21 13:23 13:25 16:00 Pulse 101 97 94 Resp B/P (MAP) 113/63 (80) 105/63 (77) 109/59 (76) Pulse Ox 99 100 100 O2 Delivery Ventilator Ventilator Ventilator Mechanical Ventilator 01/12/20 01/12/20 01/12/20 01/12/20 16:00 16:14 16:15 16:30 Temp 98.2 98.2 Pulse 88 76 84 Resp B/P (MAP) 116/70 (85) 125/81 (96) 119/81 (94) Pulse Ox 100 100 100 100 O2 Delivery Ventilator Ventilator Ventilator Ventilator 01/12/20 01/12/20 01/12/20 01/12/20 16:45 17:00 17:15 18:00 Pulse 74 76 70 68 Resp B/P (MAP) 132/88 (103) 125/81 (96) 131/81 (98) 133/79 (97) Pulse Ox 100 100 100 100 O2 Delivery Ventilator Ventilator Ventilator Ventilator 01/12/20 01/12/20 01/12/2001/11/20 19:00 19:53 20:00 20:00 Temp 98.6 98.6 Pulse 69 66 Resp B/P (MAP) 142/77 (98) 147/70 (95) Pulse Ox 100 100 100 O2 Delivery Ventilator Ventilator Mechanical Ventilator Ventilator 01/12/20 01/12/20 01/12/20 01/13/20 21:00 22:00 23:00 00:00 Pulse 66 75 94 Resp B/P (MAP) 148/74 (98) 161/74 (103) 154/75 (101) Pulse Ox 100 100 100 O2 Delivery Ventilator Ventilator Ventilator Mechanical Ventilator 01/13/20 01/13/20 01/13/20 01/13/20 00:00 00:00 01:00 01:39 Temp 99.8 99.8 Pulse 84 85 B/P (MAP) 165/71 (102) 164/73 (103) Pulse Ox 100 99 99 100 O2 Delivery Ventilator Ventilator Ventilator Ventilator 01/13/20 01/13/20 01/13/20 01/13/20 02:00 03:00 03:07 04:00 Temp 101.1 101.1 Pulse 98 100 105 Resp B/P (MAP) 168/81 (110) 159/72 (101) 175/75 (108) Pulse Ox 100 100 99 99 O2 Delivery Ventilator Ventilator Ventilator Ventilator 01/13/20 01/13/20 01/13/20 01/13/20 04:00 04:04 04:10 05:00 Pulse 112 B/P (MAP) 165/68 (100) Pulse Ox 100 99 99 O2 Delivery Mechanical Ventilator Ventilator Ventilator Ventilator 01/13/20 01/13/20 01/13/20 01/13/20 05:57 06:00 06:06 06:44 Temp 101.7 101.7 Pulse 105 Resp B/P (MAP) 166/72 (103) Pulse Ox 100 99 99 100 O2 Delivery Ventilator Ventilator Ventilator Ventilator 01/13/20 01/13/20 07:23 07:45 Pulse Ox 99 97 O2 Delivery Ventilator Ventilator Intake and Output 01/12/20 01/12/20 01/13/20 15:00 23:00 07:00 Intake Total 200 ml 1521.4 ml Output Total 390 ml 490 ml Balance -190 ml 1031.4 ml MIKEY ARROYO MD January 13, 2020 08:57
[2020-01-13] MEDS ORDERED: PANTOPRAZOLE IV PUSH 40 MG VIAL. IVP SCH (09:00)
--- NOTE | 2020-01-13 11:11 | PDOC ---
PROGRESS NOTES Subjective Subjective Patient seen and examined Objective Objective Vital Signs Date Time Temp Pulse Resp B/P (MAP) Pulse Ox O2 Delivery O2 Flow Rate FiO2 01/13/20 07:45 97 Ventilator 01/13/20 06:44 26 01/13/20 06:00 101.7 105 166/72 (103) 101.7 Intake and Output 01/13/20 07:00 Intake Total 1721.4 ml Output Total 880 ml Balance 841.4 ml Intake Oral 0 ml IV Total 1721.4 ml Output Urine Total 880 ml Physical Exam Abdomen: Normal bowel sounds Heart: Regular rate General: Other (Intubated and on a ventilator) Lungs: Other (Decreased breath sounds) Assessment Assessment Problems Medical Problems: (1) Cardiac arrest Status: Acute 1. On out of hospital cardiac arrest. Prolonged CPR time. Rhythm improved overnight on IV amiodarone. Blood pressure is also improved today on pressors. CT scan of the head showed a hypodensity in the posterior right parietal lobe which was possibly ischemic and could potentially have been due to an acute or subacute infarct. We will continue present medications and closely monitor. We will check an ECHO. 2. History of distant stent placement 14 years ago. Patient has been followed by Dr. Pierre at . He reportedly had been feeling well prior to his event. 3. Diabetes mellitus. As per the primary service. 4. Respiratory failure. Patient remains intubated and on a ventilator. He is being followed by the pulmonary service. Comment Review of Relevant I have reviewed the following items [place] (where applicable) has been applied. Labs Laboratory Tests Test 01/12/20 12:00 01/12/20 12:45 01/12/20 15:00 01/12/20 16:55 White Blood Count 7.1 x10^3/uL (4.0-11.0) Red Blood Count 4.85 x10^6/uL (4.30-5.70) Hemoglobin 15.1 g/dL (13.0-17.5) Hematocrit 46.9 % (39.0-53.0) Mean Corpuscular Volume 97 fL (79-100) Mean Corpuscular Hemoglobin 31 pg (25-35) Mean Corpuscular Hemoglobin Concent 32 g/dL (31-37) Red Cell Distribution Width 13.5 % (11.5-14.5) Platelet Count 278 x10^3/uL (140-400) Neutrophils (%) (Auto) 26 % (31-73) Lymphocytes (%) (Auto) 66 % (24-48) Monocytes (%) (Auto) 4 % (0-9) Eosinophils (%) (Auto) 3 % (0-3) Basophils (%) (Auto) 1 % (0-3) Neutrophils # (Auto) 1.9 x10^3/uL (1.8-7.7) Lymphocytes # (Auto) 4.7 x10^3/uL (1.0-4.8) Monocytes # (Auto) 0.3 x10^3/uL (0.0-1.1) Eosinophils # (Auto) 0.2 x10^3/uL (0.0-0.7) Basophils # (Auto) 0.0 x10^3/uL (0.0-0.2) Prothrombin Time 14.6 SEC (11.7-14.0) Prothromb Time International Ratio 1.2 (0.8-1.1) Activated Partial Thromboplast Time 33 SEC (24-38) Sodium Level 142 mmol/L (136-145) Potassium Level 2.7 mmol/L (3.5-5.1) 3.1 mmol/L (3.5-5.1) Chloride Level 102 mmol/L (98-107) Carbon Dioxide Level 19 mmol/L (21-32) Anion Gap 21 (6-14) Blood Urea Nitrogen 18 mg/dL (8-26) Creatinine 1.4 mg/dL (0.7-1.3) Estimated GFR (Cockcroft-Gault) 51.2 BUN/Creatinine Ratio 13 (6-20) Glucose Level 290 mg/dL (70-99) Calcium Level 8.9 mg/dL (8.5-10.1) Phosphorus Level 7.0 mg/dL (2.6-4.7) Magnesium Level 2.5 mg/dL (1.8-2.4) Total Bilirubin 0.5 mg/dL (0.2-1.0) Aspartate Amino Transf (AST/SGOT) 125 U/L (15-37) Alanine Aminotransferase (ALT/SGPT) 187 U/L (16-63) Alkaline Phosphatase 70 U/L (46-116) Creatine Kinase 152 U/L (39-308) Troponin I Quantitative < 0.017 ng/mL (0.000-0.055) HT-Clt-P-Type Natriuretic Peptide 159 pg/mL (0-124) Total Protein 6.3 g/dL (6.4-8.2) Albumin 3.3 g/dL (3.4-5.0) Albumin/Globulin Ratio 1.1 (1.0-1.7) Triglycerides Level 83 mg/dL (0-150) Ethyl Alcohol Level < 10 mg/dL (0-10) O2 Saturation 99 % (92-99) 97 % (92-99) Arterial Blood pH 7.03 (7.35-7.45) 7.34 (7.35-7.45) Arterial Blood pCO2 at Patient Temp 50 mmHg (35-46) 37 mmHg (35-46) Arterial Blood pO2 at Patient Temp 258 mmHg (65-108) 105 mmHg (65-108) Arterial Blood HCO3 13 mmol/L (21-28) 19 mmol/L (21-28) Arterial Blood Base Excess -18 mmol/L (-3-3) -6 mmol/L (-3-3) FiO2 100 vent 60% Test 01/13/20 06:10 01/13/20 07:32 White Blood Count 21.9 x10^3/uL (4.0-11.0) Red Blood Count 5.20 x10^6/uL (4.30-5.70) Hemoglobin 15.9 g/dL (13.0-17.5) Hematocrit 47.6 % (39.0-53.0) Mean Corpuscular Volume 92 fL (79-100) Mean Corpuscular Hemoglobin 31 pg (25-35) Mean Corpuscular Hemoglobin Concent 33 g/dL (31-37) Red Cell Distribution Width 13.0 % (11.5-14.5) Platelet Count 325 x10^3/uL (140-400) Neutrophils (%) (Auto) 87 % (31-73) Lymphocytes (%) (Auto) 7 % (24-48) Monocytes (%) (Auto) 6 % (0-9) Eosinophils (%) (Auto) 0 % (0-3) Basophils (%) (Auto) 0 % (0-3) Neutrophils # (Auto) 19.0 x10^3/uL (1.8-7.7) Lymphocytes # (Auto) 1.4 x10^3/uL (1.0-4.8) Monocytes # (Auto) 1.4 x10^3/uL (0.0-1.1) Eosinophils # (Auto) 0.0 x10^3/uL (0.0-0.7) Basophils # (Auto) 0.0 x10^3/uL (0.0-0.2) Segmented Neutrophils % 63 % (35-66) Band Neutrophils % 23 % (0-9) Lymphocytes % 6 % (24-48) Monocytes % 8 % (0-10) Platelet Estimate Adequate (ADEQUATE) Sodium Level 140 mmol/L (136-145) Potassium Level 3.7 mmol/L (3.5-5.1) Chloride Level 106 mmol/L (98-107) Carbon Dioxide Level 22 mmol/L (21-32) Anion Gap 12 (6-14) Blood Urea Nitrogen 31 mg/dL (8-26) Creatinine 1.3 mg/dL (0.7-1.3) Estimated GFR (Cockcroft-Gault) 55.8 Glucose Level 170 mg/dL (70-99) Calcium Level 8.3 mg/dL (8.5-10.1) Magnesium Level 1.5 mg/dL (1.8-2.4) O2 Saturation 99 % (92-99) Arterial Blood pH 7.45 (7.35-7.45) Arterial Blood pCO2 at Patient Temp 35 mmHg (35-46) Arterial Blood pO2 at Patient Temp 231 mmHg (65-108) Arterial Blood HCO3 24 mmol/L (21-28) Arterial Blood Base Excess 0 mmol/L (-3-3) FiO2 60 Laboratory Tests Test 01/12/20 12:00 01/12/20 12:45 01/12/20 15:00 01/12/20 16:55 White Blood Count 7.1 x10^3/uL (4.0-11.0) Red Blood Count 4.85 x10^6/uL (4.30-5.70) Hemoglobin 15.1 g/dL (13.0-17.5) Hematocrit 46.9 % (39.0-53.0) Mean Corpuscular Volume 97 fL (79-100) Mean Corpuscular Hemoglobin 31 pg (25-35) Mean Corpuscular Hemoglobin Concent 32 g/dL (31-37) Red Cell Distribution Width 13.5 % (11.5-14.5) Platelet Count 278 x10^3/uL (140-400) Neutrophils (%) (Auto) 26 % (31-73) Lymphocytes (%) (Auto) 66 % (24-48) Monocytes (%) (Auto) 4 % (0-9) Eosinophils (%) (Auto) 3 % (0-3) Basophils (%) (Auto) 1 % (0-3) Neutrophils # (Auto) 1.9 x10^3/uL (1.8-7.7) Lymphocytes # (Auto) 4.7 x10^3/uL (1.0-4.8) Monocytes # (Auto) 0.3 x10^3/uL (0.0-1.1) Eosinophils # (Auto) 0.2 x10^3/uL (0.0-0.7) Basophils # (Auto) 0.0 x10^3/uL (0.0-0.2) Prothrombin Time 14.6 SEC (11.7-14.0) Prothromb Time International Ratio 1.2 (0.8-1.1) Activated Partial Thromboplast Time 33 SEC (24-38) Sodium Level 142 mmol/L (136-145) Potassium Level 2.7 mmol/L (3.5-5.1) 3.1 mmol/L (3.5-5.1) Chloride Level 102 mmol/L (98-107) Carbon Dioxide Level 19 mmol/L (21-32) Anion Gap 21 (6-14) Blood Urea Nitrogen 18 mg/dL (8-26) Creatinine 1.4 mg/dL (0.7-1.3) Estimated GFR (Cockcroft-Gault) 51.2 BUN/Creatinine Ratio 13 (6-20) Glucose Level 290 mg/dL (70-99) Calcium Level 8.9 mg/dL (8.5-10.1) Phosphorus Level 7.0 mg/dL (2.6-4.7) Magnesium Level 2.5 mg/dL (1.8-2.4) Total Bilirubin 0.5 mg/dL (0.2-1.0) Aspartate Amino Transf (AST/SGOT) 125 U/L (15-37) Alanine Aminotransferase (ALT/SGPT) 187 U/L (16-63) Alkaline Phosphatase 70 U/L (46-116) Creatine Kinase 152 U/L (39-308) Troponin I Quantitative < 0.017 ng/mL (0.000-0.055) LA-Hcq-F-Type Natriuretic Peptide 159 pg/mL (0-124) Total Protein 6.3 g/dL (6.4-8.2) Albumin 3.3 g/dL (3.4-5.0) Albumin/Globulin Ratio 1.1 (1.0-1.7) Triglycerides Level 83 mg/dL (0-150) Ethyl Alcohol Level < 10 mg/dL (0-10) O2 Saturation 99 % (92-99) 97 % (92-99) Arterial Blood pH 7.03 (7.35-7.45) 7.34 (7.35-7.45) Arterial Blood pCO2 at Patient Temp 50 mmHg (35-46) 37 mmHg (35-46) Arterial Blood pO2 at Patient Temp 258 mmHg (65-108) 105 mmHg (65-108) Arterial Blood HCO3 13 mmol/L (21-28) 19 mmol/L (21-28) Arterial Blood Base Excess -18 mmol/L (-3-3) -6 mmol/L (-3-3) FiO2 100 vent 60% Test 01/13/20 06:10 01/13/20 07:32 White Blood Count 21.9 x10^3/uL (4.0-11.0) Red Blood Count 5.20 x10^6/uL (4.30-5.70) Hemoglobin 15.9 g/dL (13.0-17.5) Hematocrit 47.6 % (39.0-53.0) Mean Corpuscular Volume 92 fL (79-100) Mean Corpuscular Hemoglobin 31 pg (25-35) Mean Corpuscular Hemoglobin Concent 33 g/dL (31-37) Red Cell Distribution Width 13.0 % (11.5-14.5) Platelet Count 325 x10^3/uL (140-400) Neutrophils (%) (Auto) 87 % (31-73) Lymphocytes (%) (Auto) 7 % (24-48) Monocytes (%) (Auto) 6 % (0-9) Eosinophils (%) (Auto) 0 % (0-3) Basophils (%) (Auto) 0 % (0-3) Neutrophils # (Auto) 19.0 x10^3/uL (1.8-7.7) Lymphocytes # (Auto) 1.4 x10^3/uL (1.0-4.8) Monocytes # (Auto) 1.4 x10^3/uL (0.0-1.1) Eosinophils # (Auto) 0.0 x10^3/uL (0.0-0.7) Basophils # (Auto) 0.0 x10^3/uL (0.0-0.2) Segmented Neutrophils % 63 % (35-66) Band Neutrophils % 23 % (0-9) Lymphocytes % 6 % (24-48) Monocytes % 8 % (0-10) Platelet Estimate Adequate (ADEQUATE) Sodium Level 140 mmol/L (136-145) Potassium Level 3.7 mmol/L (3.5-5.1) Chloride Level 106 mmol/L (98-107) Carbon Dioxide Level 22 mmol/L (21-32) Anion Gap 12 (6-14) Blood Urea Nitrogen 31 mg/dL (8-26) Creatinine 1.3 mg/dL (0.7-1.3) Estimated GFR (Cockcroft-Gault) 55.8 Glucose Level 170 mg/dL (70-99) Calcium Level 8.3 mg/dL (8.5-10.1) Magnesium Level 1.5 mg/dL (1.8-2.4) O2 Saturation 99 % (92-99) Arterial Blood pH 7.45 (7.35-7.45) Arterial Blood pCO2 at Patient Temp 35 mmHg (35-46) Arterial Blood pO2 at Patient Temp 231 mmHg (65-108) Arterial Blood HCO3 24 mmol/L (21-28) Arterial Blood Base Excess 0 mmol/L (-3-3) FiO2 60 Medications Current Medications Heparin Sodium/ Sodium Chloride 0 ml @ As Directed STK-MED ONCE .ROUTE ; Start 01/12/20 at 12:25; Stop 01/12/20 at 12:25; Status DC Fentanyl Citrate (Fentanyl 2ml Vial) 100 mcg STK-MED ONCE .ROUTE ; Start 01/12/20 at 12:26; Stop 01/12/20 at 12:26; Status DC Midazolam HCl (Versed) 2 mg STK-MED ONCE .ROUTE ; Start 01/12/20 at 12:26; Stop 01/12/20 at 12:26; Status DC Iodixanol (Visipaque 320) 100 ml STK-MED ONCE .ROUTE ; Start 01/12/20 at 12:26; Stop 01/12/20 at 12:26; Status DC Lidocaine HCl (Lidocaine 1% 20ml Vial) 20 ml STK-MED ONCE .ROUTE ; Start 01/12/20 at 12:26; Stop 01/12/20 at 12:27; Status DC Amiodarone HCl 450 mg/Dextrose 259 ml @ 0 mls/hr CONT PRN IV SEE I/O RECORD; Start 01/12/20 at 12:45; Status UNV Amiodarone HCl 450 mg/Dextrose 259 ml @ 33 mls/hr CONT PRN IV SEE I/O RECORD Last administered on 01/13/20at 03:07; Start 01/12/20 at 12:45; Stop 01/13/20 at 03:07; Status DC Fentanyl Citrate (Fentanyl 2ml Vial) 100 mcg 1X ONCE IV Last administered on 01/12/20at 12:54; Start 01/12/20 at 13:00; Stop 01/12/20 at 13:01; Status DC Midazolam HCl (Versed) 2 mg 1X ONCE IV Last administered on 01/12/20at 12:54; Start 01/12/20 at 13:00; Stop 01/12/20 at 13:01; Status DC Magnesium Sulfate/ Dextrose 100 ml @ 100 mls/hr 1X ONCE IV ; Start 01/12/20 at 13:00; Stop 01/12/20 at 13:59; Status DC Buspirone HCl (Buspar) 30 mg Q8H NG ; Start 01/12/20 at 13:00; Stop 01/12/20 at 17:03; Status DC Acetaminophen (Tylenol) 650 mg Q4H NG ; Start 01/12/20 at 13:00; Stop 01/12/20 at 21:13; Status DC Acetaminophen (Tylenol Supp) 650 mg PRN Q4HRS PRN FL IF NO NG DOSE GIVEN; Start 01/12/20 at 12:45 Artificial Tears (Artificial Tears) 1 drop Q6HRS OU ; Start 01/12/20 at 18:00; Stop 01/12/20 at 21:13; Status DC Artificial Tears (Artificial Tears) 1 drop PRN Q15MIN PRN OU DRY EYE; Start 01/12/20 at 12:45 Heparin Sodium (Porcine) (Heparin Sodium) 5,000 unit BID SQ Last administered on 01/12/20at 21:19; Start 01/12/20 at 21:00 Pantoprazole Sodium (PROTONIX VIAL for IV PUSH) 40 mg DAILY IVP ; Start 01/13/20 at 09:00; Stop 01/12/20 at 17:03; Status DC Fentanyl Citrate 30 ml @ 0 mls/hr CONT PRN IV PER PROTOCOL.; Start 01/12/20 at 12:45 Propofol 100 ml @ 0 mls/hr CONT PRN IV PER PROTOCOL.; Start 01/12/20 at 12:45 Midazolam HCl 100 ml @ 0 mls/hr CONT PRN IV PER PROTOCOL. Last administered on 01/12/20at 13:32; Start 01/12/20 at 12:45 Vecuronium Davin (Norcuron Bolus) 10 mg PRN Q1HR PRN IV SHIVERING; Start 01/12/20 at 12:45 Fentanyl Citrate 30 ml @ 0 mls/hr CONT PRN IV SEE PROTOCOL; Start 01/12/20 at 13:00; Status UNV Fentanyl Citrate (Fentanyl 2ml Vial) 25 mcg PRN Q1HR PRN IV SEE COMMENTS; Start 01/12/20 at 13:00 Fentanyl Citrate (Fentanyl 2ml Vial) 50 mcg PRN Q1HR PRN IV SEE COMMENTS Last administered on 01/13/20at 06:06; Start 01/12/20 at 13:00 Chlorhexidine Gluconate (Peridex) 15 ml BID MM ; Start 01/12/20 at 21:00; Stop 01/12/20 at 17:03; Status DC Midazolam HCl 100 ml @ 0 mls/hr CONT PRN IV SEE PROTOCOL; Start 01/12/20 at 13:00; Status UNV Potassium Chloride/Water 100 ml @ 50 mls/hr 1X ONCE IV Last administered on 01/12/20at 14:00; Start 01/12/20 at 14:00; Stop 01/12/20 at 15:59; Status DC Dopamine HCl/ Dextrose 250 ml @ 17.944 mls/ hr CONT PRN PRN IV SEE PROTOCOL; Start 01/12/20 at 16:49 Famotidine (Pepcid Vial) 20 mg BID IVP Last administered on 01/13/20at 08:39; Start 01/12/20 at 21:00 Potassium Chloride/Water 100 ml @ 100 mls/hr Q1H IV Last administered on 01/12/20at 20:26; Start 01/12/20 at 17:30; Stop 01/12/20 at 19:29; Status DC Sodium Chloride 1,000 ml @ 100 mls/hr Q10H IV Last administered on 01/13/20at 04:17; Start 01/12/20 at 18:30 Acetaminophen (Tylenol) 650 mg PRN Q6HRS PRN PEG MILD PAIN / TEMP > 100.3'F Last administered on 01/13/20at 04:16; Start 01/13/20 at 04:15 Magnesium Sulfate/ Dextrose 100 ml @ 100 mls/hr 1X ONCE IV Last administered on 01/13/20at 07:59; Start 01/13/20 at 08:00; Stop 01/13/20 at 08:59; Status DC Nicardipine HCl 50 mg/Sodium Chloride 250 ml @ 25 mls/hr CONT PRN IV SEE I/O RECORD Last administered on 01/13/20at 09:57; Start 01/13/20 at 09:00 Active Scripts Active Reported Vitamin D3 Complete Caplet (Mv-Mn/Iron/Fa/Herbal Cmplx#190) 1 Each Tablet 1 Each PO BID Metformin Hcl 1,000 Mg Tablet 1,000 Mg PO BIDWMEALS Adult Low Dose Aspirin Ec (Aspirin) 81 Mg Tablet.dr 81 Mg PO DAILY Metoprolol Tartrate 25 Mg Tablet 25 Mg PO BID Lisinopril 20 Mg Tablet 20 Mg PO DAILY Plavix (Clopidogrel Bisulfate) 75 Mg Tablet 75 Mg PO DAILY Atorvastatin Calcium 80 Mg Tablet 80 Mg PO DAILY Fish Oil 1,200 Mg Fish Oil (Fish Oil/Dha/Epa) 1 Each Capsule 2,400 Mg PO DAILY Vitals/I & O Vital Sign - Last 24 Hours 01/12/20 01/12/20 01/12/20 01/12/20 11:55 12:16 12:21 12:23 Temp 97.2 97.2 Pulse 80 93 107 119 Resp 10 22 22 22 B/P (MAP) 300/300 (300) 75/47 (56) 128/75 (92) 194/106 (135) Pulse Ox 89 92 100 96 O2 Delivery Bag Valve Mask Ventilator Ventilator Ventilator 01/12/20 01/12/20 01/12/20 01/12/20 12:25 12:27 12:29 12:31 Pulse 106 96 91 83 Resp B/P (MAP) 126/70 (88) 101/58 (72) 94/50 (65) 77/51 (60) Pulse Ox 98 96 97 98 O2 Delivery Ventilator Ventilator Ventilator Ventilator 01/12/20 01/12/20 01/12/20 01/12/20 12:33 12:35 12:37 12:39 Pulse 77 77 77 80 Resp B/P (MAP) 71/47 (55) 67/46 (53) 71/49 (56) 85/52 (63) Pulse Ox 96 98 98 97 O2 Delivery Ventilator Ventilator Ventilator Ventilator 01/12/20 01/12/20 01/12/20 01/12/20 12:41 12:43 12:45 12:45 Pulse 82 83 89 Resp B/P (MAP) 93/54 (67) 102/58 (73) 117/57 (77) Pulse Ox 94 98 98 100 O2 Delivery Ventilator Ventilator Ventilator Ventilator 01/12/20 01/12/20 01/12/20 01/12/20 12:47 12:49 12:51 12:53 Pulse 94 97 101 104 Resp B/P (MAP) 139/71 (93) 152/75 (100) 157/77 (103) 158/77 (104) Pulse Ox 99 100 100 100 O2 Delivery Ventilator Ventilator Ventilator Ventilator 01/12/20 01/12/20 01/12/20 01/12/20 12:55 12:55 12:57 12:59 Pulse 106 113 112 Resp B/P (MAP) 166/83 (110) 158/73 (101) 154/72 (99) Pulse Ox 100 99 99 99 O2 Delivery Ventilator Ventilator Ventilator Ventilator 01/12/20 01/12/20 01/12/20 01/12/20 13:01 13:03 13:05 13:07 Pulse 112 113 113 111 Resp B/P (MAP) 149/71 (97) 137/63 (87) 138/66 (90) 138/65 (89) Pulse Ox 99 100 100 99 O2 Delivery Ventilator Ventilator Ventilator Ventilator 01/12/20 01/12/20 01/12/20 01/12/20 13:09 13:15 13:17 13:19 Pulse 110 107 106 102 Resp B/P (MAP) 131/66 (87) 126/65 (85) 117/64 (81) 108/62 (77) Pulse Ox 100 100 99 99 O2 Delivery Ventilator Ventilator Ventilator Ventilator 01/12/20 01/12/20 01/12/20 01/12/20 13:21 13:23 13:25 16:00 Pulse 101 97 94 Resp B/P (MAP) 113/63 (80) 105/63 (77) 109/59 (76) Pulse Ox 99 100 100 O2 Delivery Ventilator Ventilator Ventilator Mechanical Ventilator 01/12/20 01/12/20 01/12/20 01/12/20 16:00 16:14 16:15 16:30 Temp 98.2 98.2 Pulse 88 76 84 Resp B/P (MAP) 116/70 (85) 125/81 (96) 119/81 (94) Pulse Ox 100 100 100 100 O2 Delivery Ventilator Ventilator Ventilator Ventilator 01/12/20 01/12/20 01/12/20 01/12/20 16:45 17:00 17:15 18:00 Pulse 74 76 70 68 Resp B/P (MAP) 132/88 (103) 125/81 (96) 131/81 (98) 133/79 (97) Pulse Ox 100 100 100 100 O2 Delivery Ventilator Ventilator Ventilator Ventilator 01/12/20 01/12/20 01/12/20 01/12/20 19:00 19:53 20:00 20:00 Temp 98.6 98.6 Pulse 69 66 B/P (MAP) 142/77 (98) 147/70 (95) Pulse Ox 100 100 100 O2 Delivery Ventilator Ventilator Mechanical Ventilator Ventilator 01/12/20 01/12/20 01/12/20 01/13/20 21:00 22:00 23:00 00:00 Pulse 66 75 94 Resp B/P (MAP) 148/74 (98) 161/74 (103) 154/75 (101) Pulse Ox 100 100 100 O2 Delivery Ventilator Ventilator Ventilator Mechanical Ventilator 01/13/20 01/13/20 01/13/20 01/13/20 00:00 00:00 01:00 01:39 Temp 99.8 99.8 Pulse 84 85 Resp B/P (MAP) 165/71 (102) 164/73 (103) Pulse Ox 100 99 99 100 O2 Delivery Ventilator Ventilator Ventilator Ventilator 01/13/20 01/13/20 01/13/20 01/13/20 02:00 03:00 03:07 04:00 Temp 101.1 101.1 Pulse 98 100 105 Resp B/P (MAP) 168/81 (110) 159/72 (101) 175/75 (108) Pulse Ox 100 100 99 99 O2 Delivery Ventilator Ventilator Ventilator Ventilator 01/13/20 01/13/20 01/13/20 01/13/20 04:00 04:04 04:10 05:00 Pulse 112 Resp B/P (MAP) 165/68 (100) Pulse Ox 100 99 99 O2 Delivery Mechanical Ventilator Ventilator Ventilator Ventilator 01/13/20 01/13/20 01/13/20 01/13/20 05:57 06:00 06:06 06:44 Temp 101.7 101.7 Pulse 105 Resp B/P (MAP) 166/72 (103) Pulse Ox 100 99 99 100 O2 Delivery Ventilator Ventilator Ventilator Ventilator 01/13/20 01/13/20 07:23 07:45 Pulse Ox 99 97 O2 Delivery Ventilator Ventilator Intake and Output 01/12/20 01/12/20 01/13/20 15:00 23:00 07:00 Intake Total 200 ml 1521.4 ml Output Total 390 ml 490 ml Balance -190 ml 1031.4 ml CHRIS MURRELL MD January 13, 2020 11:11
[2020-01-13] MEDS ORDERED: DEXTROSE 50% 25 GM / 50ML DISP.SYRIN. IV PRN (13:15)
[2020-01-13] MEDS: INSULIN LISPRO 300 UNITS/3 ML VIAL. SQ SCH ×3 (13:15→23:44)
--- NOTE | 2020-01-13 14:48 | PDOC2 ---
NEUROLOGY CONSULT Date of Admission Date of Admission DATE: 01/13/20 TIME: 14:41 Reason for Consult Reason for Consult: Postcode Referring Physician Referring Physician: Dr. Chan Source Source: Chart review History of Present Illness History of Present Illness The patient is a 64-year-old male who was arguing with his neighbor, clutched his chest, and collapsed. He was found down by his family. There was 5 or 10 minutes downtime before he was found, paramedics were called and patient was found to be in ventricular tachycardia. CPR time was 15 minutes until stable rhythm established. In the emergency department he had further episodes of ventricular tachycardia and ventricular fibrillation, coded for 25-30 minutes, then resume sinus rhythm. He is on amiodarone and pressors. He is intubated. He is on fentanyl and midazolam. Past Medical History Cardiovascular: CAD, HTN GI: Peptic Ulcer disease Renal/: Benign prostatic enlarg. Endocrine: Diabetes Past Surgical History Past Surgical History: Appendectomy, Other (Coronary stent) Family History Family History: No pertinent hx Social History Social History Quit smoking 14 years ago Current Medications Current Medications Current Medications Heparin Sodium/ Sodium Chloride 0 ml @ As Directed STK-MED ONCE .ROUTE ; Start 01/12/20 at 12:25; Stop 01/12/20 at 12:25; Status DC Fentanyl Citrate (Fentanyl 2ml Vial) 100 mcg STK-MED ONCE .ROUTE ; Start 01/12/20 at 12:26; Stop 01/12/20 at 12:26; Status DC Midazolam HCl (Versed) 2 mg STK-MED ONCE .ROUTE ; Start 01/12/20 at 12:26; Stop 01/12/20 at 12:26; Status DC Iodixanol (Visipaque 320) 100 ml STK-MED ONCE .ROUTE ; Start 01/12/20 at 12:26; Stop 01/12/20 at 12:26; Status DC Lidocaine HCl (Lidocaine 1% 20ml Vial) 20 ml STK-MED ONCE .ROUTE ; Start 01/12/20 at 12:26; Stop 01/12/20 at 12:27; Status DC Amiodarone HCl 450 mg/Dextrose 259 ml @ 0 mls/hr CONT PRN IV SEE I/O RECORD; Start 01/12/20 at 12:45; Status UNV Amiodarone HCl 450 mg/Dextrose 259 ml @ 33 mls/hr CONT PRN IV SEE I/O RECORD Last administered on 01/13/20at 03:07; Start 01/12/20 at 12:45; Stop 01/13/20 at 03:07; Status DC Fentanyl Citrate (Fentanyl 2ml Vial) 100 mcg 1X ONCE IV Last administered on 01/12/20at 12:54; Start 01/12/20 at 13:00; Stop 01/12/20 at 13:01; Status DC Midazolam HCl (Versed) 2 mg 1X ONCE IV Last administered on 01/12/20at 12:54; Start 01/12/20 at 13:00; Stop 01/12/20 at 13:01; Status DC Magnesium Sulfate/ Dextrose 100 ml @ 100 mls/hr 1X ONCE IV ; Start 01/12/20 at 13:00; Stop 01/12/20 at 13:59; Status DC Buspirone HCl (Buspar) 30 mg Q8H NG ; Start 01/12/20 at 13:00; Stop 01/12/20 at 17:03; Status DC Acetaminophen (Tylenol) 650 mg Q4H NG ; Start 01/12/20 at 13:00; Stop 01/12/20 at 21:13; Status DC Acetaminophen (Tylenol Supp) 650 mg PRN Q4HRS PRN ME IF NO NG DOSE GIVEN; Start 01/12/20 at 12:45 Artificial Tears (Artificial Tears) 1 drop Q6HRS OU ; Start 01/12/20 at 18:00; Stop 01/12/20 at 21:13; Status DC Artificial Tears (Artificial Tears) 1 drop PRN Q15MIN PRN OU DRY EYE; Start 01/12/20 at 12:45 Heparin Sodium (Porcine) (Heparin Sodium) 5,000 unit BID SQ Last administered on 01/12/20at 21:19; Start 01/12/20 at 21:00 Pantoprazole Sodium (PROTONIX VIAL for IV PUSH) 40 mg DAILY IVP ; Start 01/13/20 at 09:00; Stop 01/12/20 at 17:03; Status DC Fentanyl Citrate 30 ml @ 0 mls/hr CONT PRN IV PER PROTOCOL.; Start 01/12/20 at 12:45 Propofol 100 ml @ 0 mls/hr CONT PRN IV PER PROTOCOL.; Start 01/12/20 at 12:45 Midazolam HCl 100 ml @ 0 mls/hr CONT PRN IV PER PROTOCOL. Last administered on 01/12/20at 13:32; Start 01/12/20 at 12:45 Vecuronium [place] (Norcuron Bolus) 10 mg PRN Q1HR PRN IV SHIVERING; Start 01/12/20 at 12:45 Fentanyl Citrate 30 ml @ 0 mls/hr CONT PRN IV SEE PROTOCOL; Start 01/12/20 at 13:00; Status UNV Fentanyl Citrate (Fentanyl 2ml Vial) 25 mcg PRN Q1HR PRN IV SEE COMMENTS; Start 01/12/20 at 13:00 Fentanyl Citrate (Fentanyl 2ml Vial) 50 mcg PRN Q1HR PRN IV SEE COMMENTS Last administered on 01/13/20at 06:06; Start 01/12/20 at 13:00 Chlorhexidine Gluconate (Peridex) 15 ml BID MM ; Start 01/12/20 at 21:00; Stop 01/12/20 at 17:03; Status DC Midazolam HCl 100 ml @ 0 mls/hr CONT PRN IV SEE PROTOCOL; Start 01/12/20 at 13:00; Status UNV Potassium Chloride/Water 100 ml @ 50 mls/hr 1X ONCE IV Last administered on 01/12/20at 14:00; Start 01/12/20 at 14:00; Stop 01/12/20 at 15:59; Status DC Dopamine HCl/ Dextrose 250 ml @ 17.944 mls/ hr CONT PRN PRN IV SEE PROTOCOL; Start 01/12/20 at 16:49 Famotidine (Pepcid Vial) 20 mg BID IVP Last administered on 01/13/20at 08:39; Start 01/12/20 at 21:00 Potassium Chloride/Water 100 ml @ 100 mls/hr Q1H IV Last administered on 01/12/20at 20:26; Start 01/12/20 at 17:30; Stop 01/12/20 at 19:29; Status DC Sodium Chloride 1,000 ml @ 100 mls/hr Q10H IV Last administered on 01/13/20at 04:17; Start 01/12/20 at 18:30 Acetaminophen (Tylenol) 650 mg PRN Q6HRS PRN PEG MILD PAIN / TEMP > 100.3'F Last administered on 01/13/20at 04:16; Start 01/13/20 at 04:15 Magnesium Sulfate/ Dextrose 100 ml @ 100 mls/hr 1X ONCE IV Last administered on 01/13/20at 07:59; Start 01/13/20 at 08:00; Stop 01/13/20 at 08:59; Status DC Nicardipine HCl 50 mg/Sodium Chloride 250 ml @ 25 mls/hr CONT PRN IV SEE I/O RECORD Last administered on 01/13/20at 09:57; Start 01/13/20 at 09:00 Amiodarone HCl 450 mg/Dextrose 259 ml @ 17 mls/hr CONT PRN IV SEE I/O RECORD; Start 01/13/20 at 11:30 Insulin Human Lispro (HumaLOG) 0-7 UNITS Q6HRS SQ ; Start 01/13/20 at 13:15 Dextrose (Dextrose 50%-Water Syringe) 12.5 gm PRN Q15MIN PRN IV SEE COMMENTS; Start 01/13/20 at 13:15 Active Scripts Active Reported Vitamin D3 Complete Caplet (Mv-Mn/Iron/Fa/Herbal Cmplx#190) 1 Each Tablet 1 Each PO BID Metformin Hcl 1,000 Mg Tablet 1,000 Mg PO BIDWMEALS Adult Low Dose Aspirin Ec (Aspirin) 81 Mg Tablet.dr 81 Mg PO DAILY Metoprolol Tartrate 25 Mg Tablet 25 Mg PO BID Lisinopril 20 Mg Tablet 20 Mg PO DAILY Plavix (Clopidogrel Bisulfate) 75 Mg Tablet 75 Mg PO DAILY Atorvastatin Calcium 80 Mg Tablet 80 Mg PO DAILY Fish Oil 1,200 Mg Fish Oil (Fish Oil/Dha/Epa) 1 Each Capsule 2,400 Mg PO DAILY Allergies Allergies: Coded Allergies: Penicillins (Verified Allergy, Intermediate, Hives, 01/12/20) ROS Review of System Unobtainable Physical Exam Physical Examination General: Well-developed, well-nourished white male in no acute distress HEENT: Normocephalic andatraumatic. Tympanic membranes clear.Temporal arteriespulsatile and nontender.Fundoscopic exam unremarkable Neck: Supple without bruit, no meningismus Musculoskeletal: Stability:see neurologic. Gait exam:see neurologic. Tone:see neurologic.Strength:see neurologic. Neurological: Mental Status:orientation, memory, attention span/concentration, language, fund of knowledge: Intubated and sedated. Cranial Nerves:Pupils equal and reactive to light, extraocular movements areintact. He blinks his eyes semi- purposefully, but there is no reaction to visual threat and sometimes the eye blinking looks a little bit too rhythmic. All other cranial related problems are negative except as mentioned before.Reflexes:1+ and symmetric with silent plantar responses. Motor:Minimal withdrawal to pain. Coordination and gait:Not cooperative. Sensory:Not cooperative. Vitals VITALS Vital Signs Date Time Temp Pulse Resp B/P (MAP) Pulse Ox O2 Delivery O2 Flow Rate FiO2 01/13/20 14:00 133 26 149/78 (101) 98 Ventilator 01/13/20 12:00 100.1 100.1 Labs Labs Laboratory Tests Test 01/12/20 12:00 01/12/20 12:45 01/12/20 15:00 01/12/20 16:55 White Blood Count 7.1 x10^3/uL (4.0-11.0) Red Blood Count 4.85 x10^6/uL (4.30-5.70) Hemoglobin 15.1 g/dL (13.0-17.5) Hematocrit 46.9 % (39.0-53.0) Mean Corpuscular Volume 97 fL (79-100) Mean Corpuscular Hemoglobin 31 pg (25-35) Mean Corpuscular Hemoglobin Concent 32 g/dL (31-37) Red Cell Distribution Width 13.5 % (11.5-14.5) Platelet Count 278 x10^3/uL (140-400) Neutrophils (%) (Auto) 26 % (31-73) Lymphocytes (%) (Auto) 66 % (24-48) Monocytes (%) (Auto) 4 % (0-9) Eosinophils (%) (Auto) 3 % (0-3) Basophils (%) (Auto) 1 % (0-3) Neutrophils # (Auto) 1.9 x10^3/uL (1.8-7.7) Lymphocytes # (Auto) 4.7 x10^3/uL (1.0-4.8) Monocytes # (Auto) 0.3 x10^3/uL (0.0-1.1) Eosinophils # (Auto) 0.2 x10^3/uL (0.0-0.7) Basophils # (Auto) 0.0 x10^3/uL (0.0-0.2) Prothrombin Time 14.6 SEC (11.7-14.0) Prothromb Time International Ratio 1.2 (0.8-1.1) Activated Partial Thromboplast Time 33 SEC (24-38) Sodium Level 142 mmol/L (136-145) Potassium Level 2.7 mmol/L (3.5-5.1) 3.1 mmol/L (3.5-5.1) Chloride Level 102 mmol/L (98-107) Carbon Dioxide Level 19 mmol/L (21-32) Anion Gap 21 (6-14) Blood Urea Nitrogen 18 mg/dL (8-26) Creatinine 1.4 mg/dL (0.7-1.3) Estimated GFR (Cockcroft-Gault) 51.2 BUN/Creatinine Ratio 13 (6-20) Glucose Level 290 mg/dL (70-99) Calcium Level 8.9 mg/dL (8.5-10.1) Phosphorus Level 7.0 mg/dL (2.6-4.7) Magnesium Level 2.5 mg/dL (1.8-2.4) Total Bilirubin 0.5 mg/dL (0.2-1.0) Aspartate Amino Transf (AST/SGOT) 125 U/L (15-37) Alanine Aminotransferase (ALT/SGPT) 187 U/L (16-63) Alkaline Phosphatase 70 U/L (46-116) Creatine Kinase 152 U/L (39-308) Troponin I Quantitative < 0.017 ng/mL (0.000-0.055) HB-Zzy-D-Type Natriuretic Peptide 159 pg/mL (0-124) Total Protein 6.3 g/dL (6.4-8.2) Albumin 3.3 g/dL (3.4-5.0) Albumin/Globulin Ratio 1.1 (1.0-1.7) Triglycerides Level 83 mg/dL (0-150) Ethyl Alcohol Level < 10 mg/dL (0-10) O2 Saturation 99 % (92-99) 97 % (92-99) Arterial Blood pH 7.03 (7.35-7.45) 7.34 (7.35-7.45) Arterial Blood pCO2 at Patient Temp 50 mmHg (35-46) 37 mmHg (35-46) Arterial Blood pO2 at Patient Temp 258 mmHg (65-108) 105 mmHg (65-108) Arterial Blood HCO3 13 mmol/L (21-28) 19 mmol/L (21-28) Arterial Blood Base Excess -18 mmol/L (-3-3) -6 mmol/L (-3-3) FiO2 100 vent 60% Test 01/13/20 06:10 01/13/20 07:32 01/13/20 11:40 White Blood Count 21.9 x10^3/uL (4.0-11.0) Red Blood Count 5.20 x10^6/uL (4.30-5.70) Hemoglobin 15.9 g/dL (13.0-17.5) Hematocrit 47.6 % (39.0-53.0) Mean Corpuscular Volume 92 fL (79-100) Mean Corpuscular Hemoglobin 31 pg (25-35) Mean Corpuscular Hemoglobin Concent 33 g/dL (31-37) Red Cell Distribution Width 13.0 % (11.5-14.5) Platelet Count 325 x10^3/uL (140-400) Neutrophils (%) (Auto) 87 % (31-73) Lymphocytes (%) (Auto) 7 % (24-48) Monocytes (%) (Auto) 6 % (0-9) Eosinophils (%) (Auto) 0 % (0-3) Basophils (%) (Auto) 0 % (0-3) Neutrophils # (Auto) 19.0 x10^3/uL (1.8-7.7) Lymphocytes # (Auto) 1.4 x10^3/uL (1.0-4.8) Monocytes # (Auto) 1.4 x10^3/uL (0.0-1.1) Eosinophils # (Auto) 0.0 x10^3/uL (0.0-0.7) Basophils # (Auto) 0.0 x10^3/uL (0.0-0.2) Segmented Neutrophils % 63 % (35-66) Band Neutrophils % 23 % (0-9) Lymphocytes % 6 % (24-48) Monocytes % 8 % (0-10) Platelet Estimate Adequate (ADEQUATE) Sodium Level 140 mmol/L (136-145) Potassium Level 3.7 mmol/L (3.5-5.1) Chloride Level 106 mmol/L (98-107) Carbon Dioxide Level 22 mmol/L (21-32) Anion Gap 12 (6-14) Blood Urea Nitrogen 31 mg/dL (8-26) Creatinine 1.3 mg/dL (0.7-1.3) Estimated GFR (Cockcroft-Gault) 55.8 Glucose Level 170 mg/dL (70-99) Calcium Level 8.3 mg/dL (8.5-10.1) Magnesium Level 1.5 mg/dL (1.8-2.4) O2 Saturation 99 % (92-99) Arterial Blood pH 7.45 (7.35-7.45) Arterial Blood pCO2 at Patient Temp 35 mmHg (35-46) Arterial Blood pO2 at Patient Temp 231 mmHg (65-108) Arterial Blood HCO3 24 mmol/L (21-28) Arterial Blood Base Excess 0 mmol/L (-3-3) FiO2 60 Troponin I Quantitative 7.581 ng/mL (0.000-0.055) Laboratory Tests Test 01/12/20 15:00 01/12/20 16:55 01/13/20 06:10 01/13/20 07:32 O2 Saturation 97 % (92-99) 99 % (92-99) Arterial Blood pH 7.34 (7.35-7.45) 7.45 (7.35-7.45) Arterial Blood pCO2 at Patient Temp 37 mmHg (35-46) 35 mmHg (35-46) Arterial Blood pO2 at Patient Temp 105 mmHg (65-108) 231 mmHg (65-108) Arterial Blood HCO3 19 mmol/L (21-28) 24 mmol/L (21-28) Arterial Blood Base Excess -6 mmol/L (-3-3) 0 mmol/L (-3-3) FiO2 60% 60 Potassium Level 3.1 mmol/L (3.5-5.1) 3.7 mmol/L (3.5-5.1) White Blood Count 21.9 x10^3/uL (4.0-11.0) Red Blood Count 5.20 x10^6/uL (4.30-5.70) Hemoglobin 15.9 g/dL (13.0-17.5) Hematocrit 47.6 % (39.0-53.0) Mean Corpuscular Volume 92 fL (79-100) Mean Corpuscular Hemoglobin 31 pg (25-35) Mean Corpuscular Hemoglobin Concent 33 g/dL (31-37) Red Cell Distribution Width 13.0 % (11.5-14.5) Platelet Count 325 x10^3/uL (140-400) Neutrophils (%) (Auto) 87 % (31-73) Lymphocytes (%) (Auto) 7 % (24-48) Monocytes (%) (Auto) 6 % (0-9) Eosinophils (%) (Auto) 0 % (0-3) Basophils (%) (Auto) 0 % (0-3) Neutrophils # (Auto) 19.0 x10^3/uL (1.8-7.7) Lymphocytes # (Auto) 1.4 x10^3/uL (1.0-4.8) Monocytes # (Auto) 1.4 x10^3/uL (0.0-1.1) Eosinophils # (Auto) 0.0 x10^3/uL (0.0-0.7) Basophils # (Auto) 0.0 x10^3/uL (0.0-0.2) Segmented Neutrophils % 63 % (35-66) Band Neutrophils % 23 % (0-9) Lymphocytes % 6 % (24-48) Monocytes % 8 % (0-10) Platelet Estimate Adequate (ADEQUATE) Sodium Level 140 mmol/L (136-145) Chloride Level 106 mmol/L (98-107) Carbon Dioxide Level 22 mmol/L (21-32) Anion Gap 12 (6-14) Blood Urea Nitrogen 31 mg/dL (8-26) Creatinine 1.3 mg/dL (0.7-1.3) Estimated GFR (Cockcroft-Gault) 55.8 Glucose Level 170 mg/dL (70-99) Calcium Level 8.3 mg/dL (8.5-10.1) Magnesium Level 1.5 mg/dL (1.8-2.4) Test 01/13/20 11:40 Troponin I Quantitative 7.581 ng/mL (0.000-0.055) Images Images CT HEAD WO CONTRAST No acute intracranial hemorrhage or midline shift or mass-effect or hydrocephalus or extra-axial fluid collection is seen. There is ill-defined hypodensity involving the upper convexity aspect of the posterior right parietal lobe. This could be ischemic in nature. No skull fracture or pneumocephalus is seen. No opacification of the mastoid sinuses or the middle ear cavities or the paranasal sinuses is seen. The maxillary sinuses are not completely seen in this study. Calcifications of the retina are seen bilaterally. IMPRESSION: No acute intracranial hemorrhage is seen. Ill-defined hypodensity involving the upper convexity aspect of the posterior right parietal lobe which may be ischemic in nature. This could be due to acute or subacute infarct. Assessment/Plan Assessment/Plan Impression: Anoxic encephalopathy, status-post V. tach cardiac arrest, hypothermia protocol was not used. Possible posterior right parietal lobe acute or subacute infarct, I am not impressed with the findings. He could have had an infarct during the r esuscitations. Recommendations: Continue supportive care Okay for heparin regarding cardiac issues I will consider brain MRI Electroencephalogram tomorrow Prognosis is guarded. Thank you for letting me help with the patient's care. JONATHAN ADAMES MD January 13, 2020 14:48
[2020-01-13] MEDS ORDERED: AMIODARONE 450 MG in IV DEXTROSE 5% 250 ML IV SCH (15:45)
[2020-01-13] MEDS: HEPARIN for IV BOLUS 10,000 UNIT/10 ML VIAL. IV PRN (15:58)
[2020-01-13] MEDS: HEPARIN 25,000UTS/250ML PREMIX 250 ML IV PRN (16:00)
[2020-01-13] MEDS: ACETAMINOPHEN 650 MG SUPP.RECT. PR PRN (16:51)
[2020-01-14] VITALS (24 sets, daily range): BP systolic 106–152; BP diastolic 58–81
[2020-01-14] MEDS: ACETAMINOPHEN 650 MG SUPP.RECT. PR PRN ×2 (00:22→09:07)
[2020-01-14] MEDS: IV NORMAL SALINE 1000ML BAG 1,000 ML IV SCH ×3 (00:30→20:54)
[2020-01-14 00:42] LABS: BILIRUBIN,URINE NEGATIVE (NEG); CLARITY,URINE CLEAR; COLOR,URINE YELLOW; NITRITE,URINE NEGATIVE (NEG); PH,URINE 6.5 (<5.0-8.0); PROTEIN,URINE 30 mg/dL (NEG-TRACE)
[2020-01-14 00:48] LABS: BARBITURATES NEG (NEG); BENZODIAZEPINES POS (NEG); CANNABINOIDS NEG (NEG); COCAINE NEG (NEG); METHADONE NEG (NEG); OPIATES NEG (NEG); PHENCYCLIDINE NEG (NEG)
[2020-01-14 00:55] LABS: AMPHETAMINE/METHAMPHETAMINE NEG (NEG)
[2020-01-14 01:02] LABS: BACTERIA,URINE 0 /HPF (0-FEW); RBC,URINE OCC /HPF (0-2)
[2020-01-14 01:04] LABS: GRANULAR CASTS,URINE MODERATE /HPF; HYALINE CASTS, URINE FEW /HPF; WAXY CASTS,URINE OCCASIONAL /HPF
[2020-01-14] MEDS: INSULIN LISPRO 300 UNITS/3 ML VIAL. SQ SCH ×3 (06:00→18:00)
[2020-01-14] MEDS: AMIODARONE 450 MG in IV DEXTROSE 5% 250 ML IV PRN ×2 (06:13→21:32)
[2020-01-14 06:38] LABS: BASO # 0.1 x10^3/uL (0.0-0.2); BASO % 0 % (0-3); EOS % 0 % (0-3); HEMATOCRIT 45.7 % (39.0-53.0); HEMOGLOBIN 15.2 g/dL (13.0-17.5); LYMPH # 2.4 x10^3/uL (1.0-4.8); LYMPH % 10 % (24-48); MEAN CORPUSCULAR HEMOGLOBIN 31 pg (25-35); MEAN CORPUSCULAR HGB CONC 33 g/dL (31-37); MEAN CORPUSCULAR VOLUME 92 fL (79-100); MONO # 1.6 x10^3/uL (0.0-1.1); MONO % 7 % (0-9); NEUT # 18.7 x10^3/uL (1.8-7.7); NEUT % 82 % (31-73); PLATELET COUNT 296 x10^3/uL (140-400); RED BLOOD COUNT 4.95 x10^6/uL (4.30-5.70); RED CELL DISTRIBUTION WIDTH 13.6 % (11.5-14.5); WHITE BLOOD COUNT 22.7 x10^3/uL (4.0-11.0)
[2020-01-14 06:44] LABS: ALBUMIN 2.9 g/dL (3.4-5.0); ALBUMIN/GLOBULIN RATIO 0.8 (1.0-1.7); CALCIUM 8.4 mg/dL (8.5-10.1); CREATININE 0.9 mg/dL (0.7-1.3); GFR 85.2; POTASSIUM 3.7 mmol/L (3.5-5.1); TOTAL BILIRUBIN 0.8 mg/dL (0.2-1.0); TOTAL PROTEIN 6.4 g/dL (6.4-8.2)
[2020-01-14] MEDS: HEPARIN for IV BOLUS 10,000 UNIT/10 ML VIAL. IV PRN (07:56)
--- NOTE | 2020-01-14 08:27 | EKG ---
[facility] [address] [place] [address] Test Date: 2020-01-12 Test Time: 11:59:05 Pat Name: BALDO GILL Department: Room: 269 1 Gender: M Facility Coordinator: : 1955 Requested By: KHURRAM MOSER Order Number: [id number] Reading MD: Alban Millard Measurements Intervals [place] Rate: 40 P: MD: QRS: 75 QRSD: 138 T: -2 QT: 616 QTc: 505 Interpretive Statements ATRIAL FIBRILLATION WITH SLOW VENTRICULAR RESPONSE CONSIDER SICK SINUS SYNDROME NON SPECIFIC INTRAVENTRICULAR BLOCK QRS(T) CONTOUR ABNORMALITY CONSIDER ANTEROLATERAL MYOCARDIAL DAMAGE ABNORMAL ECG RI6.01 No previous ECG available for comparison Electronically Signed On 01-14-2020 8:48:49 CDT by Alban Millard
[2020-01-14 08:50] LABS: BASE EXCESS ABG 2 mmol/L (-3-3); HCO3 ABG 23 mmol/L (21-28); PCO2 ABG 26 mmHg (35-46); PO2 ABG 77 mmHg (65-108); SAT O2 ABG 96 % (92-99)
[2020-01-14 08:52] LABS: CORRECTED PCO2 ABG 29 mmHg; CORRECTED PH ABG 7.52; CORRECTED PO2 ABG 89 mmHg
--- NOTE | 2020-01-14 08:54 | EKG ---
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
[2020-01-14 08:55] LABS: FIO2 ABG 40
--- NOTE | 2020-01-14 08:55 | EKG ---
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
--- NOTE | 2020-01-14 09:02 | PDOC ---
PULMONARY PROGRESS NOTES Subjective Remains on vent at 60% PEEP of 5. not on sedation ,not responsive nursing reports no overnight concerns trigers vent/ positive gag Vitals Vital Signs Date Time Temp Pulse Resp B/P (MAP) Pulse Ox O2 Delivery O2 Flow Rate FiO2 01/14/20 08:23 Mechanical Ventilator 01/14/20 08:15 98 01/14/20 08:14 95 29 118/69 (85) 01/14/20 07:00 102.4 102.4 Comments intubated AC mode Lungs: Clear Cardiovascular: S1 Abdomen: Soft Extremities: Other (trace edema) Impression Upward Gaze, doesn't follow commands/ not on sedation Labs Laboratory Tests Test 01/12/20 12:00 01/12/20 12:45 01/12/20 15:00 01/12/20 16:55 White Blood Count 7.1 x10^3/uL (4.0-11.0) Red Blood Count 4.85 x10^6/uL (4.30-5.70) Hemoglobin 15.1 g/dL (13.0-17.5) Hematocrit 46.9 % (39.0-53.0) Mean Corpuscular Volume 97 fL (79-100) Mean Corpuscular Hemoglobin 31 pg (25-35) Mean Corpuscular Hemoglobin Concent 32 g/dL (31-37) Red Cell Distribution Width 13.5 % (11.5-14.5) Platelet Count 278 x10^3/uL (140-400) Neutrophils (%) (Auto) 26 % (31-73) Lymphocytes (%) (Auto) 66 % (24-48) Monocytes (%) (Auto) 4 % (0-9) Eosinophils (%) (Auto) 3 % (0-3) Basophils (%) (Auto) 1 % (0-3) Neutrophils # (Auto) 1.9 x10^3/uL (1.8-7.7) Lymphocytes # (Auto) 4.7 x10^3/uL (1.0-4.8) Monocytes # (Auto) 0.3 x10^3/uL (0.0-1.1) Eosinophils # (Auto) 0.2 x10^3/uL (0.0-0.7) Basophils # (Auto) 0.0 x10^3/uL (0.0-0.2) Prothrombin Time 14.6 SEC (11.7-14.0) Prothromb Time International Ratio 1.2 (0.8-1.1) Activated Partial Thromboplast Time 33 SEC (24-38) Sodium Level 142 mmol/L (136-145) Potassium Level 2.7 mmol/L (3.5-5.1) 3.1 mmol/L (3.5-5.1) Chloride Level 102 mmol/L (98-107) Carbon Dioxide Level 19 mmol/L (21-32) Anion Gap 21 (6-14) Blood Urea Nitrogen 18 mg/dL (8-26) Creatinine 1.4 mg/dL (0.7-1.3) Estimated GFR (Cockcroft-Gault) 51.2 BUN/Creatinine Ratio 13 (6-20) Glucose Level 290 mg/dL (70-99) Calcium Level 8.9 mg/dL (8.5-10.1) Phosphorus Level 7.0 mg/dL (2.6-4.7) Magnesium Level 2.5 mg/dL (1.8-2.4) Total Bilirubin 0.5 mg/dL (0.2-1.0) Aspartate Amino Transf (AST/SGOT) 125 U/L (15-37) Alanine Aminotransferase (ALT/SGPT) 187 U/L (16-63) Alkaline Phosphatase 70 U/L (46-116) Creatine Kinase 152 U/L (39-308) Troponin I Quantitative < 0.017 ng/mL (0.000-0.055) AI-Fid-K-Type Natriuretic Peptide 159 pg/mL (0-124) Total Protein 6.3 g/dL (6.4-8.2) Albumin 3.3 g/dL (3.4-5.0) Albumin/Globulin Ratio 1.1 (1.0-1.7) Triglycerides Level 83 mg/dL (0-150) Ethyl Alcohol Level < 10 mg/dL (0-10) O2 Saturation 99 % (92-99) 97 % (92-99) Arterial Blood pH 7.03 (7.35-7.45) 7.34 (7.35-7.45) Arterial Blood pCO2 at Patient Temp 50 mmHg (35-46) 37 mmHg (35-46) Arterial Blood pO2 at Patient Temp 258 mmHg (65-108) 105 mmHg (65-108) Arterial Blood HCO3 13 mmol/L (21-28) 19 mmol/L (21-28) Arterial Blood Base Excess -18 mmol/L (-3-3) -6 mmol/L (-3-3) FiO2 100 vent 60% Test 01/13/20 06:10 01/13/20 07:32 01/13/20 11:40 01/13/20 18:29 White Blood Count 21.9 x10^3/uL (4.0-11.0) Red Blood Count 5.20 x10^6/uL (4.30-5.70) Hemoglobin 15.9 g/dL (13.0-17.5) Hematocrit 47.6 % (39.0-53.0) Mean Corpuscular Volume 92 fL (79-100) Mean Corpuscular Hemoglobin 31 pg (25-35) Mean Corpuscular Hemoglobin Concent 33 g/dL (31-37) Red Cell Distribution Width 13.0 % (11.5-14.5) Platelet Count 325 x10^3/uL (140-400) Neutrophils (%) (Auto) 87 % (31-73) Lymphocytes (%) (Auto) 7 % (24-48) Monocytes (%) (Auto) 6 % (0-9) Eosinophils (%) (Auto) 0 % (0-3) Basophils (%) (Auto) 0 % (0-3) Neutrophils # (Auto) 19.0 x10^3/uL (1.8-7.7) Lymphocytes # (Auto) 1.4 x10^3/uL (1.0-4.8) Monocytes # (Auto) 1.4 x10^3/uL (0.0-1.1) Eosinophils # (Auto) 0.0 x10^3/uL (0.0-0.7) Basophils # (Auto) 0.0 x10^3/uL (0.0-0.2) Segmented Neutrophils % 63 % (35-66) Band Neutrophils % 23 % (0-9) Lymphocytes % 6 % (24-48) Monocytes % 8 % (0-10) Platelet Estimate Adequate (ADEQUATE) Sodium Level 140 mmol/L (136-145) Potassium Level 3.7 mmol/L (3.5-5.1) Chloride Level 106 mmol/L (98-107) Carbon Dioxide Level 22 mmol/L (21-32) Anion Gap 12 (6-14) Blood Urea Nitrogen 31 mg/dL (8-26) Creatinine 1.3 mg/dL (0.7-1.3) Estimated GFR (Cockcroft-Gault) 55.8 Glucose Level 170 mg/dL (70-99) Calcium Level 8.3 mg/dL (8.5-10.1) Magnesium Level 1.5 mg/dL (1.8-2.4) O2 Saturation 99 % (92-99) Arterial Blood pH 7.45 (7.35-7.45) Arterial Blood pCO2 at Patient Temp 35 mmHg (35-46) Arterial Blood pO2 at Patient Temp 231 mmHg (65-108) Arterial Blood HCO3 24 mmol/L (21-28) Arterial Blood Base Excess 0 mmol/L (-3-3) FiO2 60 Troponin I Quantitative 7.581 ng/mL (0.000-0.055) Glucose (Fingerstick) 158 mg/dL (70-99) Test 01/13/20 23:44 01/14/20 00:15 01/14/20 06:10 01/14/20 06:11 Glucose (Fingerstick) 171 mg/dL (70-99) 145 mg/dL (70-99) Heparin Anti-Xa Act, Unfractionated 0.36 IU/mL (0.30-0.70) 0.19 IU/mL (0.30-0.70) Urine Collection Type Unknown Urine Color Yellow Urine Clarity Clear Urine pH 6.5 (<5.0-8.0) Urine Specific Arthur 1.020 (1.000-1.030) Urine Protein 30 mg/dL (NEG-TRACE) Urine Glucose (UA) Negative mg/dL (NEG) Urine Ketones (Stick) Trace mg/dL (NEG) Urine Blood Moderate (NEG) Urine Nitrite Negative (NEG) Urine Bilirubin Negative (NEG) Urine Urobilinogen Dipstick 1.0 mg/dL (0.2 mg/dL) Urine Leukocyte Esterase Negative (NEG) Urine RBC Occ /HPF (0-2) Urine WBC 1-4 /HPF (0-4) Urine Bacteria 0 /HPF (0-FEW) Urine Cellular Casts Occ /HPF Urine Hyaline Casts Few /HPF Urine Granular Casts Moderate /HPF Urine Waxy Casts Occasional /HPF Urine Mucus Mod /LPF Urine Opiates Screen Neg (NEG) Urine Methadone Screen Neg (NEG) Urine Barbiturates Neg (NEG) Urine Phencyclidine Screen Neg (NEG) Urine Amphetamine/Methamphetamine Neg (NEG) Urine Benzodiazepines Screen Pos (NEG) Urine Cocaine Screen Neg (NEG) Urine Cannabinoids Screen Neg (NEG) Urine Ethyl Alcohol Neg (NEG) White Blood Count 22.7 x10^3/uL (4.0-11.0) Red Blood Count 4.95 x10^6/uL (4.30-5.70) Hemoglobin 15.2 g/dL (13.0-17.5) Hematocrit 45.7 % (39.0-53.0) Mean Corpuscular Volume 92 fL (79-100) Mean Corpuscular Hemoglobin 31 pg (25-35) Mean Corpuscular Hemoglobin Concent 33 g/dL (31-37) Red Cell Distribution Width 13.6 % (11.5-14.5) Platelet Count 296 x10^3/uL (140-400) Neutrophils (%) (Auto) 82 % (31-73) Lymphocytes (%) (Auto) 10 % (24-48) Monocytes (%) (Auto) 7 % (0-9) Eosinophils (%) (Auto) 0 % (0-3) Basophils (%) (Auto) 0 % (0-3) Neutrophils # (Auto) 18.7 x10^3/uL (1.8-7.7) Lymphocytes # (Auto) 2.4 x10^3/uL (1.0-4.8) Monocytes # (Auto) 1.6 x10^3/uL (0.0-1.1) Eosinophils # (Auto) 0.0 x10^3/uL (0.0-0.7) Basophils # (Auto) 0.1 x10^3/uL (0.0-0.2) Sodium Level 139 mmol/L (136-145) Potassium Level 3.7 mmol/L (3.5-5.1) Chloride Level 105 mmol/L (98-107) Carbon Dioxide Level 23 mmol/L (21-32) Anion Gap 11 (6-14) Blood Urea Nitrogen 27 mg/dL (8-26) Creatinine 0.9 mg/dL (0.7-1.3) Estimated GFR (Cockcroft-Gault) 85.2 BUN/Creatinine Ratio 30 (6-20) Glucose Level 153 mg/dL (70-99) Calcium Level 8.4 mg/dL (8.5-10.1) Total Bilirubin 0.8 mg/dL (0.2-1.0) Aspartate Amino Transf (AST/SGOT) 143 U/L (15-37) Alanine Aminotransferase (ALT/SGPT) 196 U/L (16-63) Alkaline Phosphatase 67 U/L (46-116) Total Protein 6.4 g/dL (6.4-8.2) Albumin 2.9 g/dL (3.4-5.0) Albumin/Globulin Ratio 0.8 (1.0-1.7) Test 01/14/20 08:40 O2 Saturation 96 % (92-99) Arterial Blood pH 7.56 (7.35-7.45) Arterial Blood pH (Temp corrected) 7.52 Arterial Blood pCO2 at Patient Temp 26 mmHg (35-46) Arterial Blood pCO2 (Temp correct) 29 mmHg Arterial Blood pO2 at Patient Temp 77 mmHg (65-108) Arterial Blood pO2 (Temp corrected) 89 mmHg Arterial Blood HCO3 23 mmol/L (21-28) Arterial Blood Base Excess 2 mmol/L (-3-3) FiO2 40 Laboratory Tests Test 01/13/20 11:40 01/13/20 18:29 01/13/20 23:44 01/14/20 00:15 Troponin I Quantitative 7.581 ng/mL (0.000-0.055) Glucose (Fingerstick) 158 mg/dL (70-99) 171 mg/dL (70-99) Heparin Anti-Xa Act, Unfractionated 0.36 IU/mL (0.30-0.70) Urine Collection Type Unknown Urine Color Yellow Urine Clarity Clear Urine pH 6.5 (<5.0-8.0) Urine Specific Arthur 1.020 (1.000-1.030) Urine Protein 30 mg/dL (NEG-TRACE) Urine Glucose (UA) Negative mg/dL (NEG) Urine Ketones (Stick) Trace mg/dL (NEG) Urine Blood Moderate (NEG) Urine Nitrite Negative (NEG) Urine Bilirubin Negative (NEG) Urine Urobilinogen Dipstick 1.0 mg/dL (0.2 mg/dL) Urine Leukocyte Esterase Negative (NEG) Urine RBC Occ /HPF (0-2) Urine WBC 1-4 /HPF (0-4) Urine Bacteria 0 /HPF (0-FEW) Urine Cellular Casts Occ /HPF Urine Hyaline Casts Few /HPF Urine Granular Casts Moderate /HPF Urine Waxy Casts Occasional /HPF Urine Mucus Mod /LPF Urine Opiates Screen Neg (NEG) Urine Methadone Screen Neg (NEG) Urine Barbiturates Neg (NEG) Urine Phencyclidine Screen Neg (NEG) Urine Amphetamine/Methamphetamine Neg (NEG) Urine Benzodiazepines Screen Pos (NEG) Urine Cocaine Screen Neg (NEG) Urine Cannabinoids Screen Neg (NEG) Urine Ethyl Alcohol Neg (NEG) Test 01/14/20 06:10 01/14/20 06:11 01/14/20 08:40 White Blood Count 22.7 x10^3/uL (4.0-11.0) Red Blood Count 4.95 x10^6/uL (4.30-5.70) Hemoglobin 15.2 g/dL (13.0-17.5) Hematocrit 45.7 % (39.0-53.0) Mean Corpuscular Volume 92 fL (79-100) Mean Corpuscular Hemoglobin 31 pg (25-35) Mean Corpuscular Hemoglobin Concent 33 g/dL (31-37) Red Cell Distribution Width 13.6 % (11.5-14.5) Platelet Count 296 x10^3/uL (140-400) Neutrophils (%) (Auto) 82 % (31-73) Lymphocytes (%) (Auto) 10 % (24-48) Monocytes (%) (Auto) 7 % (0-9) Eosinophils (%) (Auto) 0 % (0-3) Basophils (%) (Auto) 0 % (0-3) Neutrophils # (Auto) 18.7 x10^3/uL (1.8-7.7) Lymphocytes # (Auto) 2.4 x10^3/uL (1.0-4.8) Monocytes # (Auto) 1.6 x10^3/uL (0.0-1.1) Eosinophils # (Auto) 0.0 x10^3/uL (0.0-0.7) Basophils # (Auto) 0.1 x10^3/uL (0.0-0.2) Heparin Anti-Xa Act, Unfractionated 0.19 IU/mL (0.30-0.70) Sodium Level 139 mmol/L (136-145) Potassium Level 3.7 mmol/L (3.5-5.1) Chloride Level 105 mmol/L (98-107) Carbon Dioxide Level 23 mmol/L (21-32) Anion Gap 11 (6-14) Blood Urea Nitrogen 27 mg/dL (8-26) Creatinine 0.9 mg/dL (0.7-1.3) Estimated GFR (Cockcroft-Gault) 85.2 BUN/Creatinine Ratio 30 (6-20) Glucose Level 153 mg/dL (70-99) Calcium Level 8.4 mg/dL (8.5-10.1) Total Bilirubin 0.8 mg/dL (0.2-1.0) Aspartate Amino Transf (AST/SGOT) 143 U/L (15-37) Alanine Aminotransferase (ALT/SGPT) 196 U/L (16-63) Alkaline Phosphatase 67 U/L (46-116) Total Protein 6.4 g/dL (6.4-8.2) Albumin 2.9 g/dL (3.4-5.0) Albumin/Globulin Ratio 0.8 (1.0-1.7) Glucose (Fingerstick) 145 mg/dL (70-99) O2 Saturation 96 % (92-99) Arterial Blood pH 7.56 (7.35-7.45) Arterial Blood pH (Temp corrected) 7.52 Arterial Blood pCO2 at Patient Temp 26 mmHg (35-46) Arterial Blood pCO2 (Temp correct) 29 mmHg Arterial Blood pO2 at Patient Temp 77 mmHg (65-108) Arterial Blood pO2 (Temp corrected) 89 mmHg Arterial Blood HCO3 23 mmol/L (21-28) Arterial Blood Base Excess 2 mmol/L (-3-3) FiO2 40 Medications Active Scripts Medications Dose Route/Sig Max Daily Dose Days Date Category Vitamin D3 Complete Caplet (Mv-Mn/Iron/Fa/Herbal Cmplx#190) 1 Each Tablet 1 Each PO BID 01/13/20 Reported Metformin Hcl 1,000 Mg Tablet 1,000 Mg PO [id number] 01/13/20 Reported Adult Low Dose Aspirin Ec (Aspirin) 81 Mg Tablet.dr 81 Mg PO DAILY 12/10/13 Reported Metoprolol Tartrate 25 Mg Tablet 25 Mg PO BID 08/21/13 Reported Lisinopril 20 Mg Tablet 20 Mg PO DAILY 08/21/13 Reported Plavix (Clopidogrel Bisulfate) 75 Mg Tablet 75 Mg PO DAILY 08/21/13 Reported Atorvastatin Calcium 80 Mg Tablet 80 Mg PO DAILY 08/21/13 Reported Fish Oil 1,200 Mg Fish Oil (Fish Oil/Dha/Epa) 1 Each Capsule 2,400 Mg PO DAILY 08/21/13 Reported Comments CXR: 01/13/20 IMPRESSION: Stable endotracheal intubation with no pneumothorax or other acute complications. Impression . IMPRESSION: 1. Acute hypoxic and hypercapnic respiratory failure secondary to cardiac arrest. 2. Cardiac arrest with V-fib and V-tach. Status post CPR and ACLS protocol for approximately 50 minutes. 3. History of underlying coronary artery disease and suspected non-ST myocardial infarction. 4. Abnormal chest x-ray with faint basal atelectasis or infiltrate. 5. Anoxic encephalopathy due to prolonged CPR. 6. Coffee-ground OG aspirate. Could be related to OG trauma. resolved 7. Likely underlying chronic obstructive pulmonary disease. 8. Abnormal ct head with suspected small ischemic infarct 9. Shock Liver 10. Hypertension Plan . RECOMMENDATIONS: 1. Continue with present assist control mode and make changes based on ABGs- reduce FI02 to 40%. and PEEP 5 , reduce rate 2. Follow cardiology recommendations. Need for any cardiac intervention per cardiology. 3. The patient has abnormal CT head with ischemic infarct---was not a candidate for hypothermic protocol. 4. Monitor renal output. 5. The patient has shock liver. Need to monitor LFTs. 6. off sedation . No response. likely anoxic brain injury. trigers vent/ positive gag 7. Anticoagulation per Cardiology. 8. Continue amiodarone per Cardiology. 9. will update regarding poor prognosis 10. Neurology recs 11. HTN per PCP DVT/GI PPX: Heparin/ Pepcid d/w RN/RT Critical care time 30 minutes. ALEXI LUNDBERG MD January 14, 2020 09:02
[2020-01-14] MEDS: FAMOTIDINE 20 MG/2 ML VIAL IVP SCH ×2 (09:07→20:52)
[2020-01-14] MEDS: ACETAMINOPHEN 650 MG/20.3 ML SOLUTION. PEG PRN (09:07)
--- NOTE | 2020-01-14 09:34 | RAD ---
EXAM: CHEST 1 VIEW History: Respiratory failure COMPARISON: 11/13/2019 TECHNIQUE: Single portable radiograph of the chest FINDINGS: The ET tube is identified in the trachea just below the clavicles. The feeding tube is identified in the stomach. The right subclavian line is unchanged. The costophrenic sulci are clear and well demarcated. IMPRESSION: Lines and tubes unchanged. Electronically signed by: Kem Ayala MD (01/14/2020 9:31 AM) [id number]
--- NOTE | 2020-01-14 10:13 | PDOC ---
PROGRESS NOTES Assessment Problems Medical Problems: (1) Cardiac arrest Status: Acute Anoxic encephalopathy, status-post V. tach cardiac arrest, hypothermia protocol was not used. EEG shows severe diffuse slowing of background Possible posterior right parietal lobe acute or subacute infarct, I am not i mpressed with the findings. He could have had an infarct during the resuscitations. Plan Continue supportive care Okay for heparin regarding cardiac issues Hold on brain MRI Prognosis is guarded. Discussed with patient's , broached DNR Objective Vital Signs Date Time Temp Pulse Resp B/P (MAP) Pulse Ox O2 Delivery O2 Flow Rate FiO2 01/14/20 09:11 90 24 123/60 (81) 100 Ventilator 01/14/20 07:00 102.4 102.4 Intake and Output 01/14/20 06:59 Intake Total 3201.9 ml Output Total 3900 ml Balance -698.1 ml Intake Oral 0 ml IV Total 3201.9 ml Output Urine Total 2900 ml Gastric Drainage Total 1000 ml PHYSICAL EXAM On ventilator No pupillary response No oculocephalic response CN: no focal findings. Muscle tone: normal. Muscle strength: withdraws slightly to pain DTR: 1+ Plantar reflex: silent Gait: not examined Sensory exam: not tested. Cerebellar: not tested Review of Relevant I have reviewed the following items [place] (where applicable) has been applied. Labs Laboratory Tests Test 01/12/20 12:00 01/12/20 12:45 01/12/20 15:00 01/12/20 16:55 White Blood Count 7.1 x10^3/uL (4.0-11.0) Red Blood Count 4.85 x10^6/uL (4.30-5.70) Hemoglobin 15.1 g/dL (13.0-17.5) Hematocrit 46.9 % (39.0-53.0) Mean Corpuscular Volume 97 fL (79-100) Mean Corpuscular Hemoglobin 31 pg (25-35) Mean Corpuscular Hemoglobin Concent 32 g/dL (31-37) Red Cell Distribution Width 13.5 % (11.5-14.5) Platelet Count 278 x10^3/uL (140-400) Neutrophils (%) (Auto) 26 % (31-73) Lymphocytes (%) (Auto) 66 % (24-48) Monocytes (%) (Auto) 4 % (0-9) Eosinophils (%) (Auto) 3 % (0-3) Basophils (%) (Auto) 1 % (0-3) Neutrophils # (Auto) 1.9 x10^3/uL (1.8-7.7) Lymphocytes # (Auto) 4.7 x10^3/uL (1.0-4.8) Monocytes # (Auto) 0.3 x10^3/uL (0.0-1.1) Eosinophils # (Auto) 0.2 x10^3/uL (0.0-0.7) Basophils # (Auto) 0.0 x10^3/uL (0.0-0.2) Prothrombin Time 14.6 SEC (11.7-14.0) Prothromb Time International Ratio 1.2 (0.8-1.1) Activated Partial Thromboplast Time 33 SEC (24-38) Sodium Level 142 mmol/L (136-145) Potassium Level 2.7 mmol/L (3.5-5.1) 3.1 mmol/L (3.5-5.1) Chloride Level 102 mmol/L (98-107) Carbon Dioxide Level 19 mmol/L (21-32) Anion Gap 21 (6-14) Blood Urea Nitrogen 18 mg/dL (8-26) Creatinine 1.4 mg/dL (0.7-1.3) Estimated GFR (Cockcroft-Gault) 51.2 BUN/Creatinine Ratio 13 (6-20) Glucose Level 290 mg/dL (70-99) Calcium Level 8.9 mg/dL (8.5-10.1) Phosphorus Level 7.0 mg/dL (2.6-4.7) Magnesium Level 2.5 mg/dL (1.8-2.4) Total Bilirubin 0.5 mg/dL (0.2-1.0) Aspartate Amino Transf (AST/SGOT) 125 U/L (15-37) Alanine Aminotransferase (ALT/SGPT) 187 U/L (16-63) Alkaline Phosphatase 70 U/L (46-116) Creatine Kinase 152 U/L (39-308) Troponin I Quantitative < 0.017 ng/mL (0.000-0.055) [id number]-Type Natriuretic Peptide 159 pg/mL (0-124) Total Protein 6.3 g/dL (6.4-8.2) Albumin 3.3 g/dL (3.4-5.0) Albumin/Globulin Ratio 1.1 (1.0-1.7) Triglycerides Level 83 mg/dL (0-150) Ethyl Alcohol Level < 10 mg/dL (0-10) O2 Saturation 99 % (92-99) 97 % (92-99) Arterial Blood pH 7.03 (7.35-7.45) 7.34 (7.35-7.45) Arterial Blood pCO2 at Patient Temp 50 mmHg (35-46) 37 mmHg (35-46) Arterial Blood pO2 at Patient Temp 258 mmHg (65-108) 105 mmHg (65-108) Arterial Blood HCO3 13 mmol/L (21-28) 19 mmol/L (21-28) Arterial Blood Base Excess -18 mmol/L (-3-3) -6 mmol/L (-3-3) FiO2 100 vent 60% Test 01/13/20 06:10 01/13/20 07:32 01/13/20 11:40 01/13/20 18:29 White Blood Count 21.9 x10^3/uL (4.0-11.0) Red Blood Count 5.20 x10^6/uL (4.30-5.70) Hemoglobin 15.9 g/dL (13.0-17.5) Hematocrit 47.6 % (39.0-53.0) Mean Corpuscular Volume 92 fL (79-100) Mean Corpuscular Hemoglobin 31 pg (25-35) Mean Corpuscular Hemoglobin Concent 33 g/dL (31-37) Red Cell Distribution Width 13.0 % (11.5-14.5) Platelet Count 325 x10^3/uL (140-400) Neutrophils (%) (Auto) 87 % (31-73) Lymphocytes (%) (Auto) 7 % (24-48) Monocytes (%) (Auto) 6 % (0-9) Eosinophils (%) (Auto) 0 % (0-3) Basophils (%) (Auto) 0 % (0-3) Neutrophils # (Auto) 19.0 x10^3/uL (1.8-7.7) Lymphocytes # (Auto) 1.4 x10^3/uL (1.0-4.8) Monocytes # (Auto) 1.4 x10^3/uL (0.0-1.1) Eosinophils # (Auto) 0.0 x10^3/uL (0.0-0.7) Basophils # (Auto) 0.0 x10^3/uL (0.0-0.2) Segmented Neutrophils % 63 % (35-66) Band Neutrophils % 23 % (0-9) Lymphocytes % 6 % (24-48) Monocytes % 8 % (0-10) Platelet Estimate Adequate (ADEQUATE) Sodium Level 140 mmol/L (136-145) Potassium Level 3.7 mmol/L (3.5-5.1) Chloride Level 106 mmol/L (98-107) Carbon Dioxide Level 22 mmol/L (21-32) Anion Gap 12 (6-14) Blood Urea Nitrogen 31 mg/dL (8-26) Creatinine 1.3 mg/dL (0.7-1.3) Estimated GFR (Cockcroft-Gault) 55.8 Glucose Level 170 mg/dL (70-99) Calcium Level 8.3 mg/dL (8.5-10.1) Magnesium Level 1.5 mg/dL (1.8-2.4) O2 Saturation 99 % (92-99) Arterial Blood pH 7.45 (7.35-7.45) Arterial Blood pCO2 at Patient Temp 35 mmHg (35-46) Arterial Blood pO2 at Patient Temp 231 mmHg (65-108) Arterial Blood HCO3 24 mmol/L (21-28) Arterial Blood Base Excess 0 mmol/L (-3-3) FiO2 60 Troponin I Quantitative 7.581 ng/mL (0.000-0.055) Glucose (Fingerstick) 158 mg/dL (70-99) Test 01/13/20 23:44 01/14/20 00:15 01/14/20 06:10 01/14/20 06:11 Glucose (Fingerstick) 171 mg/dL (70-99) 145 mg/dL (70-99) Heparin Anti-Xa Act, Unfractionated 0.36 IU/mL (0.30-0.70) 0.19 IU/mL (0.30-0.70) Urine Collection Type Unknown Urine Color Yellow Urine Clarity Clear Urine pH 6.5 (<5.0-8.0) Urine Specific [place] 1.020 (1.000-1.030) Urine Protein 30 mg/dL (NEG-TRACE) Urine Glucose (UA) Negative mg/dL (NEG) Urine Ketones (Stick) Trace mg/dL (NEG) Urine Blood Moderate (NEG) Urine Nitrite Negative (NEG) Urine Bilirubin Negative (NEG) Urine Urobilinogen Dipstick 1.0 mg/dL (0.2 mg/dL) Urine Leukocyte Esterase Negative (NEG) Urine RBC Occ /HPF (0-2) Urine WBC 1-4 /HPF (0-4) Urine Bacteria 0 /HPF (0-FEW) Urine Cellular Casts Occ /HPF Urine Hyaline Casts Few /HPF Urine Granular Casts Moderate /HPF Urine Waxy Casts Occasional /HPF Urine Mucus Mod /LPF Urine Opiates Screen Neg (NEG) Urine Methadone Screen Neg (NEG) Urine Barbiturates Neg (NEG) Urine Phencyclidine Screen Neg (NEG) Urine Amphetamine/Methamphetamine Neg (NEG) Urine Benzodiazepines Screen Pos (NEG) Urine Cocaine Screen Neg (NEG) Urine Cannabinoids Screen Neg (NEG) Urine Ethyl Alcohol Neg (NEG) White Blood Count 22.7 x10^3/uL (4.0-11.0) Red Blood Count 4.95 x10^6/uL (4.30-5.70) Hemoglobin 15.2 g/dL (13.0-17.5) Hematocrit 45.7 % (39.0-53.0) Mean Corpuscular Volume 92 fL (79-100) Mean Corpuscular Hemoglobin 31 pg (25-35) Mean Corpuscular Hemoglobin Concent 33 g/dL (31-37) Red Cell Distribution Width 13.6 % (11.5-14.5) Platelet Count 296 x10^3/uL (140-400) Neutrophils (%) (Auto) 82 % (31-73) Lymphocytes (%) (Auto) 10 % (24-48) Monocytes (%) (Auto) 7 % (0-9) Eosinophils (%) (Auto) 0 % (0-3) Basophils (%) (Auto) 0 % (0-3) Neutrophils # (Auto) 18.7 x10^3/uL (1.8-7.7) Lymphocytes # (Auto) 2.4 x10^3/uL (1.0-4.8) Monocytes # (Auto) 1.6 x10^3/uL (0.0-1.1) Eosinophils # (Auto) 0.0 x10^3/uL (0.0-0.7) Basophils # (Auto) 0.1 x10^3/uL (0.0-0.2) Sodium Level 139 mmol/L (136-145) Potassium Level 3.7 mmol/L (3.5-5.1) Chloride Level 105 mmol/L (98-107) Carbon Dioxide Level 23 mmol/L (21-32) Anion Gap 11 (6-14) Blood Urea Nitrogen 27 mg/dL (8-26) Creatinine 0.9 mg/dL (0.7-1.3) Estimated GFR (Cockcroft-Gault) 85.2 BUN/Creatinine Ratio 30 (6-20) Glucose Level 153 mg/dL (70-99) Calcium Level 8.4 mg/dL (8.5-10.1) Total Bilirubin 0.8 mg/dL (0.2-1.0) Aspartate Amino Transf (AST/SGOT) 143 U/L (15-37) Alanine Aminotransferase (ALT/SGPT) 196 U/L (16-63) Alkaline Phosphatase 67 U/L (46-116) Total Protein 6.4 g/dL (6.4-8.2) Albumin 2.9 g/dL (3.4-5.0) Albumin/Globulin Ratio 0.8 (1.0-1.7) Test 01/14/20 08:40 O2 Saturation 96 % (92-99) Arterial Blood pH 7.56 (7.35-7.45) Arterial Blood pH (Temp corrected) 7.52 Arterial Blood pCO2 at Patient Temp 26 mmHg (35-46) Arterial Blood pCO2 (Temp correct) 29 mmHg Arterial Blood pO2 at Patient Temp 77 mmHg (65-108) Arterial Blood pO2 (Temp corrected) 89 mmHg Arterial Blood HCO3 23 mmol/L (21-28) Arterial Blood Base Excess 2 mmol/L (-3-3) FiO2 40 Laboratory Tests Test 01/13/20 11:40 01/13/20 18:29 01/13/20 23:44 01/14/20 00:15 Troponin I Quantitative 7.581 ng/mL (0.000-0.055) Glucose (Fingerstick) 158 mg/dL (70-99) 171 mg/dL (70-99) Heparin Anti-Xa Act, Unfractionated 0.36 IU/mL (0.30-0.70) Urine Collection Type Unknown Urine Color Yellow Urine Clarity Clear Urine pH 6.5 (<5.0-8.0) Urine Specific [place] 1.020 (1.000-1.030) Urine Protein 30 mg/dL (NEG-TRACE) Urine Glucose (UA) Negative mg/dL (NEG) Urine Ketones (Stick) Trace mg/dL (NEG) Urine Blood Moderate (NEG) Urine Nitrite Negative (NEG) Urine Bilirubin Negative (NEG) Urine Urobilinogen Dipstick 1.0 mg/dL (0.2 mg/dL) Urine Leukocyte Esterase Negative (NEG) Urine RBC Occ /HPF (0-2) Urine WBC 1-4 /HPF (0-4) Urine Bacteria 0 /HPF (0-FEW) Urine Cellular Casts Occ /HPF Urine Hyaline Casts Few /HPF Urine Granular Casts Moderate /HPF Urine Waxy Casts Occasional /HPF Urine Mucus Mod /LPF Urine Opiates Screen Neg (NEG) Urine Methadone Screen Neg (NEG) Urine Barbiturates Neg (NEG) Urine Phencyclidine Screen Neg (NEG) Urine Amphetamine/Methamphetamine Neg (NEG) Urine Benzodiazepines Screen Pos (NEG) Urine Cocaine Screen Neg (NEG) Urine Cannabinoids Screen Neg (NEG) Urine Ethyl Alcohol Neg (NEG) Test 01/14/20 06:10 01/14/20 06:11 01/14/20 08:40 White Blood Count 22.7 x10^3/uL (4.0-11.0) Red Blood Count 4.95 x10^6/uL (4.30-5.70) Hemoglobin 15.2 g/dL (13.0-17.5) Hematocrit 45.7 % (39.0-53.0) Mean Corpuscular Volume 92 fL (79-100) Mean Corpuscular Hemoglobin 31 pg (25-35) Mean Corpuscular Hemoglobin Concent 33 g/dL (31-37) Red Cell Distribution Width 13.6 % (11.5-14.5) Platelet Count 296 x10^3/uL (140-400) Neutrophils (%) (Auto) 82 % (31-73) Lymphocytes (%) (Auto) 10 % (24-48) Monocytes (%) (Auto) 7 % (0-9) Eosinophils (%) (Auto) 0 % (0-3) Basophils (%) (Auto) 0 % (0-3) Neutrophils # (Auto) 18.7 x10^3/uL (1.8-7.7) Lymphocytes # (Auto) 2.4 x10^3/uL (1.0-4.8) Monocytes # (Auto) 1.6 x10^3/uL (0.0-1.1) Eosinophils # (Auto) 0.0 x10^3/uL (0.0-0.7) Basophils # (Auto) 0.1 x10^3/uL (0.0-0.2) Heparin Anti-Xa Act, Unfractionated 0.19 IU/mL (0.30-0.70) Sodium Level 139 mmol/L (136-145) Potassium Level 3.7 mmol/L (3.5-5.1) Chloride Level 105 mmol/L (98-107) Carbon Dioxide Level 23 mmol/L (21-32) Anion Gap 11 (6-14) Blood Urea Nitrogen 27 mg/dL (8-26) Creatinine 0.9 mg/dL (0.7-1.3) Estimated GFR (Cockcroft-Gault) 85.2 BUN/Creatinine Ratio 30 (6-20) Glucose Level 153 mg/dL (70-99) Calcium Level 8.4 mg/dL (8.5-10.1) Total Bilirubin 0.8 mg/dL (0.2-1.0) Aspartate Amino Transf (AST/SGOT) 143 U/L (15-37) Alanine Aminotransferase (ALT/SGPT) 196 U/L (16-63) Alkaline Phosphatase 67 U/L (46-116) Total Protein 6.4 g/dL (6.4-8.2) Albumin 2.9 g/dL (3.4-5.0) Albumin/Globulin Ratio 0.8 (1.0-1.7) Glucose (Fingerstick) 145 mg/dL (70-99) O2 Saturation 96 % (92-99) Arterial Blood pH 7.56 (7.35-7.45) Arterial Blood pH (Temp corrected) 7.52 Arterial Blood pCO2 at Patient Temp 26 mmHg (35-46) Arterial Blood pCO2 (Temp correct) 29 mmHg Arterial Blood pO2 at Patient Temp 77 mmHg (65-108) Arterial Blood pO2 (Temp corrected) 89 mmHg Arterial Blood HCO3 23 mmol/L (21-28) Arterial Blood Base Excess 2 mmol/L (-3-3) FiO2 40 Medications Current Medications Heparin Sodium/ Sodium Chloride 0 ml @ As Directed STK-MED ONCE .ROUTE ; Start 01/12/20 at 12:25; Stop 01/12/20 at 12:25; Status DC Fentanyl Citrate (Fentanyl 2ml Vial) 100 mcg STK-MED ONCE .ROUTE ; Start 01/12/20 at 12:26; Stop 01/12/20 at 12:26; Status DC Midazolam HCl (Versed) 2 mg STK-MED ONCE .ROUTE ; Start 01/12/20 at 12:26; Stop 01/12/20 at 12:26; Status DC Iodixanol (Visipaque 320) 100 ml STK-MED ONCE .ROUTE ; Start 01/12/20 at 12:26; Stop 01/12/20 at 12:26; Status DC Lidocaine HCl (Lidocaine 1% 20ml Vial) 20 ml STK-MED ONCE .ROUTE ; Start 01/12/20 at 12:26; Stop 01/12/20 at 12:27; Status DC Amiodarone HCl 450 mg/Dextrose 259 ml @ 0 mls/hr CONT PRN IV SEE I/O RECORD; Start 01/12/20 at 12:45; Status UNV Amiodarone HCl 450 mg/Dextrose 259 ml @ 33 mls/hr CONT PRN IV SEE I/O RECORD Last administered on 01/13/20at 03:07; Start 01/12/20 at 12:45; Stop 01/13/20 at 03:07; Status DC Fentanyl Citrate (Fentanyl 2ml Vial) 100 mcg 1X ONCE IV Last administered on 01/12/20at 12:54; Start 01/12/20 at 13:00; Stop 01/12/20 at 13:01; Status DC Midazolam HCl (Versed) 2 mg 1X ONCE IV Last administered on 01/12/20at 12:54; Start 01/12/20 at 13:00; Stop 01/12/20 at 13:01; Status DC Magnesium Sulfate/ Dextrose 100 ml @ 100 mls/hr 1X ONCE IV ; Start 01/12/20 at 13:00; Stop 01/12/20 at 13:59; Status DC Buspirone HCl (Buspar) 30 mg Q8H NG ; Start 01/12/20 at 13:00; Stop 01/12/20 at 17:03; Status DC Acetaminophen (Tylenol) 650 mg Q4H NG ; Start 01/12/20 at 13:00; Stop 01/12/20 at 21:13; Status DC Acetaminophen (Tylenol Supp) 650 mg PRN Q4HRS PRN CA IF NO NG DOSE GIVEN Last administered on 01/14/20at 09:07; Start 01/12/20 at 12:45 Artificial Tears (Artificial Tears) 1 drop Q6HRS OU ; Start 01/12/20 at 18:00; Stop 01/12/20 at 21:13; Status DC Artificial Tears (Artificial Tears) 1 drop PRN Q15MIN PRN OU DRY EYE; Start 01/12/20 at 12:45 Heparin Sodium (Porcine) (Heparin Sodium) 5,000 unit BID SQ Last administered on 01/12/20at 21:19; Start 01/12/20 at 21:00; Stop 01/13/20 at 15:08; Status DC Pantoprazole Sodium (PROTONIX VIAL for IV PUSH) 40 mg DAILY IVP ; Start 01/13/20 at 09:00; Stop 01/12/20 at 17:03; Status DC Fentanyl Citrate 30 ml @ 0 mls/hr CONT PRN IV PER PROTOCOL.; Start 01/12/20 at 12:45 Propofol 100 ml @ 0 mls/hr CONT PRN IV PER PROTOCOL.; Start 01/12/20 at 12:45 Midazolam HCl 100 ml @ 0 mls/hr CONT PRN IV PER PROTOCOL. Last administered on 01/12/20at 13:32; Start 01/12/20 at 12:45 Vecuronium [place] (Norcuron Bolus) 10 mg PRN Q1HR PRN IV SHIVERING; Start 01/12/20 at 12:45 Fentanyl Citrate 30 ml @ 0 mls/hr CONT PRN IV SEE PROTOCOL; Start 01/12/20 at 13:00; Status UNV Fentanyl Citrate (Fentanyl 2ml Vial) 25 mcg PRN Q1HR PRN IV SEE COMMENTS; Start 01/12/20 at 13:00 Fentanyl Citrate (Fentanyl 2ml Vial) 50 mcg PRN Q1HR PRN IV SEE COMMENTS Last administered on 01/13/20at 06:06; Start 01/12/20 at 13:00 Chlorhexidine Gluconate (Peridex) 15 ml BID MM ; Start 01/12/20 at 21:00; Stop 01/12/20 at 17:03; Status DC Midazolam HCl 100 ml @ 0 mls/hr CONT PRN IV SEE PROTOCOL; Start 01/12/20 at 13:00; Status UNV Potassium Chloride/Water 100 ml @ 50 mls/hr 1X ONCE IV Last administered on 01/12/20at 14:00; Start 01/12/20 at 14:00; Stop 01/12/20 at 15:59; Status DC Dopamine HCl/ Dextrose 250 ml @ 17.944 mls/ hr CONT PRN PRN IV SEE PROTOCOL; Start 01/12/20 at 16:49 Famotidine (Pepcid Vial) 20 mg BID IVP Last administered on 01/14/20at 09:07; Start 01/12/20 at 21:00 Potassium Chloride/Water 100 ml @ 100 mls/hr Q1H IV Last administered on at 20:26; Start 01/12/20 at 17:30; Stop 01/12/20 at 19:29; Status DC Sodium Chloride 1,000 ml @ 100 mls/hr Q10H IV Last administered on 01/14/20at 00:30; Start 01/12/20 at 18:30 Acetaminophen (Tylenol) 650 mg PRN Q6HRS PRN PEG MILD PAIN / TEMP > 100.3'F Last administered on 01/13/20at 04:16; Start 01/13/20 at 04:15 Magnesium Sulfate/ Dextrose 100 ml @ 100 mls/hr 1X ONCE IV Last administered on 01/13/20at 07:59; Start 01/13/20 at 08:00; Stop 01/13/20 at 08:59; Status DC Nicardipine HCl 50 mg/Sodium Chloride 250 ml @ 25 mls/hr CONT PRN IV SEE I/O RECORD Last administered on 01/14/20at 00:22; Start 01/13/20 at 09:00 Amiodarone HCl 450 mg/Dextrose 259 ml @ 17 mls/hr CONT PRN IV SEE I/O RECORD Last administered on 01/14/20at 06:13; Start 01/13/20 at 11:30 Insulin Human Lispro (HumaLOG) 0-7 UNITS Q6HRS SQ ; Start 01/13/20 at 13:15 Dextrose (Dextrose 50%-Water Syringe) 12.5 gm PRN Q15MIN PRN IV SEE COMMENTS; Start 01/13/20 at 13:15 Heparin Sodium/ Dextrose 250 ml @ 0 mls/hr CONT PRN IV PER PROTOCOL Last administered on 01/13/20at 16:00; Start 01/13/20 at 15:30 Heparin Sodium (Porcine) (Heparin Sodium) 2,300 unit PRN Q6HRS PRN IV FOR UFH LEVEL LESS THAN 0.2 Last administered on 01/14/20at 07:56; Start 01/13/20 at 15:30 Amiodarone HCl 450 mg/Dextrose 259 ml @ 0 mls/hr DAILY IV ; Start 01/13/20 at 15:45; Status UNV Active Scripts Active Reported Vitamin D3 Complete Caplet (Mv-Mn/Iron/Fa/Herbal Cmplx#190) 1 Each Tablet 1 Each PO BID Metformin Hcl 1,000 Mg Tablet 1,000 Mg PO BIDWMEALS Adult Low Dose Aspirin Ec (Aspirin) 81 Mg Tablet.dr 81 Mg PO DAILY Metoprolol Tartrate 25 Mg Tablet 25 Mg PO BID Lisinopril 20 Mg Tablet 20 Mg PO DAILY Plavix (Clopidogrel Bisulfate) 75 Mg Tablet 75 Mg PO DAILY Atorvastatin Calcium 80 Mg Tablet 80 Mg PO DAILY Fish Oil 1,200 Mg Fish Oil (Fish Oil/Dha/Epa) 1 Each Capsule 2,400 Mg PO DAILY Vitals/I & O Vital Sign - Last 24 Hours 01/13/20 01/13/20 01/13/20 01/13/20 11:00 12:00 12:00 12:18 Temp 100.1 100.1 Pulse 134 132 Resp 26 26 B/P (MAP) 168/79 (108) 150/80 (103) Pulse Ox 98 98 97 O2 Delivery Ventilator Ventilator Mechanical Ventilator Ventilator 01/13/20 01/13/20 01/13/20 01/13/20 13:00 14:00 15:00 15:28 Pulse 132 133 126 Resp 26 26 26 B/P (MAP) 158/81 (106) 149/78 (101) 156/83 (107) Pulse Ox 98 98 96 O2 Delivery Ventilator Ventilator Ventilator Ventilator 5/301/13/20 01/13/20 01/13/20 16:00 16:00 17:00 18:00 Temp 101.8 101.8 Pulse 124 122 120 Resp B/P (MAP) 158/83 (108) 154/80 (104) 159/81 (107) Pulse Ox 98 O2 Delivery Mechanical Ventilator Ventilator Ventilator Ventilator 01/13/20 01/13/20 01/13/20 01/13/20 19:00 20:00 20:00 20:25 Temp 100.3 100.3 Pulse 120 115 B/P (MAP) 152/74 (100) 152/78 (102) Pulse Ox 98 99 96 O2 Delivery Ventilator Ventilator Mechanical Ventilator Ventilator 01/13/20 01/13/20 01/13/20 01/13/20 21:00 21:51 22:00 23:00 Pulse 112 110 110 Resp B/P (MAP) 153/79 (103) 144/77 (99) 147/80 (102) Pulse Ox 99 96 98 98 O2 Delivery Ventilator Ventilator Ventilator Ventilator 01/13/20 01/14/20 01/14/20 01/14/20 23:20 00:00 00:00 01:00 Temp 101.3 101.3 Pulse 105 107 Resp B/P (MAP) 146/78 (100) 141/75 (97) Pulse Ox 96 99 99 O2 Delivery Ventilator Ventilator Mechanical Ventilator Ventilator 01/14/20 01/14/20 01/14/20 01/14/20 01:02 02:00 03:00 04:00 Pulse 105 104 B/P (MAP) 142/75 (97) 143/75 (97) Pulse Ox 96 100 100 O2 Delivery Ventilator Ventilator Ventilator Mechanical Ventilator 01/14/20 01/14/20 01/14/20 01/14/20 04:00 04:22 05:00 06:00 Temp 100.9 100.9 Pulse 102 101 97 Resp B/P (MAP) 142/72 (95) 141/72 (95) 133/71 (91) Pulse Ox 100 96 100 98 O2 Delivery Ventilator Ventilator Ventilator Ventilator 01/14/20 01/14/20 01/14/20 01/14/20 07:00 08:14 08:15 08:23 Temp 102.4 102.4 Pulse 94 95 Resp 27 29 B/P (MAP) 114/67 (83) 118/69 (85) Pulse Ox 98 97 98 O2 Delivery Ventilator Ventilator Ventilator Mechanical Ventilator 01/14/20 09:11 Pulse 90 Resp 24 B/P (MAP) 123/60 (81) Pulse Ox 100 O2 Delivery Ventilator Intake and Output 01/13/20 01/13/20 01/14/20 14:59 22:59 06:59 Intake Total 1399 ml 1802.9 ml Output Total 750 ml 2075 ml 1075 ml Balance -750 ml -676 ml 727.9 ml JONATHAN ADAMES MD January 14, 2020 10:13
--- NOTE | 2020-01-14 10:55 | PDOC ---
ALESIA ROGERS BOND UNDERWRITER 01/14/20 1055: CARDIO Progress Notes Date and Time Date of Service 01/14/20 Time of Evaluation 0925 Subjective Subjective: Other (off sedation, not responsive. at bedside) Vitals Vitals Vital Signs Date Time Temp Pulse Resp B/P (MAP) Pulse Ox O2 Delivery O2 Flow Rate FiO2 01/14/20 10:11 90 24 116/65 (82) 97 Ventilator 01/14/20 07:00 102.4 102.4 Weight Weight [ ] Input and Output Intake and Output Intake and Output 01/14/20 07:00 Intake Total 3201.9 ml Output Total 4050 ml Balance -848.1 ml Intake Oral 0 ml IV Total 3201.9 ml Output Urine Total 3050 ml Gastric Drainage Total 1000 ml Laboratory Labs Laboratory Tests Test 01/13/20 11:40 01/13/20 18:29 01/13/20 23:44 01/14/20 00:15 Troponin I Quantitative 7.581 ng/mL (0.000-0.055) Glucose (Fingerstick) 158 mg/dL (70-99) 171 mg/dL (70-99) Heparin Anti-Xa Act, Unfractionated 0.36 IU/mL (0.30-0.70) Urine Collection Type Unknown Urine Color Yellow Urine Clarity Clear Urine pH 6.5 (<5.0-8.0) Urine Specific [place] 1.020 (1.000-1.030) Urine Protein 30 mg/dL (NEG-TRACE) Urine Glucose (UA) Negative mg/dL (NEG) Urine Ketones (Stick) Trace mg/dL (NEG) Urine Blood Moderate (NEG) Urine Nitrite Negative (NEG) Urine Bilirubin Negative (NEG) Urine Urobilinogen Dipstick 1.0 mg/dL (0.2 mg/dL) Urine Leukocyte Esterase Negative (NEG) Urine RBC Occ /HPF (0-2) Urine WBC 1-4 /HPF (0-4) Urine Bacteria 0 /HPF (0-FEW) Urine Cellular Casts Occ /HPF Urine Hyaline Casts Few /HPF Urine Granular Casts Moderate /HPF Urine Waxy Casts Occasional /HPF Urine Mucus Mod /LPF Urine Opiates Screen Neg (NEG) Urine Methadone Screen Neg (NEG) Urine Barbiturates Neg (NEG) Urine Phencyclidine Screen Neg (NEG) Urine Amphetamine/Methamphetamine Neg (NEG) Urine Benzodiazepines Screen Pos (NEG) Urine Cocaine Screen Neg (NEG) Urine Cannabinoids Screen Neg (NEG) Urine Ethyl Alcohol Neg (NEG) Test 01/14/20 06:10 01/14/20 06:11 01/14/20 08:40 White Blood Count 22.7 x10^3/uL (4.0-11.0) Red Blood Count 4.95 x10^6/uL (4.30-5.70) Hemoglobin 15.2 g/dL (13.0-17.5) Hematocrit 45.7 % (39.0-53.0) Mean Corpuscular Volume 92 fL (79-100) Mean Corpuscular Hemoglobin 31 pg (25-35) Mean Corpuscular Hemoglobin Concent 33 g/dL (31-37) Red Cell Distribution Width 13.6 % (11.5-14.5) Platelet Count 296 x10^3/uL (140-400) Neutrophils (%) (Auto) 82 % (31-73) Lymphocytes (%) (Auto) 10 % (24-48) Monocytes (%) (Auto) 7 % (0-9) Eosinophils (%) (Auto) 0 % (0-3) Basophils (%) (Auto) 0 % (0-3) Neutrophils # (Auto) 18.7 x10^3/uL (1.8-7.7) Lymphocytes # (Auto) 2.4 x10^3/uL (1.0-4.8) Monocytes # (Auto) 1.6 x10^3/uL (0.0-1.1) Eosinophils # (Auto) 0.0 x10^3/uL (0.0-0.7) Basophils # (Auto) 0.1 x10^3/uL (0.0-0.2) Heparin Anti-Xa Act, Unfractionated 0.19 IU/mL (0.30-0.70) Sodium Level 139 mmol/L (136-145) Potassium Level 3.7 mmol/L (3.5-5.1) Chloride Level 105 mmol/L (98-107) Carbon Dioxide Level 23 mmol/L (21-32) Anion Gap 11 (6-14) Blood Urea Nitrogen 27 mg/dL (8-26) Creatinine 0.9 mg/dL (0.7-1.3) Estimated GFR (Cockcroft-Gault) 85.2 BUN/Creatinine Ratio 30 (6-20) Glucose Level 153 mg/dL (70-99) Calcium Level 8.4 mg/dL (8.5-10.1) Total Bilirubin 0.8 mg/dL (0.2-1.0) Aspartate Amino Transf (AST/SGOT) 143 U/L (15-37) Alanine Aminotransferase (ALT/SGPT) 196 U/L (16-63) Alkaline Phosphatase 67 U/L (46-116) Total Protein 6.4 g/dL (6.4-8.2) Albumin 2.9 g/dL (3.4-5.0) Albumin/Globulin Ratio 0.8 (1.0-1.7) Glucose (Fingerstick) 145 mg/dL (70-99) O2 Saturation 96 % (92-99) Arterial Blood pH 7.56 (7.35-7.45) Arterial Blood pH (Temp corrected) 7.52 Arterial Blood pCO2 at Patient Temp 26 mmHg (35-46) Arterial Blood pCO2 (Temp correct) 29 mmHg Arterial Blood pO2 at Patient Temp 77 mmHg (65-108) Arterial Blood pO2 (Temp corrected) 89 mmHg Arterial Blood HCO3 23 mmol/L (21-28) Arterial Blood Base Excess 2 mmol/L (-3-3) FiO2 40 Physical Exam HEENT: Neck Supple W Full Motion Chest: Symmetric LUNGS: Other (mechanical vent) Heart: RRR Abdomen: Other (soft ) Extremities: No Edema Neurology: other (off sedation, no response) Assessment Assessment 1. OOH arrest secondary to VT, VF. Prolonged CPR prior to ROSC. Rhythm stable overnight on IV amiodarone. 2. Acute respiratory failure secondary to cardiac arrest; s/p intubation. Off sedation 3. CAD s/p remote PCI of the LAD and RCA. Followed with Dr. Pierre, but has not seen since 04/2018 as he was feeling well per . 4. Hypertension 5. Hyperlipidemia 6. Diabetes, II 7. Posterior right parietal lobe hypodensity; ? infarct. Neurology following 8. Anoxic encephalopathy secondary to prolonged CPR 9. Leukocytosis, fevers. Recommendations Echo to assess LV systolic function Continue Amiodarone; covert to oral when able to give PO per OG Continue heparin gtt Lipids, TSH ASA Consider further ischemic evaluation if meaningful recovery although prognosis is grim. ALON GOVEA MD 01/14/20 1838: CARDIO Progress Notes Assessment Assessment Patient seen and examined. Agree with BOOKKEEPER ASSISTANT's assessment and plan. Continue vent management per pulm team Tele dot show any significant arrhythmias 2D echo showed preserved LVEF with inferior wall motion abnormality We will consider cardiac cath if he has meaningful neurological recovery ALESIA ROGERS APRN January 14, 2020 10:55 ALON GOVEA MD January 14, 2020 18:38
--- NOTE | 2020-01-14 10:56 | EEG ---
DATE OF SERVICE: 01/14/2020 ELECTROENCEPHALOGRAM REPORT EEG #: [id number]. OBJECTIVE: The patient is a 64-year-old male with anoxic encephalopathy. DESCRIPTION: This is a digital study. Electrodes are placed according to the international 10-20 system. Activation procedures typically include hyperventilation intermittent photic stimulation. INTERPRETATION: The record consists of 2-3 Hz, 10-20 microvolt activity without any reactivity. Hyperventilation is not performed. Intermittent photic stimulation is noncontributory. Sleep is not achieved. IMPRESSION: This electroencephalogram with the patient in an obtunded state is abnormal because of a severe, diffuse disturbance of cerebral activity consistent with anoxic encephalopathy. There is no focal, paroxysmal or epileptiform activity. Thank you for letting us help with the patient's care. JONATHAN ADAMES MD DR: ALICIA/filemon JOB#: [id number] / [id number]
[2020-01-14] MEDS: HEPARIN 25,000UTS/250ML PREMIX 250 ML IV PRN (11:50)
[2020-01-14] MEDS ORDERED: ASPIRIN ENTERIC COATED 81 MG TABLET.DR. PO SCH (15:00)
--- NOTE | 2020-01-14 15:55 | CARD ---
MR#: [id number] Date of Study: 01/14/2020 Ordering Physician: CHRIS MURRELL, Referring Physician: CHRIS MURRELL, Tech: Mary Ta [facility] APPROVED REPORT EXAM: Two-dimensional and M-mode echocardiogram with Doppler and color Doppler. Other Information Quality : Technically Limited Technically limited study due to intubation. INDICATION Cardiac Arrest 2D DIMENSIONS Left Atrium(2D)3.8 (1.6-4.0cm)IVSd1.3 (0.7-1.1cm) Aortic Root(2D)3.2 (2.0-3.7cm)LVDd4.5 (3.9-5.9cm) LVOT Diameter1.9 (1.8-2.4cm)PWd1.2 (0.7-1.1cm) LVDs3.2 (2.5-4.0cm)FS (%) 30.2 % SV54.5 mlLVEF(%)57.7 (>50%) Aortic Valve AoV Peak Teo.160.2cm/sAoV VTI15.2cm AO Peak GR.10.3mmHgLVOT VTI 16.81cm AO Mean GR.5mmHgAVA (VTI)3.20cm2 Mitral Valve MV E Jzbocjoa85.0cm/sMV DECEL [id number] MV A Bvhkjagl38.0cm/sE/A Ratio0.6 TDI Lateral E' P. V7.47cm/sMedial E' P. V6.69cm/s E/Lateral E'6.6E/Medial E'7.3 Tricuspid Valve TR P. [id number]/sRAP [id number] TR Peak Gr.[id number] LEFT VENTRICLE The left ventricle is normal size. There is mild concentric left ventricular hypertrophy. Technically difficult study. Base to mid inferior wall appears hypokinetic. The Ejection Fraction is 60-65%. Tra nsmitral Doppler flow pattern is Grade I-abnormal relaxation pattern. RIGHT VENTRICLE The right ventricle is normal size. The right ventricular systolic function is normal. ATRIA The left atrium size is normal. The right atrium size is normal. The interatrial septum is intact wit h no evidence for an atrial septal defect or patent foramen ovale as noted on 2-D or Doppler imaging. AORTIC VALVE The aortic valve is best visualized in the subcostal views. It appears to be calcified but opens well . Doppler and Color Flow revealed no significant aortic regurgitation. There is no significant aortic valvular stenosis. MITRAL VALVE The mitral valve is normal in structure and function. There is no evidence of mitral valve prolapse. There is no mitral valve stenosis. Doppler and Color Flow revealed no mitral valve regurgitation note d. TRICUSPID VALVE The tricuspid valve is not well visualized. Doppler and Color Flow revealed trace tricuspid regurgita tion. The PA pressure was estimated at 29 mmHg. There is no tricuspid valve stenosis. PULMONIC VALVE The pulmonic valve is not well visualized. Doppler and Color Flow revealed no pulmonic valvular regur gitation. There is no pulmonic valvular stenosis. GREAT VESSELS The aortic root is normal in size. The ascending aorta is not well seen. The IVC is normal in size an d collapses >50% with inspiration. PERICARDIAL EFFUSION There is no evidence of significant pericardial effusion. Critical Notification Critical Value: No <Conclusion> Technically difficult study. Base to mid inferior wall appears hypokinetic. The Ejection Fraction is 60-65%. Transmitral Doppler flow pattern is Grade I-abnormal relaxation pattern. Doppler and Color Flow revealed trace tricuspid regurgitation. The PA pressure was estimated at 29 mmHg. There is no evidence of significant pericardial effusion. Signed by : Alban Millard, Electronically Approved : 01/14/2020 15:55:24
--- NOTE | 2020-01-14 15:56 | NUR ---
SS following for discharge planning. SS reviewed pt chart and discussed with pt RN. Pt is from home with spouse and is currently on the vent. SS will continue to follow for discharge planning.
[2020-01-14 16:05] LABS: CHOLESTEROL/HDL RATIO 2.2
--- NOTE | 2020-01-14 17:53 | PDOC ---
PROGRESS NOTES Chief Complaint Chief Complaint A/P: Acute hypoxic and hypercapnic respiratory failure secondary to cardiac arrest. Ventricular fibrillation Cardiac arrest - s/p CPR and ACLS protocol for approximately 50 minutes. Coronary artery disease and suspected non-ST myocardial infarction. Coffee-ground OG aspirate. Could be related to OG trauma. Likely chronic obstructive pulmonary disease. Abnormal ct head with suspected small ischemic infarct -there is likely an infarct, also concern for significant anoxic brain injury on examination Shock Liver Fever-likely secondary to aspiration, will monitor FEN PPX FULL CODE Dispo - ICU, overall poor prognosis History of Present Illness History of Present Illness Mr Rivas is a 64 y M w/ PMHx CAD (stent 14 yr ago), DM2, ex-smoker (30 pack year history) who presents via EMS on 01/12/2020 after being found down by his family. EMS found him in V-tach, initiated CPR and had ACLS protocol followed for about 20 minutes. In ED had approximately 20-25 minutes of CPR intermittently with shock and ACLS medications with rhythm throughout V-tach and V-fib. ROSC eventually achieved and he was initiated on IV amiodarone and 2 ampules of bicarbonate. He was requiring low-dose Levophed. Cardiology advised no immediate intervention indicated. Initial ABG pH of 7.03, pCO2 of 50 and a pO2 of 258 started on 60% and [address] head with concern for left parietal ischemia. Initial K 2.7. BUN 18, creatinine 1.4. AST and ALT elevated. WBC 7.1, hemoglobin 15.1, platelets 278,000. 01/13/2020 Overnight had some shaking episodes. This morning temperature 101.7 F, WBC 21.3, K3.7, CR 1.3, MG 1.5, ABG 7.45/30 on 60% FiO2. is currently bedside to witness physical examination with eyes deviated upward into the left no meaningful response to pain does have gag to suction. Does not follow any commands has been off sedation for 6 hours. I had a long conversation with who has conference called the sons to discuss goals of further care and they have made it very clear that his wish was not to remain in a persistent vegetative state if there is no meaningful prognosis for neurologic recovery. They are aware of the overall poor prognosis given his prolonged CPR course. 01/14/2020 Quite grim prognosis, discussed with at bedside, reassured her but also gave her the perspective of a meaningful recovery being unlikey in light of his current state. also reassured her that she had the conversation with the patient regarding wishes not to have intervention that would just prolong the inevitable. I asked her about the patients wishes and as stated on my colleagues note yesterday he had voiced not wanting to have supportive measures if he would be in a persistent vegetative state which seems to be the direction he is going. Will continue to follow. Vitals Vitals Vital Signs Date Time Temp Pulse Resp B/P (MAP) Pulse Ox O2 Delivery O2 Flow Rate FiO2 01/14/20 17:29 75 26 147/76 (99) 97 Ventilator 01/14/20 15:34 101.7 101.7 Physical Exam Physical Exam On ventilator No pupillary response No oculocephalic response CN: no focal findings. Muscle tone: normal. Muscle strength: withdraws slightly to pain DTR: 1+ Plantar reflex: silent General: No acute distress, Other (Intubated and on a ventilator) Heart: Regular rate Lungs: Clear Abdomen: Normal bowel sounds Labs LABS Laboratory Tests Test 01/13/20 18:29 01/13/20 23:44 01/14/20 00:15 01/14/20 06:10 Glucose (Fingerstick) 158 mg/dL (70-99) 171 mg/dL (70-99) Heparin Anti-Xa Act, Unfractionated 0.36 IU/mL (0.30-0.70) 0.19 IU/mL (0.30-0.70) Urine Collection Type Unknown Urine Color Yellow Urine Clarity Clear Urine pH 6.5 (<5.0-8.0) Urine Specific [place] 1.020 (1.000-1.030) Urine Protein 30 mg/dL (NEG-TRACE) Urine Glucose (UA) Negative mg/dL (NEG) Urine Ketones (Stick) Trace mg/dL (NEG) Urine Blood Moderate (NEG) Urine Nitrite Negative (NEG) Urine Bilirubin Negative (NEG) Urine Urobilinogen Dipstick 1.0 mg/dL (0.2 mg/dL) Urine Leukocyte Esterase Negative (NEG) Urine RBC Occ /HPF (0-2) Urine WBC 1-4 /HPF (0-4) Urine Bacteria 0 /HPF (0-FEW) Urine Cellular Casts Occ /HPF Urine Hyaline Casts Few /HPF Urine Granular Casts Moderate /HPF Urine Waxy Casts Occasional /HPF Urine Mucus Mod /LPF Urine Opiates Screen Neg (NEG) Urine Methadone Screen Neg (NEG) Urine Barbiturates Neg (NEG) Urine Phencyclidine Screen Neg (NEG) Urine Amphetamine/Methamphetamine Neg (NEG) Urine Benzodiazepines Screen Pos (NEG) Urine Cocaine Screen Neg (NEG) Urine Cannabinoids Screen Neg (NEG) Urine Ethyl Alcohol Neg (NEG) White Blood Count 22.7 x10^3/uL (4.0-11.0) Red Blood Count 4.95 x10^6/uL (4.30-5.70) Hemoglobin 15.2 g/dL (13.0-17.5) Hematocrit 45.7 % (39.0-53.0) Mean Corpuscular Volume 92 fL (79-100) Mean Corpuscular Hemoglobin 31 pg (25-35) Mean Corpuscular Hemoglobin Concent 33 g/dL (31-37) Red Cell Distribution Width 13.6 % (11.5-14.5) Platelet Count 296 x10^3/uL (140-400) Neutrophils (%) (Auto) 82 % (31-73) Lymphocytes (%) (Auto) 10 % (24-48) Monocytes (%) (Auto) 7 % (0-9) Eosinophils (%) (Auto) 0 % (0-3) Basophils (%) (Auto) 0 % (0-3) Neutrophils # (Auto) 18.7 x10^3/uL (1.8-7.7) Lymphocytes # (Auto) 2.4 x10^3/uL (1.0-4.8) Monocytes # (Auto) 1.6 x10^3/uL (0.0-1.1) Eosinophils # (Auto) 0.0 x10^3/uL (0.0-0.7) Basophils # (Auto) 0.1 x10^3/uL (0.0-0.2) Sodium Level 139 mmol/L (136-145) Potassium Level 3.7 mmol/L (3.5-5.1) Chloride Level 105 mmol/L (98-107) Carbon Dioxide Level 23 mmol/L (21-32) Anion Gap 11 (6-14) Blood Urea Nitrogen 27 mg/dL (8-26) Creatinine 0.9 mg/dL (0.7-1.3) Estimated GFR (Cockcroft-Gault) 85.2 BUN/Creatinine Ratio 30 (6-20) Glucose Level 153 mg/dL (70-99) Calcium Level 8.4 mg/dL (8.5-10.1) Total Bilirubin 0.8 mg/dL (0.2-1.0) Aspartate Amino Transf (AST/SGOT) 143 U/L (15-37) Alanine Aminotransferase (ALT/SGPT) 196 U/L (16-63) Alkaline Phosphatase 67 U/L (46-116) Total Protein 6.4 g/dL (6.4-8.2) Albumin 2.9 g/dL (3.4-5.0) Albumin/Globulin Ratio 0.8 (1.0-1.7) Triglycerides Level 66 mg/dL (0-150) Cholesterol Level 125 mg/dL (0-200) LDL Cholesterol, Calculated 54 mg/dL (0-100) VLDL Cholesterol, Calculated 13 mg/dL (0-40) Non-HDL Cholesterol Calculated 67 mg/dL (0-129) HDL Cholesterol 58 mg/dL (40-60) Cholesterol/HDL Ratio 2.2 Thyroid Stimulating Hormone (TSH) 0.645 uIU/mL (0.358-3.74) Test 01/14/20 06:11 01/14/20 08:40 01/14/20 11:53 01/14/20 12:25 Glucose (Fingerstick) 145 mg/dL (70-99) 149 mg/dL (70-99) O2 Saturation 96 % (92-99) Arterial Blood pH 7.56 (7.35-7.45) Arterial Blood pH (Temp corrected) 7.52 Arterial Blood pCO2 at Patient Temp 26 mmHg (35-46) Arterial Blood pCO2 (Temp correct) 29 mmHg Arterial Blood pO2 at Patient Temp 77 mmHg (65-108) Arterial Blood pO2 (Temp corrected) 89 mmHg Arterial Blood HCO3 23 mmol/L (21-28) Arterial Blood Base Excess 2 mmol/L (-3-3) FiO2 40 Heparin Anti-Xa Act, Unfractionated 0.61 IU/mL (0.30-0.70) Assessment and Plan Assessmemt and Plan Problems Medical Problems: (1) Cardiac arrest Status: Acute Comment Review of Relevant I have reviewed the following items france (where applicable) has been applied. Labs Laboratory Tests Test 01/13/20 06:10 01/13/20 07:32 01/13/20 11:40 01/13/20 18:29 White Blood Count 21.9 x10^3/uL (4.0-11.0) Red Blood Count 5.20 x10^6/uL (4.30-5.70) Hemoglobin 15.9 g/dL (13.0-17.5) Hematocrit 47.6 % (39.0-53.0) Mean Corpuscular Volume 92 fL (79-100) Mean Corpuscular Hemoglobin 31 pg (25-35) Mean Corpuscular Hemoglobin Concent 33 g/dL (31-37) Red Cell Distribution Width 13.0 % (11.5-14.5) Platelet Count 325 x10^3/uL (140-400) Neutrophils (%) (Auto) 87 % (31-73) Lymphocytes (%) (Auto) 7 % (24-48) Monocytes (%) (Auto) 6 % (0-9) Eosinophils (%) (Auto) 0 % (0-3) Basophils (%) (Auto) 0 % (0-3) Neutrophils # (Auto) 19.0 x10^3/uL (1.8-7.7) Lymphocytes # (Auto) 1.4 x10^3/uL (1.0-4.8) Monocytes # (Auto) 1.4 x10^3/uL (0.0-1.1) Eosinophils # (Auto) 0.0 x10^3/uL (0.0-0.7) Basophils # (Auto) 0.0 x10^3/uL (0.0-0.2) Segmented Neutrophils % 63 % (35-66) Band Neutrophils % 23 % (0-9) Lymphocytes % 6 % (24-48) Monocytes % 8 % (0-10) Platelet Estimate Adequate (ADEQUATE) Sodium Level 140 mmol/L (136-145) Potassium Level 3.7 mmol/L (3.5-5.1) Chloride Level 106 mmol/L (98-107) Carbon Dioxide Level 22 mmol/L (21-32) Anion Gap 12 (6-14) Blood Urea Nitrogen 31 mg/dL (8-26) Creatinine 1.3 mg/dL (0.7-1.3) Estimated GFR (Cockcroft-Gault) 55.8 Glucose Level 170 mg/dL (70-99) Calcium Level 8.3 mg/dL (8.5-10.1) Magnesium Level 1.5 mg/dL (1.8-2.4) O2 Saturation 99 % (92-99) Arterial Blood pH 7.45 (7.35-7.45) Arterial Blood pCO2 at Patient Temp 35 mmHg (35-46) Arterial Blood pO2 at Patient Temp 231 mmHg (65-108) Arterial Blood HCO3 24 mmol/L (21-28) Arterial Blood Base Excess 0 mmol/L (-3-3) FiO2 60 Troponin I Quantitative 7.581 ng/mL (0.000-0.055) Glucose (Fingerstick) 158 mg/dL (70-99) Test 01/13/20 23:44 01/14/20 00:15 01/14/20 06:10 01/14/20 06:11 Glucose (Fingerstick) 171 mg/dL (70-99) 145 mg/dL (70-99) Heparin Anti-Xa Act, Unfractionated 0.36 IU/mL (0.30-0.70) 0.19 IU/mL (0.30-0.70) Urine Collection Type Unknown Urine Color Yellow Urine Clarity Clear Urine pH 6.5 (<5.0-8.0) Urine Specific [place] 1.020 (1.000-1.030) Urine Protein 30 mg/dL (NEG-TRACE) Urine Glucose (UA) Negative mg/dL (NEG) Urine Ketones (Stick) Trace mg/dL (NEG) Urine Blood Moderate (NEG) Urine Nitrite Negative (NEG) Urine Bilirubin Negative (NEG) Urine Urobilinogen Dipstick 1.0 mg/dL (0.2 mg/dL) Urine Leukocyte Esterase Negative (NEG) Urine RBC Occ /HPF (0-2) Urine WBC 1-4 /HPF (0-4) Urine Bacteria 0 /HPF (0-FEW) Urine Cellular Casts Occ /HPF Urine Hyaline Casts Few /HPF Urine Granular Casts Moderate /HPF Urine Waxy Casts Occasional /HPF Urine Mucus Mod /LPF Urine Opiates Screen Neg (NEG) Urine Methadone Screen Neg (NEG) Urine Barbiturates Neg (NEG) Urine Phencyclidine Screen Neg (NEG) Urine Amphetamine/Methamphetamine Neg (NEG) Urine Benzodiazepines Screen Pos (NEG) Urine Cocaine Screen Neg (NEG) Urine Cannabinoids Screen Neg (NEG) Urine Ethyl Alcohol Neg (NEG) White Blood Count 22.7 x10^3/uL (4.0-11.0) Red Blood Count 4.95 x10^6/uL (4.30-5.70) Hemoglobin 15.2 g/dL (13.0-17.5) Hematocrit 45.7 % (39.0-53.0) Mean Corpuscular Volume 92 fL (79-100) Mean Corpuscular Hemoglobin 31 pg (25-35) Mean Corpuscular Hemoglobin Concent 33 g/dL (31-37) Red Cell Distribution Width 13.6 % (11.5-14.5) Platelet Count 296 x10^3/uL (140-400) Neutrophils (%) (Auto) 82 % (31-73) Lymphocytes (%) (Auto) 10 % (24-48) Monocytes (%) (Auto) 7 % (0-9) Eosinophils (%) (Auto) 0 % (0-3) Basophils (%) (Auto) 0 % (0-3) Neutrophils # (Auto) 18.7 x10^3/uL (1.8-7.7) Lymphocytes # (Auto) 2.4 x10^3/uL (1.0-4.8) Monocytes # (Auto) 1.6 x10^3/uL (0.0-1.1) Eosinophils # (Auto) 0.0 x10^3/uL (0.0-0.7) Basophils # (Auto) 0.1 x10^3/uL (0.0-0.2) Sodium Level 139 mmol/L (136-145) Potassium Level 3.7 mmol/L (3.5-5.1) Chloride Level 105 mmol/L (98-107) Carbon Dioxide Level 23 mmol/L (21-32) Anion Gap 11 (6-14) Blood Urea Nitrogen 27 mg/dL (8-26) Creatinine 0.9 mg/dL (0.7-1.3) Estimated GFR (Cockcroft-Gault) 85.2 BUN/Creatinine Ratio 30 (6-20) Glucose Level 153 mg/dL (70-99) Calcium Level 8.4 mg/dL (8.5-10.1) Total Bilirubin 0.8 mg/dL (0.2-1.0) Aspartate Amino Transf (AST/SGOT) 143 U/L (15-37) Alanine Aminotransferase (ALT/SGPT) 196 U/L (16-63) Alkaline Phosphatase 67 U/L (46-116) Total Protein 6.4 g/dL (6.4-8.2) Albumin 2.9 g/dL (3.4-5.0) Albumin/Globulin Ratio 0.8 (1.0-1.7) Triglycerides Level 66 mg/dL (0-150) Cholesterol Level 125 mg/dL (0-200) LDL Cholesterol, Calculated 54 mg/dL (0-100) VLDL Cholesterol, Calculated 13 mg/dL (0-40) Non-HDL Cholesterol Calculated 67 mg/dL (0-129) HDL Cholesterol 58 mg/dL (40-60) Cholesterol/HDL Ratio 2.2 Thyroid Stimulating Hormone (TSH) 0.645 uIU/mL (0.358-3.74) Test 01/14/20 08:40 01/14/20 11:53 01/14/20 12:25 O2 Saturation 96 % (92-99) Arterial Blood pH 7.56 (7.35-7.45) Arterial Blood pH (Temp corrected) 7.52 Arterial Blood pCO2 at Patient Temp 26 mmHg (35-46) Arterial Blood pCO2 (Temp correct) 29 mmHg Arterial Blood pO2 at Patient Temp 77 mmHg (65-108) Arterial Blood pO2 (Temp corrected) 89 mmHg Arterial Blood HCO3 23 mmol/L (21-28) Arterial Blood Base Excess 2 mmol/L (-3-3) FiO2 40 Glucose (Fingerstick) 149 mg/dL (70-99) Heparin Anti-Xa Act, Unfractionated 0.61 IU/mL (0.30-0.70) Laboratory Tests Test 01/13/20 18:29 01/13/20 23:44 01/14/20 00:15 01/14/20 06:10 Glucose (Fingerstick) 158 mg/dL (70-99) 171 mg/dL (70-99) Heparin Anti-Xa Act, Unfractionated 0.36 IU/mL (0.30-0.70) 0.19 IU/mL (0.30-0.70) Urine Collection Type Unknown Urine Color Yellow Urine Clarity Clear Urine pH 6.5 (<5.0-8.0) Urine Specific [place] 1.020 (1.000-1.030) Urine Protein 30 mg/dL (NEG-TRACE) Urine Glucose (UA) Negative mg/dL (NEG) Urine Ketones (Stick) Trace mg/dL (NEG) Urine Blood Moderate (NEG) Urine Nitrite Negative (NEG) Urine Bilirubin Negative (NEG) Urine Urobilinogen Dipstick 1.0 mg/dL (0.2 mg/dL) Urine Leukocyte Esterase Negative (NEG) Urine RBC Occ /HPF (0-2) Urine WBC 1-4 /HPF (0-4) Urine Bacteria 0 /HPF (0-FEW) Urine Cellular Casts Occ /HPF Urine Hyaline Casts Few /HPF Urine Granular Casts Moderate /HPF Urine Waxy Casts Occasional /HPF Urine Mucus Mod /LPF Urine Opiates Screen Neg (NEG) Urine Methadone Screen Neg (NEG) Urine Barbiturates Neg (NEG) Urine Phencyclidine Screen Neg (NEG) Urine Amphetamine/Methamphetamine Neg (NEG) Urine Benzodiazepines Screen Pos (NEG) Urine Cocaine Screen Neg (NEG) Urine Cannabinoids Screen Neg (NEG) Urine Ethyl Alcohol Neg (NEG) White Blood Count 22.7 x10^3/uL (4.0-11.0) Red Blood Count 4.95 x10^6/uL (4.30-5.70) Hemoglobin 15.2 g/dL (13.0-17.5) Hematocrit 45.7 % (39.0-53.0) Mean Corpuscular Volume 92 fL (79-100) Mean Corpuscular Hemoglobin 31 pg (25-35) Mean Corpuscular Hemoglobin Concent 33 g/dL (31-37) Red Cell Distribution Width 13.6 % (11.5-14.5) Platelet Count 296 x10^3/uL (140-400) Neutrophils (%) (Auto) 82 % (31-73) Lymphocytes (%) (Auto) 10 % (24-48) Monocytes (%) (Auto) 7 % (0-9) Eosinophils (%) (Auto) 0 % (0-3) Basophils (%) (Auto) 0 % (0-3) Neutrophils # (Auto) 18.7 x10^3/uL (1.8-7.7) Lymphocytes # (Auto) 2.4 x10^3/uL (1.0-4.8) Monocytes # (Auto) 1.6 x10^3/uL (0.0-1.1) Eosinophils # (Auto) 0.0 x10^3/uL (0.0-0.7) Basophils # (Auto) 0.1 x10^3/uL (0.0-0.2) Sodium Level 139 mmol/L (136-145) Potassium Level 3.7 mmol/L (3.5-5.1) Chloride Level 105 mmol/L (98-107) Carbon Dioxide Level 23 mmol/L (21-32) Anion Gap 11 (6-14) Blood Urea Nitrogen 27 mg/dL (8-26) Creatinine 0.9 mg/dL (0.7-1.3) Estimated GFR (Cockcroft-Gault) 85.2 BUN/Creatinine Ratio 30 (6-20) Glucose Level 153 mg/dL (70-99) Calcium Level 8.4 mg/dL (8.5-10.1) Total Bilirubin 0.8 mg/dL (0.2-1.0) Aspartate Amino Transf (AST/SGOT) 143 U/L (15-37) Alanine Aminotransferase (ALT/SGPT) 196 U/L (16-63) Alkaline Phosphatase 67 U/L (46-116) Total Protein 6.4 g/dL (6.4-8.2) Albumin 2.9 g/dL (3.4-5.0) Albumin/Globulin Ratio 0.8 (1.0-1.7) Triglycerides Level 66 mg/dL (0-150) Cholesterol Level 125 mg/dL (0-200) LDL Cholesterol, Calculated 54 mg/dL (0-100) VLDL Cholesterol, Calculated 13 mg/dL (0-40) Non-HDL Cholesterol Calculated 67 mg/dL (0-129) HDL Cholesterol 58 mg/dL (40-60) Cholesterol/HDL Ratio 2.2 Thyroid Stimulating Hormone (TSH) 0.645 uIU/mL (0.358-3.74) Test 01/14/20 06:11 01/14/20 08:40 01/14/20 11:53 01/14/20 12:25 Glucose (Fingerstick) 145 mg/dL (70-99) 149 mg/dL (70-99) O2 Saturation 96 % (92-99) Arterial Blood pH 7.56 (7.35-7.45) Arterial Blood pH (Temp corrected) 7.52 Arterial Blood pCO2 at Patient Temp 26 mmHg (35-46) Arterial Blood pCO2 (Temp correct) 29 mmHg Arterial Blood pO2 at Patient Temp 77 mmHg (65-108) Arterial Blood pO2 (Temp corrected) 89 mmHg Arterial Blood HCO3 23 mmol/L (21-28) Arterial Blood Base Excess 2 mmol/L (-3-3) FiO2 40 Heparin Anti-Xa Act, Unfractionated 0.61 IU/mL (0.30-0.70) Medications Current Medications Heparin Sodium/ Sodium Chloride 0 ml @ As Directed STK-MED ONCE .ROUTE ; Start 01/12/20 at 12:25; Stop 01/12/20 at 12:25; Status DC Fentanyl Citrate (Fentanyl 2ml Vial) 100 mcg STK-MED ONCE .ROUTE ; Start 01/12/20 at 12:26; Stop 01/12/20 at 12:26; Status DC Midazolam HCl (Versed) 2 mg STK-MED ONCE .ROUTE ; Start 01/12/20 at 12:26; Stop 01/12/20 at 12:26; Status DC Iodixanol (Visipaque 320) 100 ml STK-MED ONCE .ROUTE ; Start 01/12/20 at 12:26; Stop 01/12/20 at 12:26; Status DC Lidocaine HCl (Lidocaine 1% 20ml Vial) 20 ml STK-MED ONCE .ROUTE ; Start 01/12/20 at 12:26; Stop 01/12/20 at 12:27; Status DC Amiodarone HCl 450 mg/Dextrose 259 ml @ 0 mls/hr CONT PRN IV SEE I/O RECORD; Start 01/12/20 at 12:45; Status UNV Amiodarone HCl 450 mg/Dextrose 259 ml @ 33 mls/hr CONT PRN IV SEE I/O RECORD Last administered on 01/13/20at 03:07; Start 01/12/20 at 12:45; Stop 01/13/20 at 03:07; Status DC Fentanyl Citrate (Fentanyl 2ml Vial) 100 mcg 1X ONCE IV Last administered on 01/12/20at 12:54; Start 01/12/20 at 13:00; Stop 01/12/20 at 13:01; Status DC Midazolam HCl (Versed) 2 mg 1X ONCE IV Last administered on 01/12/20at 12:54; Start 01/12/20 at 13:00; Stop 01/12/20 at 13:01; Status DC Magnesium Sulfate/ Dextrose 100 ml @ 100 mls/hr 1X ONCE IV ; Start 01/12/20 at 13:00; Stop 01/12/20 at 13:59; Status DC Buspirone HCl (Buspar) 30 mg Q8H NG ; Start 01/12/20 at 13:00; Stop 01/12/20 at 17:03; Status DC Acetaminophen (Tylenol) 650 mg Q4H NG ; Start 01/12/20 at 13:00; Stop 01/12/20 at 21:13; Status DC Acetaminophen (Tylenol Supp) 650 mg PRN Q4HRS PRN IL IF NO NG DOSE GIVEN Last administered on 01/14/20at 09:07; Start 01/12/20 at 12:45 Artificial Tears (Artificial Tears) 1 drop Q6HRS OU ; Start 01/12/20 at 18:00; Stop 01/12/20 at 21:13; Status DC Artificial Tears (Artificial Tears) 1 drop PRN Q15MIN PRN OU DRY EYE Last administered on 01/14/20at 13:16; Start 01/12/20 at 12:45 Heparin Sodium (Porcine) (Heparin Sodium) 5,000 unit BID SQ Last administered on 01/12/20at 21:19; Start 01/12/20 at 21:00; Stop 01/13/20 at 15:08; Status DC Pantoprazole Sodium (PROTONIX VIAL for IV PUSH) 40 mg DAILY IVP ; Start 01/13/20 at 09:00; Stop 01/12/20 at 17:03; Status DC Fentanyl Citrate 30 ml @ 0 mls/hr CONT PRN IV PER PROTOCOL.; Start 01/12/20 at 12:45 Propofol 100 ml @ 0 mls/hr CONT PRN IV PER PROTOCOL.; Start 01/12/20 at 12:45 Midazolam HCl 100 ml @ 0 mls/hr CONT PRN IV PER PROTOCOL. Last administered on 01/12/20at 13:32; Start 01/12/20 at 12:45 Vecuronium Allen (Norcuron Bolus) 10 mg PRN Q1HR PRN IV SHIVERING; Start 01/12/20 at 12:45 Fentanyl Citrate 30 ml @ 0 mls/hr CONT PRN IV SEE PROTOCOL; Start 01/12/20 at 13:00; Status UNV Fentanyl Citrate (Fentanyl 2ml Vial) 25 mcg PRN Q1HR PRN IV SEE COMMENTS; Start 01/12/20 at 13:00 Fentanyl Citrate (Fentanyl 2ml Vial) 50 mcg PRN Q1HR PRN IV SEE COMMENTS Last administered on 01/13/20at 06:06; Start 01/12/20 at 13:00 Chlorhexidine Gluconate (Peridex) 15 ml BID MM ; Start 01/12/20 at 21:00; Stop 01/12/20 at 17:03; Status DC Midazolam HCl 100 ml @ 0 mls/hr CONT PRN IV SEE PROTOCOL; Start 01/12/20 at 13:00; Status UNV Potassium Chloride/Water 100 ml @ 50 mls/hr 1X ONCE IV Last administered on 01/12/20at 14:00; Start 01/12/20 at 14:00; Stop 01/12/20 at 15:59; Status DC Dopamine HCl/ Dextrose 250 ml @ 17.944 mls/ hr CONT PRN PRN IV SEE PROTOCOL; Start 01/12/20 at 16:49 Famotidine (Pepcid Vial) 20 mg BID IVP Last administered on 01/14/20at 09:07; Start 01/12/20 at 21:00 Potassium Chloride/Water 100 ml @ 100 mls/hr Q1H IV Last administered on 01/12/20at 20:26; Start 01/12/20 at 17:30; Stop 01/12/20 at 19:29; Status DC Sodium Chloride 1,000 ml @ 100 mls/hr Q10H IV Last administered on 01/14/20at 11:43; Start 01/12/20 at 18:30 Acetaminophen (Tylenol) 650 mg PRN Q6HRS PRN PEG MILD PAIN / TEMP > 100.3'F Last administered on 01/13/20at 04:16; Start 01/13/20 at 04:15 Magnesium Sulfate/ Dextrose 100 ml @ 100 mls/hr 1X ONCE IV Last administered on 01/13/20at 07:59; Start 01/13/20 at 08:00; Stop 01/13/20 at 08:59; Status DC Nicardipine HCl 50 mg/Sodium Chloride 250 ml @ 25 mls/hr CONT PRN IV SEE I/O RECORD Last administered on 01/14/20at 00:22; Start 01/13/20 at 09:00 Amiodarone HCl 450 mg/Dextrose 259 ml @ 17 mls/hr CONT PRN IV SEE I/O RECORD Last administered on 01/14/20at 06:13; Start 01/13/20 at 11:30 Insulin Human Lispro (HumaLOG) 0-7 UNITS Q6HRS SQ ; Start 01/13/20 at 13:15 Dextrose (Dextrose 50%-Water Syringe) 12.5 gm PRN Q15MIN PRN IV SEE COMMENTS; Start 01/13/20 at 13:15 Heparin Sodium/ Dextrose 250 ml @ 0 mls/hr CONT PRN IV PER PROTOCOL Last administered on 01/14/20at 11:50; Start 01/13/20 at 15:30 Heparin Sodium (Porcine) (Heparin Sodium) 2,300 unit PRN Q6HRS PRN IV FOR UFH LEVEL LESS THAN 0.2 Last administered on 01/14/20at 07:56; Start 01/13/20 at 15:30 Amiodarone HCl 450 mg/Dextrose 259 ml @ 0 mls/hr DAILY IV ; Start 01/13/20 at 15:45; Status UNV Aspirin (Ecotrin) 81 mg DAILYWBKFT PO ; Start 01/14/20 at 15:00 Active Scripts Active Reported Vitamin D3 Complete Caplet (Mv-Mn/Iron/Fa/Herbal Cmplx#190) 1 Each Tablet 1 Each PO BID Metformin Hcl 1,000 Mg Tablet 1,000 Mg PO BIDWMEALS Adult Low Dose Aspirin Ec (Aspirin) 81 Mg Tablet.dr 81 Mg PO DAILY Metoprolol Tartrate 25 Mg Tablet 25 Mg PO BID Lisinopril 20 Mg Tablet 20 Mg PO DAILY Plavix (Clopidogrel Bisulfate) 75 Mg Tablet 75 Mg PO DAILY Atorvastatin Calcium 80 Mg Tablet 80 Mg PO DAILY Fish Oil 1,200 Mg Fish Oil (Fish Oil/Dha/Epa) 1 Each Capsule 2,400 Mg PO DAILY Vitals/I & O Vital Sign - Last 24 Hours 01/13/20 01/13/20 01/13/20 01/13/20 18:00 19:00 20:00 20:00 Temp 100.3 100.3 Pulse 120 120 115 Resp 26 26 26 B/P (MAP) 159/81 (107) 152/74 (100) 152/78 (102) Pulse Ox 98 98 99 O2 Delivery Ventilator Ventilator Ventilator Mechanical Ventilator 01/13/20 01/13/20 01/13/20 01/13/20 20:25 21:00 21:51 22:00 Pulse 112 110 B/P (MAP) 153/79 (103) 144/77 (99) Pulse Ox 96 99 96 98 O2 Delivery Ventilator Ventilator Ventilator Ventilator 01/13/20 01/13/20 01/14/20 01/14/20 23:00 23:20 00:00 00:00 Temp 101.3 101.3 Pulse 110 105 Resp B/P (MAP) 147/80 (102) 146/78 (100) Pulse Ox 98 96 99 O2 Delivery Ventilator Ventilator Ventilator Mechanical Ventilator 01/14/20 01/14/20 01/14/20 01/14/20 01:00 01:02 02:00 03:00 Pulse 107 105 104 Resp B/P (MAP) 141/75 (97) 142/75 (97) 143/75 (97) Pulse Ox 99 96 100 100 O2 Delivery Ventilator Ventilator Ventilator Ventilator 01/14/20 01/14/20 01/14/20 01/14/20 04:00 04:00 04:22 05:00 Temp 100.9 100.9 Pulse 102 101 B/P (MAP) 142/72 (95) 141/72 (95) Pulse Ox 100 96 100 O2 Delivery Mechanical Ventilator Ventilator Ventilator Ventilator 01/14/20 01/14/20 01/14/20 01/14/20 06:00 07:00 08:14 08:15 Temp 102.4 102.4 Pulse 97 94 95 Resp 29 B/P (MAP) 133/71 (91) 114/67 (83) 118/69 (85) Pulse Ox 98 98 97 98 O2 Delivery Ventilator Ventilator Ventilator Ventilator 01/14/20 01/14/20 01/14/20 01/14/20 08:23 09:11 10:11 11:14 Temp 102.7 102.7 Pulse 90 90 90 Resp 24 24 B/P (MAP) 123/60 (81) 116/65 (82) 106/58 (74) Pulse Ox 100 97 95 O2 Delivery Mechanical Ventilator Ventilator Ventilator Ventilator 01/14/20 01/14/20 01/14/20 01/14/20 11:52 12:15 12:40 13:12 Pulse 90 87 Resp 24 B/P (MAP) 109/61 (77) 123/65 (84) Pulse Ox 98 99 O2 Delivery Ventilator Mechanical Ventilator Ventilator 01/14/20 01/14/20 01/14/20 01/14/20 14:02 15:34 16:00 16:00 Temp 101.7 101.7 Pulse 99 84 81 Resp 27 27 26 B/P (MAP) 147/81 (103) 138/72 (94) 143/75 (97) Pulse Ox 99 95 97 O2 Delivery Ventilator Ventilator Ventilator Mechanical Ventilator 01/14/20 01/14/20 16:04 17:29 Pulse 75 Resp 26 B/P (MAP) 147/76 (99) Pulse Ox 96 97 O2 Delivery Ventilator Ventilator Intake and Output 01/13/20 01/13/20 01/14/20 15:00 23:00 07:00 Intake Total 1399 ml 1802.9 ml Output Total 750 ml 2075 ml 1225 ml Balance -750 ml -676 ml 577.9 ml BERRY VENTURA MD January 14, 2020 17:53
[2020-01-14] MEDS: fentaNYL PF VIAL 100 MCG/2 ML VIAL IV PRN (21:00)
[2020-01-15] VITALS (29 sets, daily range): BP systolic 123–193; BP diastolic 55–87
[2020-01-15] MEDS: ACETAMINOPHEN 650 MG SUPP.RECT. PR PRN ×3 (02:30→13:13)
[2020-01-15] MEDS: INSULIN LISPRO 300 UNITS/3 ML VIAL. SQ SCH ×5 (05:24→23:51)
[2020-01-15] MEDS: HEPARIN 25,000UTS/250ML PREMIX 250 ML IV PRN (06:35)
--- NOTE | 2020-01-15 07:14 | RAD ---
EXAM: Chest, single view. HISTORY: Respiratory failure. COMPARISON: 01/14/2020 FINDINGS: A frontal view of the chest is obtained. There is slight increased left lower lobe infiltrate or atelectasis. There is no pleural effusion or pneumothorax. The heart is normal in size. There is a nasogastric tube within the stomach. There is a right subclavian catheter with the tip in the superior cavoatrial junction. There is an endotracheal tube within the mid trachea. IMPRESSION: 1. Slight increased left lower lobe atelectasis or interstitial infiltrate. 2. Support lines and tubes, described above. Electronically signed by: Keke Nuno MD (01/15/2020 7:11 AM) [id number]
[2020-01-15] MEDS ORDERED: ASPIRIN CHEWABLE 81 MG TABLET. PO SCH (08:00)
[2020-01-15] MEDS: FAMOTIDINE 20 MG/2 ML VIAL IVP SCH ×2 (08:02→21:22)
[2020-01-15] MEDS: IV NORMAL SALINE 1000ML BAG 1,000 ML IV SCH ×2 (08:08→17:29)
[2020-01-15 08:18] LABS: BASE EXCESS ABG 0 mmol/L (-3-3); HCO3 ABG 22 mmol/L (21-28); PCO2 ABG 29 mmHg (35-46); PO2 ABG 96 mmHg (65-108); SAT O2 ABG 98 % (92-99)
[2020-01-15 08:24] LABS: BASO # 0.1 x10^3/uL (0.0-0.2); BASO % 1 % (0-3); EOS % 0 % (0-3); HEMATOCRIT 41.7 % (39.0-53.0); HEMOGLOBIN 13.8 g/dL (13.0-17.5); LYMPH # 2.3 x10^3/uL (1.0-4.8); LYMPH % 11 % (24-48); MEAN CORPUSCULAR HEMOGLOBIN 30 pg (25-35); MEAN CORPUSCULAR HGB CONC 33 g/dL (31-37); MEAN CORPUSCULAR VOLUME 92 fL (79-100); MONO # 1.7 x10^3/uL (0.0-1.1); MONO % 8 % (0-9); NEUT # 17.4 x10^3/uL (1.8-7.7); NEUT % 81 % (31-73); PLATELET COUNT 257 x10^3/uL (140-400); RED BLOOD COUNT 4.53 x10^6/uL (4.30-5.70); WHITE BLOOD COUNT 21.5 x10^3/uL (4.0-11.0)
--- NOTE | 2020-01-15 08:26 | PDOC ---
PULMONARY PROGRESS NOTES Subjective Patient on assist control ventilation, does assist the ventilator Vitals Vital Signs Date Time Temp Pulse Resp B/P (MAP) Pulse Ox O2 Delivery O2 Flow Rate FiO2 01/15/20 07:49 100 Ventilator 01/15/20 06:55 102.0 68 21 155/76 (102) 102.0 Comments intubated AC mode Lungs: Clear Cardiovascular: S1 Abdomen: Soft Extremities: Other (trace edema) Impression Upward Gaze, doesn't follow commands/ not on sedation Labs Laboratory Tests Test 01/13/20 11:40 01/13/20 18:29 01/13/20 23:44 01/14/20 00:15 Troponin I Quantitative 7.581 ng/mL (0.000-0.055) Glucose (Fingerstick) 158 mg/dL (70-99) 171 mg/dL (70-99) Heparin Anti-Xa Act, Unfractionated 0.36 IU/mL (0.30-0.70) Urine Collection Type Unknown Urine Color Yellow Urine Clarity Clear Urine pH 6.5 (<5.0-8.0) Urine Specific [place] 1.020 (1.000-1.030) Urine Protein 30 mg/dL (NEG-TRACE) Urine Glucose (UA) Negative mg/dL (NEG) Urine Ketones (Stick) Trace mg/dL (NEG) Urine Blood Moderate (NEG) Urine Nitrite Negative (NEG) Urine Bilirubin Negative (NEG) Urine Urobilinogen Dipstick 1.0 mg/dL (0.2 mg/dL) Urine Leukocyte Esterase Negative (NEG) Urine RBC Occ /HPF (0-2) Urine WBC 1-4 /HPF (0-4) Urine Bacteria 0 /HPF (0-FEW) Urine Cellular Casts Occ /HPF Urine Hyaline Casts Few /HPF Urine Granular Casts Moderate /HPF Urine Waxy Casts Occasional /HPF Urine Mucus Mod /LPF Urine Opiates Screen Neg (NEG) Urine Methadone Screen Neg (NEG) Urine Barbiturates Neg (NEG) Urine Phencyclidine Screen Neg (NEG) Urine Amphetamine/Methamphetamine Neg (NEG) Urine Benzodiazepines Screen Pos (NEG) Urine Cocaine Screen Neg (NEG) Urine Cannabinoids Screen Neg (NEG) Urine Ethyl Alcohol Neg (NEG) Test 01/14/20 06:10 01/14/20 06:11 01/14/20 08:40 01/14/20 11:53 White Blood Count 22.7 x10^3/uL (4.0-11.0) Red Blood Count 4.95 x10^6/uL (4.30-5.70) Hemoglobin 15.2 g/dL (13.0-17.5) Hematocrit 45.7 % (39.0-53.0) Mean Corpuscular Volume 92 fL (79-100) Mean Corpuscular Hemoglobin 31 pg (25-35) Mean Corpuscular Hemoglobin Concent 33 g/dL (31-37) Red Cell Distribution Width 13.6 % (11.5-14.5) Platelet Count 296 x10^3/uL (140-400) Neutrophils (%) (Auto) 82 % (31-73) Lymphocytes (%) (Auto) 10 % (24-48) Monocytes (%) (Auto) 7 % (0-9) Eosinophils (%) (Auto) 0 % (0-3) Basophils (%) (Auto) 0 % (0-3) Neutrophils # (Auto) 18.7 x10^3/uL (1.8-7.7) Lymphocytes # (Auto) 2.4 x10^3/uL (1.0-4.8) Monocytes # (Auto) 1.6 x10^3/uL (0.0-1.1) Eosinophils # (Auto) 0.0 x10^3/uL (0.0-0.7) Basophils # (Auto) 0.1 x10^3/uL (0.0-0.2) Heparin Anti-Xa Act, Unfractionated 0.19 IU/mL (0.30-0.70) Sodium Level 139 mmol/L (136-145) Potassium Level 3.7 mmol/L (3.5-5.1) Chloride Level 105 mmol/L (98-107) Carbon Dioxide Level 23 mmol/L (21-32) Anion Gap 11 (6-14) Blood Urea Nitrogen 27 mg/dL (8-26) Creatinine 0.9 mg/dL (0.7-1.3) Estimated GFR (Cockcroft-Gault) 85.2 BUN/Creatinine Ratio 30 (6-20) Glucose Level 153 mg/dL (70-99) Calcium Level 8.4 mg/dL (8.5-10.1) Total Bilirubin 0.8 mg/dL (0.2-1.0) Aspartate Amino Transf (AST/SGOT) 143 U/L (15-37) Alanine Aminotransferase (ALT/SGPT) 196 U/L (16-63) Alkaline Phosphatase 67 U/L (46-116) Total Protein 6.4 g/dL (6.4-8.2) Albumin 2.9 g/dL (3.4-5.0) Albumin/Globulin Ratio 0.8 (1.0-1.7) Triglycerides Level 66 mg/dL (0-150) Cholesterol Level 125 mg/dL (0-200) LDL Cholesterol, Calculated 54 mg/dL (0-100) VLDL Cholesterol, Calculated 13 mg/dL (0-40) Non-HDL Cholesterol Calculated 67 mg/dL (0-129) HDL Cholesterol 58 mg/dL (40-60) Cholesterol/HDL Ratio 2.2 Thyroid Stimulating Hormone (TSH) 0.645 uIU/mL (0.358-3.74) Glucose (Fingerstick) 145 mg/dL (70-99) 149 mg/dL (70-99) O2 Saturation 96 % (92-99) Arterial Blood pH 7.56 (7.35-7.45) Arterial Blood pH (Temp corrected) 7.52 Arterial Blood pCO2 at Patient Temp 26 mmHg (35-46) Arterial Blood pCO2 (Temp correct) 29 mmHg Arterial Blood pO2 at Patient Temp 77 mmHg (65-108) Arterial Blood pO2 (Temp corrected) 89 mmHg Arterial Blood HCO3 23 mmol/L (21-28) Arterial Blood Base Excess 2 mmol/L (-3-3) FiO2 40 Test 01/14/20 12:25 01/14/20 23:00 01/14/20 23:02 01/15/20 05:15 Heparin Anti-Xa Act, Unfractionated 0.61 IU/mL (0.30-0.70) 0.48 IU/mL (0.30-0.70) 0.32 IU/mL (0.30-0.70) Glucose (Fingerstick) 163 mg/dL (70-99) Test 01/15/20 05:23 Glucose (Fingerstick) 142 mg/dL (70-99) Laboratory Tests Test 01/14/20 08:40 01/14/20 11:53 01/14/20 12:25 01/14/20 23:00 O2 Saturation 96 % (92-99) Arterial Blood pH 7.56 (7.35-7.45) Arterial Blood pH (Temp corrected) 7.52 Arterial Blood pCO2 at Patient Temp 26 mmHg (35-46) Arterial Blood pCO2 (Temp correct) 29 mmHg Arterial Blood pO2 at Patient Temp 77 mmHg (65-108) Arterial Blood pO2 (Temp corrected) 89 mmHg Arterial Blood HCO3 23 mmol/L (21-28) Arterial Blood Base Excess 2 mmol/L (-3-3) FiO2 40 Glucose (Fingerstick) 149 mg/dL (70-99) Heparin Anti-Xa Act, Unfractionated 0.61 IU/mL (0.30-0.70) 0.48 IU/mL (0.30-0.70) Test 01/14/20 23:02 01/15/20 05:15 01/15/20 05:23 Glucose (Fingerstick) 163 mg/dL (70-99) 142 mg/dL (70-99) Heparin Anti-Xa Act, Unfractionated 0.32 IU/mL (0.30-0.70) Medications Active Scripts Medications Dose Route/Sig Max Daily Dose Days Date Category Vitamin D3 Complete [place] (Mv-Mn/Iron/Fa/Herbal Cmplx#190) 1 Each Tablet 1 Each PO BID 01/13/20 Reported Metformin Hcl 1,000 Mg Tablet 1,000 Mg PO BIDWMEALS 01/13/20 Reported Adult Low Dose Aspirin Ec (Aspirin) 81 Mg Tablet.dr 81 Mg PO DAILY 08/21/13 Reported Metoprolol Tartrate 25 Mg Tablet 25 Mg PO BID 08/21/13 Reported Lisinopril 20 Mg Tablet 20 Mg PO DAILY 08/21/13 Reported Plavix (Clopidogrel Bisulfate) 75 Mg Tablet 75 Mg PO DAILY 08/21/13 Reported Atorvastatin Calcium 80 Mg Tablet 80 Mg PO DAILY 08/21/13 Reported Fish Oil 1,200 Mg Fish Oil (Fish Oil/Dha/Epa) 1 Each Capsule 2,400 Mg PO DAILY 08/21/13 Reported Comments CXR: 01/13/20 IMPRESSION: Stable endotracheal intubation with no pneumothorax or other acute complications. Impression . IMPRESSION: 1. Acute hypoxic and hypercapnic respiratory failure secondary to cardiac arrest. 2. Cardiac arrest with V-fib and V-tach. Status post CPR and ACLS protocol for approximately 50 minutes. 3. History of underlying coronary artery disease and suspected non-ST myocardial infarction. 4. Abnormal chest x-ray with faint basal atelectasis or infiltrate. 5. Anoxic encephalopathy due to prolonged CPR. 6. Coffee-ground aspirate from NG tube 7. Likely underlying chronic obstructive pulmonary disease. 8. Abnormal ct head with suspected small ischemic infarct 9. Shock Liver 10. Hypertension Plan . We will continue current support, very poor prognosis 1. Continue with present assist control mode and make changes based on ABGs- reduce FI02 to 40%. and PEEP 5 2. Follow cardiology recommendations. Need for any cardiac intervention per cardiology. 3. The patient has abnormal CT head with ischemic infarct---was not a candidate for hypothermic protocol. 4. Monitor renal output. 5. The patient has shock liver. Need to monitor LFTs. 6. off sedation . 7. Anticoagulation per Cardiology. 8. Continue amiodarone per Cardiology. 9. Follow neurology input Total cumulative critical care time more than 35 minutes, reviewing data, chest x-ray, labs, and formulating a plan ZELDA MANNING MD January 15, 2020 08:26
[2020-01-15 08:37] LABS: ALBUMIN 2.6 g/dL (3.4-5.0); ALBUMIN/GLOBULIN RATIO 0.7 (1.0-1.7); CALCIUM 8.1 mg/dL (8.5-10.1); CREATININE 0.9 mg/dL (0.7-1.3); GFR 85.2; POTASSIUM 3.5 mmol/L (3.5-5.1); TOTAL BILIRUBIN 1.1 mg/dL (0.2-1.0); TOTAL PROTEIN 6.1 g/dL (6.4-8.2)
[2020-01-15 09:05] LABS: CORRECTED PCO2 ABG 32 mmHg; CORRECTED PH ABG 7.46; CORRECTED PO2 ABG 106 mmHg; FIO2 ABG 40%+5
--- NOTE | 2020-01-15 10:04 | PDOC ---
PROGRESS NOTES Assessment Problems Medical Problems: (1) Cardiac arrest Status: Acute Anoxic encephalopathy, status-post V. tach cardiac arrest, hypothermia protocol was not used. Worse today EEG 01/13 shows severe diffuse slowing of background, no seizures Possible posterior right parietal lobe acute or subacute infarct, I am not impressed with the findings. He could have had an infarct during the resuscitations. Plan Continue supportive care Okay for heparin regarding cardiac issues Hold on brain MRI Prognosis is guarded. Discussed with patient's , agrees DNR Subjective none Objective Vital Signs Date Time Temp Pulse Resp B/P (MAP) Pulse Ox O2 Delivery O2 Flow Rate FiO2 01/15/20 09:15 102.2 70 24 175/76 (109) 99 Ventilator 102.2 Intake and Output 01/15/20 06:59 Intake Total 3522 ml Output Total 2494 ml Balance 1028 ml IV Total 3122 ml Tube Feeding 400 ml Output Urine Total 1494 ml Gastric Drainage Total 1000 ml PHYSICAL EXAM On ventilator, triggers vent No pupillary response No oculocephalic response CN: no focal findings. Muscle tone: normal. Muscle strength: no withdrawal to pain DTR: 0+ Plantar reflex: silent Gait: not examined Sensory exam: not tested. Cerebellar: not tested Review of Relevant I have reviewed the following items [place] (where applicable) has been applied. Labs Laboratory Tests Test 01/13/20 11:40 01/13/20 18:29 01/13/20 23:44 01/14/20 00:15 Troponin I Quantitative 7.581 ng/mL (0.000-0.055) Glucose (Fingerstick) 158 mg/dL (70-99) 171 mg/dL (70-99) Heparin Anti-Xa Act, Unfractionated 0.36 IU/mL (0.30-0.70) Urine Collection Type Unknown Urine Color Yellow Urine Clarity Clear Urine pH 6.5 (<5.0-8.0) Urine Specific [place] 1.020 (1.000-1.030) Urine Protein 30 mg/dL (NEG-TRACE) Urine Glucose (UA) Negative mg/dL (NEG) Urine Ketones (Stick) Trace mg/dL (NEG) Urine Blood Moderate (NEG) Urine Nitrite Negative (NEG) Urine Bilirubin Negative (NEG) Urine Urobilinogen Dipstick 1.0 mg/dL (0.2 mg/dL) Urine Leukocyte Esterase Negative (NEG) Urine RBC Occ /HPF (0-2) Urine WBC 1-4 /HPF (0-4) Urine Bacteria 0 /HPF (0-FEW) Urine Cellular Casts Occ /HPF Urine Hyaline Casts Few /HPF Urine Granular Casts Moderate /HPF Urine Waxy Casts Occasional /HPF Urine Mucus Mod /LPF Urine Opiates Screen Neg (NEG) Urine Methadone Screen Neg (NEG) Urine Barbiturates Neg (NEG) Urine Phencyclidine Screen Neg (NEG) Urine Amphetamine/Methamphetamine Neg (NEG) Urine Benzodiazepines Screen Pos (NEG) Urine Cocaine Screen Neg (NEG) Urine Cannabinoids Screen Neg (NEG) Urine Ethyl Alcohol Neg (NEG) Test 01/14/20 06:10 01/14/20 06:11 01/14/20 08:40 01/14/20 11:53 White Blood Count 22.7 x10^3/uL (4.0-11.0) Red Blood Count 4.95 x10^6/uL (4.30-5.70) Hemoglobin 15.2 g/dL (13.0-17.5) Hematocrit 45.7 % (39.0-53.0) Mean Corpuscular Volume 92 fL (79-100) Mean Corpuscular Hemoglobin 31 pg (25-35) Mean Corpuscular Hemoglobin Concent 33 g/dL (31-37) Red Cell Distribution Width 13.6 % (11.5-14.5) Platelet Count 296 x10^3/uL (140-400) Neutrophils (%) (Auto) 82 % (31-73) Lymphocytes (%) (Auto) 10 % (24-48) Monocytes (%) (Auto) 7 % (0-9) Eosinophils (%) (Auto) 0 % (0-3) Basophils (%) (Auto) 0 % (0-3) Neutrophils # (Auto) 18.7 x10^3/uL (1.8-7.7) Lymphocytes # (Auto) 2.4 x10^3/uL (1.0-4.8) Monocytes # (Auto) 1.6 x10^3/uL (0.0-1.1) Eosinophils # (Auto) 0.0 x10^3/uL (0.0-0.7) Basophils # (Auto) 0.1 x10^3/uL (0.0-0.2) Heparin Anti-Xa Act, Unfractionated 0.19 IU/mL (0.30-0.70) Sodium Level 139 mmol/L (136-145) Potassium Level 3.7 mmol/L (3.5-5.1) Chloride Level 105 mmol/L (98-107) Carbon Dioxide Level 23 mmol/L (21-32) Anion Gap 11 (6-14) Blood Urea Nitrogen 27 mg/dL (8-26) Creatinine 0.9 mg/dL (0.7-1.3) Estimated GFR (Cockcroft-Gault) 85.2 BUN/Creatinine Ratio 30 (6-20) Glucose Level 153 mg/dL (70-99) Calcium Level 8.4 mg/dL (8.5-10.1) Total Bilirubin 0.8 mg/dL (0.2-1.0) Aspartate Amino Transf (AST/SGOT) 143 U/L (15-37) Alanine Aminotransferase (ALT/SGPT) 196 U/L (16-63) Alkaline Phosphatase 67 U/L (46-116) Total Protein 6.4 g/dL (6.4-8.2) Albumin 2.9 g/dL (3.4-5.0) Albumin/Globulin Ratio 0.8 (1.0-1.7) Triglycerides Level 66 mg/dL (0-150) Cholesterol Level 125 mg/dL (0-200) LDL Cholesterol, Calculated 54 mg/dL (0-100) VLDL Cholesterol, Calculated 13 mg/dL (0-40) Non-HDL Cholesterol Calculated 67 mg/dL (0-129) HDL Cholesterol 58 mg/dL (40-60) Cholesterol/HDL Ratio 2.2 Thyroid Stimulating Hormone (TSH) 0.645 uIU/mL (0.358-3.74) Glucose (Fingerstick) 145 mg/dL (70-99) 149 mg/dL (70-99) O2 Saturation 96 % (92-99) Arterial Blood pH 7.56 (7.35-7.45) Arterial Blood pH (Temp corrected) 7.52 Arterial Blood pCO2 at Patient Temp 26 mmHg (35-46) Arterial Blood pCO2 (Temp correct) 29 mmHg Arterial Blood pO2 at Patient Temp 77 mmHg (65-108) Arterial Blood pO2 (Temp corrected) 89 mmHg Arterial Blood HCO3 23 mmol/L (21-28) Arterial Blood Base Excess 2 mmol/L (-3-3) FiO2 40 Test 01/14/20 12:25 01/14/20 23:00 01/14/20 23:02 01/15/20 05:15 Heparin Anti-Xa Act, Unfractionated 0.61 IU/mL (0.30-0.70) 0.48 IU/mL (0.30-0.70) 0.32 IU/mL (0.30-0.70) Glucose (Fingerstick) 163 mg/dL (70-99) Test 01/15/20 05:23 01/15/20 08:00 01/15/20 08:15 Glucose (Fingerstick) 142 mg/dL (70-99) O2 Saturation 98 % (92-99) Arterial Blood pH 7.50 (7.35-7.45) Arterial Blood pH (Temp corrected) 7.46 Arterial Blood pCO2 at Patient Temp 29 mmHg (35-46) Arterial Blood pCO2 (Temp correct) 32 mmHg Arterial Blood pO2 at Patient Temp 96 mmHg (65-108) Arterial Blood pO2 (Temp corrected) 106 mmHg Arterial Blood HCO3 22 mmol/L (21-28) Arterial Blood Base Excess 0 mmol/L (-3-3) FiO2 40%+5 White Blood Count 21.5 x10^3/uL (4.0-11.0) Red Blood Count 4.53 x10^6/uL (4.30-5.70) Hemoglobin 13.8 g/dL (13.0-17.5) Hematocrit 41.7 % (39.0-53.0) Mean Corpuscular Volume 92 fL (79-100) Mean Corpuscular Hemoglobin 30 pg (25-35) Mean Corpuscular Hemoglobin Concent 33 g/dL (31-37) Red Cell Distribution Width 13.0 % (11.5-14.5) Platelet Count 257 x10^3/uL (140-400) Neutrophils (%) (Auto) 81 % (31-73) Lymphocytes (%) (Auto) 11 % (24-48) Monocytes (%) (Auto) 8 % (0-9) Eosinophils (%) (Auto) 0 % (0-3) Basophils (%) (Auto) 1 % (0-3) Neutrophils # (Auto) 17.4 x10^3/uL (1.8-7.7) Lymphocytes # (Auto) 2.3 x10^3/uL (1.0-4.8) Monocytes # (Auto) 1.7 x10^3/uL (0.0-1.1) Eosinophils # (Auto) 0.0 x10^3/uL (0.0-0.7) Basophils # (Auto) 0.1 x10^3/uL (0.0-0.2) Sodium Level 141 mmol/L (136-145) Potassium Level 3.5 mmol/L (3.5-5.1) Chloride Level 106 mmol/L (98-107) Carbon Dioxide Level 27 mmol/L (21-32) Anion Gap 8 (6-14) Blood Urea Nitrogen 31 mg/dL (8-26) Creatinine 0.9 mg/dL (0.7-1.3) Estimated GFR (Cockcroft-Gault) 85.2 BUN/Creatinine Ratio 34 (6-20) Glucose Level 141 mg/dL (70-99) Calcium Level 8.1 mg/dL (8.5-10.1) Total Bilirubin 1.1 mg/dL (0.2-1.0) Aspartate Amino Transf (AST/SGOT) 117 U/L (15-37) Alanine Aminotransferase (ALT/SGPT) 128 U/L (16-63) Alkaline Phosphatase 66 U/L (46-116) Total Protein 6.1 g/dL (6.4-8.2) Albumin 2.6 g/dL (3.4-5.0) Albumin/Globulin Ratio 0.7 (1.0-1.7) Laboratory Tests Test 01/14/20 11:53 01/14/20 12:25 01/14/20 23:00 01/14/20 23:02 Glucose (Fingerstick) 149 mg/dL (70-99) 163 mg/dL (70-99) Heparin Anti-Xa Act, Unfractionated 0.61 IU/mL (0.30-0.70) 0.48 IU/mL (0.30-0.70) Test 01/15/20 05:15 01/15/20 05:23 01/15/20 08:00 01/15/20 08:15 Heparin Anti-Xa Act, Unfractionated 0.32 IU/mL (0.30-0.70) Glucose (Fingerstick) 142 mg/dL (70-99) O2 Saturation 98 % (92-99) Arterial Blood pH 7.50 (7.35-7.45) Arterial Blood pH (Temp corrected) 7.46 Arterial Blood pCO2 at Patient Temp 29 mmHg (35-46) Arterial Blood pCO2 (Temp correct) 32 mmHg Arterial Blood pO2 at Patient Temp 96 mmHg (65-108) Arterial Blood pO2 (Temp corrected) 106 mmHg Arterial Blood HCO3 22 mmol/L (21-28) Arterial Blood Base Excess 0 mmol/L (-3-3) FiO2 40%+5 White Blood Count 21.5 x10^3/uL (4.0-11.0) Red Blood Count 4.53 x10^6/uL (4.30-5.70) Hemoglobin 13.8 g/dL (13.0-17.5) Hematocrit 41.7 % (39.0-53.0) Mean Corpuscular Volume 92 fL (79-100) Mean Corpuscular Hemoglobin 30 pg (25-35) Mean Corpuscular Hemoglobin Concent 33 g/dL (31-37) Red Cell Distribution Width 13.0 % (11.5-14.5) Platelet Count 257 x10^3/uL (140-400) Neutrophils (%) (Auto) 81 % (31-73) Lymphocytes (%) (Auto) 11 % (24-48) Monocytes (%) (Auto) 8 % (0-9) Eosinophils (%) (Auto) 0 % (0-3) Basophils (%) (Auto) 1 % (0-3) Neutrophils # (Auto) 17.4 x10^3/uL (1.8-7.7) Lymphocytes # (Auto) 2.3 x10^3/uL (1.0-4.8) Monocytes # (Auto) 1.7 x10^3/uL (0.0-1.1) Eosinophils # (Auto) 0.0 x10^3/uL (0.0-0.7) Basophils # (Auto) 0.1 x10^3/uL (0.0-0.2) Sodium Level 141 mmol/L (136-145) Potassium Level 3.5 mmol/L (3.5-5.1) Chloride Level 106 mmol/L (98-107) Carbon Dioxide Level 27 mmol/L (21-32) Anion Gap 8 (6-14) Blood Urea Nitrogen 31 mg/dL (8-26) Creatinine 0.9 mg/dL (0.7-1.3) Estimated GFR (Cockcroft-Gault) 85.2 BUN/Creatinine Ratio 34 (6-20) Glucose Level 141 mg/dL (70-99) Calcium Level 8.1 mg/dL (8.5-10.1) Total Bilirubin 1.1 mg/dL (0.2-1.0) Aspartate Amino Transf (AST/SGOT) 117 U/L (15-37) Alanine Aminotransferase (ALT/SGPT) 128 U/L (16-63) Alkaline Phosphatase 66 U/L (46-116) Total Protein 6.1 g/dL (6.4-8.2) Albumin 2.6 g/dL (3.4-5.0) Albumin/Globulin Ratio 0.7 (1.0-1.7) Medications Current Medications Heparin Sodium/ Sodium Chloride 0 ml @ As Directed STK-MED ONCE .ROUTE ; Start 01/12/20 at 12:25; Stop 01/12/20 at 12:25; Status DC Fentanyl Citrate (Fentanyl 2ml Vial) 100 mcg STK-MED ONCE .ROUTE ; Start 01/12/20 at 12:26; Stop 01/12/20 at 12:26; Status DC Midazolam HCl (Versed) 2 mg STK-MED ONCE .ROUTE ; Start 01/12/20 at 12:26; Stop 01/12/20 at 12:26; Status DC Iodixanol (Visipaque 320) 100 ml STK-MED ONCE .ROUTE ; Start 01/12/20 at 12:26; Stop 01/12/20 at 12:26; Status DC Lidocaine HCl (Lidocaine 1% 20ml Vial) 20 ml STK-MED ONCE .ROUTE ; Start 01/12/20 at 12:26; Stop 01/12/20 at 12:27; Status DC Amiodarone HCl 450 mg/Dextrose 259 ml @ 0 mls/hr CONT PRN IV SEE I/O RECORD; Start 01/12/20 at 12:45; Status UNV Amiodarone HCl 450 mg/Dextrose 259 ml @ 33 mls/hr CONT PRN IV SEE I/O RECORD Last administered on 01/13/20at 03:07; Start 01/12/20 at 12:45; Stop 01/13/20 at 03:07; Status DC Fentanyl Citrate (Fentanyl 2ml Vial) 100 mcg 1X ONCE IV Last administered on 01/12/20at 12:54; Start 01/12/20 at 13:00; Stop 01/12/20 at 13:01; Status DC Midazolam HCl (Versed) 2 mg 1X ONCE IV Last administered on 01/12/20at 12:54; Start 01/12/20 at 13:00; Stop 01/12/20 at 13:01; Status DC Magnesium Sulfate/ Dextrose 100 ml @ 100 mls/hr 1X ONCE IV ; Start 01/12/20 at 13:00; Stop 01/12/20 at 13:59; Status DC Buspirone HCl (Buspar) 30 mg Q8H NG ; Start 01/12/20 at 13:00; Stop 01/12/20 at 17:03; Status DC Acetaminophen (Tylenol) 650 mg Q4H NG ; Start 01/12/20 at 13:00; Stop 01/12/20 at 21:13; Status DC Acetaminophen (Tylenol Supp) 650 mg PRN Q4HRS PRN LA IF NO NG DOSE GIVEN Last administered on 01/15/20at 08:02; Start 01/12/20 at 12:45 Artificial Tears (Artificial Tears) 1 drop Q6HRS OU ; Start 01/12/20 at 18:00; Stop 01/12/20 at 21:13; Status DC Artificial Tears (Artificial Tears) 1 drop PRN Q15MIN PRN OU DRY EYE Last administered on 01/14/20at 13:16; Start 01/12/20 at 12:45 Heparin Sodium (Porcine) (Heparin Sodium) 5,000 unit BID SQ Last administered on 01/12/20at 21:19; Start 01/12/20 at 21:00; Stop 01/13/20 at 15:08; Status DC Pantoprazole Sodium (PROTONIX VIAL for IV PUSH) 40 mg DAILY IVP ; Start 01/13/20 at 09:00; Stop 01/12/20 at 17:03; Status DC Fentanyl Citrate 30 ml @ 0 mls/hr CONT PRN IV PER PROTOCOL.; Start 01/12/20 at 12:45 Propofol 100 ml @ 0 mls/hr CONT PRN IV PER PROTOCOL.; Start 01/12/20 at 12:45 Midazolam HCl 100 ml @ 0 mls/hr CONT PRN IV PER PROTOCOL. Last administered on 01/12/20at 13:32; Start 01/12/20 at 12:45 Vecuronium [place] (Norcuron Bolus) 10 mg PRN Q1HR PRN IV SHIVERING; Start 01/12/20 at 12:45 Fentanyl Citrate 30 ml @ 0 mls/hr CONT PRN IV SEE PROTOCOL; Start 01/12/20 at 13:00; Status UNV Fentanyl Citrate (Fentanyl 2ml Vial) 25 mcg PRN Q1HR PRN IV SEE COMMENTS; Start 01/12/20 at 13:00 Fentanyl Citrate (Fentanyl 2ml Vial) 50 mcg PRN Q1HR PRN IV SEE COMMENTS Last administered on 01/14/20at 21:00; Start 01/12/20 at 13:00 Chlorhexidine Gluconate (Peridex) 15 ml BID MM ; Start 01/12/20 at 21:00; Stop 01/12/20 at 17:03; Status DC Midazolam HCl 100 ml @ 0 mls/hr CONT PRN IV SEE PROTOCOL; Start 01/12/20 at 13:00; Status UNV Potassium Chloride/Water 100 ml @ 50 mls/hr 1X ONCE IV Last administered on 01/12/20at 14:00; Start 01/12/20 at 14:00; Stop 01/12/20 at 15:59; Status DC Dopamine HCl/ Dextrose 250 ml @ 17.944 mls/ hr CONT PRN PRN IV SEE PROTOCOL; Start 01/12/20 at 16:49 Famotidine (Pepcid Vial) 20 mg BID IVP Last administered on 01/15/20at 08:02; Start 01/12/20 at 21:00 Potassium Chloride/Water 100 ml @ 100 mls/hr Q1H IV Last administered on 01/12/20at 20:26; Start 01/12/20 at 17:30; Stop 01/12/20 at 19:29; Status DC Sodium Chloride 1,000 ml @ 100 mls/hr Q10H IV Last administered on 01/15/20at 08:08; Start 01/12/20 at 18:30 Acetaminophen (Tylenol) 650 mg PRN Q6HRS PRN PEG MILD PAIN / TEMP > 100.3'F Last administered on 01/13/20at 04:16; Start 01/13/20 at 04:15 Magnesium Sulfate/ Dextrose 100 ml @ 100 mls/hr 1X ONCE IV Last administered on 01/13/20at 07:59; Start 01/13/20 at 08:00; Stop 01/13/20 at 08:59; Status DC Nicardipine HCl 50 mg/Sodium Chloride 250 ml @ 25 mls/hr CONT PRN IV SEE I/O RECORD Last administered on 01/14/20at 00:22; Start 01/13/20 at 09:00 Amiodarone HCl 450 mg/Dextrose 259 ml @ 17 mls/hr CONT PRN IV SEE I/O RECORD Last administered on 01/14/20at 21:32; Start 01/13/20 at 11:30 Insulin Human Lispro (HumaLOG) 0-7 UNITS Q6HRS SQ ; Start 01/13/20 at 13:15 Dextrose (Dextrose 50%-Water Syringe) 12.5 gm PRN Q15MIN PRN IV SEE COMMENTS; Start 01/13/20 at 13:15 Heparin Sodium/ Dextrose 250 ml @ 0 mls/hr CONT PRN IV PER PROTOCOL Last administered on 01/15/20at 06:35; Start 01/13/20 at 15:30 Heparin Sodium (Porcine) (Heparin Sodium) 2,300 unit PRN Q6HRS PRN IV FOR UFH LEVEL LESS THAN 0.2 Last administered on 01/14/20at 07:56; Start 01/13/20 at 15:30 Amiodarone HCl 450 mg/Dextrose 259 ml @ 0 mls/hr DAILY IV ; Start 01/13/20 at 15:45; Status UNV Aspirin (Ecotrin) 81 mg DAILYWBKFT PO ; Start 01/14/20 at 15:00; Stop 01/15/20 at 07:44; Status DC Aspirin (Aspirin Chewable) 81 mg DAILYWBKFT PO ; Start 01/15/20 at 08:00 Active Scripts Active Reported Vitamin D3 Complete Caplet (Mv-Mn/Iron/Fa/Herbal Cmplx#190) 1 Each Tablet 1 Each PO BID Metformin Hcl 1,000 Mg Tablet 1,000 Mg PO BIDWMEALS Adult Low Dose Aspirin Ec (Aspirin) 81 Mg Tablet.dr 81 Mg PO DAILY Metoprolol Tartrate 25 Mg Tablet 25 Mg PO BID Lisinopril 20 Mg Tablet 20 Mg PO DAILY Plavix (Clopidogrel Bisulfate) 75 Mg Tablet 75 Mg PO DAILY Atorvastatin Calcium 80 Mg Tablet 80 Mg PO DAILY Fish Oil 1,200 Mg Fish Oil (Fish Oil/Dha/Epa) 1 Each Capsule 2,400 Mg PO DAILY Vitals/I & O Vital Sign - Last 24 Hours 01/14/20 01/14/20 01/14/20 01/14/20 10:11 11:14 11:52 12:15 Temp 102.7 102.7 Pulse 90 90 90 Resp 24 24 B/P (MAP) 116/65 (82) 106/58 (74) 109/61 (77) Pulse Ox 97 95 98 O2 Delivery Ventilator Ventilator Ventilator 01/14/20 01/14/20 01/14/20 01/14/20 12:40 13:12 14:02 15:34 Temp 101.7 101.7 Pulse 87 99 84 Resp 24 27 B/P (MAP) 123/65 (84) 147/81 (103) 138/72 (94) Pulse Ox 99 99 95 O2 Delivery Mechanical Ventilator Ventilator Ventilator Ventilator 01/14/20 01/14/20 01/14/20 01/14/20 16:00 16:00 16:04 17:29 Pulse 81 75 Resp 26 26 B/P (MAP) 143/75 (97) 147/76 (99) Pulse Ox 97 96 97 O2 Delivery Ventilator Mechanical Ventilator Ventilator Ventilator 01/14/20 01/14/20 01/14/20 01/14/20 18:00 18:05 19:00 19:56 Temp 101.5 101.5 Pulse 82 82 Resp 24 29 B/P (MAP) 148/75 (99) 152/75 (100) Pulse Ox 97 98 98 98 O2 Delivery Ventilator Ventilator Ventilator Ventilator 01/14/20 01/14/20 01/14/20 01/14/20 20:00 20:00 21:00 21:00 Temp 101.3 101.3 101.3 101.3 Pulse 80 81 Resp 28 29 29 B/P (MAP) 145/77 (99) 147/73 (97) Pulse Ox 98 98 96 O2 Delivery Mechanical Ventilator Ventilator Ventilator Ventilator 01/14/20 01/14/20 01/14/20 01/14/20 21:30 22:00 23:00 23:55 Temp 100.9 100.9 100.9 100.9 Pulse 79 79 Resp 27 B/P (MAP) 148/69 (95) 142/72 (95) Pulse Ox 98 95 98 98 O2 Delivery Ventilator Ventilator Ventilator Ventilator 01/15/20 01/15/20 01/15/20 01/15/20 00:00 00:00 01:00 01:30 Temp 100.9 100.9 100.9 100.9 Pulse 74 75 Resp 23 B/P (MAP) 140/73 (95) 141/69 (93) Pulse Ox 98 99 99 O2 Delivery Ventilator Mechanical Ventilator Ventilator Ventilator 01/15/20 01/15/20 01/15/20 01/15/20 02:00 03:00 04:00 04:00 Temp 101.3 101.5 101.7 101.3 101.5 101.7 Pulse 72 69 70 Resp 26 B/P (MAP) 150/64 (92) 123/62 (82) 129/59 (82) Pulse Ox 99 97 98 O2 Delivery Ventilator Ventilator Mechanical Ventilator Ventilator 01/15/20 01/15/20 01/15/20 01/15/20 05:00 05:17 06:00 06:55 Temp 101.8 101.8 102.0 101.8 101.8 102.0 Pulse 67 68 68 Resp 21 B/P (MAP) 132/55 (80) 152/70 (97) 155/76 (102) Pulse Ox 98 98 99 99 O2 Delivery Ventilator Ventilator Ventilator Ventilator 01/15/20 01/15/20 01/15/20 07:49 08:15 09:15 Temp 102.2 102.2 102.2 102.2 Pulse 73 70 Resp B/P (MAP) 162/78 (106) 175/76 (109) Pulse Ox 100 96 99 O2 Delivery Ventilator Ventilator Ventilator Intake and Output 01/14/20 01/14/20 01/15/20 14:59 22:59 06:59 Intake Total 57 ml 1593 ml 1872 ml Output Total 390 ml 1005 ml 1099 ml Balance -333 ml 588 ml 773 ml JONATHAN ADAMES MD January 15, 2020 10:03
--- NOTE | 2020-01-15 11:37 | PDOC ---
[facility] IN[facility] MANAGEMENT 01/15/20 1137: CARDIO Progress Notes Date and Time Date of Service 01/15/2020 Time of Evaluation 1120 Subjective Subjective: Other (off sedation, not responsive) Vitals Vitals Vital Signs Date Time Temp Pulse Resp B/P (MAP) Pulse Ox O2 Delivery O2 Flow Rate FiO2 01/15/20 10:00 99 Ventilator 01/15/20 09:15 102.2 70 24 175/76 (109) 102.2 Weight Weight [ ] Input and Output Intake and Output Intake and Output 01/15/20 07:00 Intake Total 3522 ml Output Total 2344 ml Balance 1178 ml IV Total 3122 ml Tube Feeding 400 ml Output Urine Total 1344 ml Gastric Drainage Total 1000 ml Laboratory Labs Laboratory Tests Test 01/14/20 11:53 01/14/20 12:25 01/14/20 23:00 01/14/20 23:02 Glucose (Fingerstick) 149 mg/dL (70-99) 163 mg/dL (70-99) Heparin Anti-Xa Act, Unfractionated 0.61 IU/mL (0.30-0.70) 0.48 IU/mL (0.30-0.70) Test 01/15/20 05:15 01/15/20 05:23 01/15/20 08:00 01/15/20 08:15 Heparin Anti-Xa Act, Unfractionated 0.32 IU/mL (0.30-0.70) Glucose (Fingerstick) 142 mg/dL (70-99) O2 Saturation 98 % (92-99) Arterial Blood pH 7.50 (7.35-7.45) Arterial Blood pH (Temp corrected) 7.46 Arterial Blood pCO2 at Patient Temp 29 mmHg (35-46) Arterial Blood pCO2 (Temp correct) 32 mmHg Arterial Blood pO2 at Patient Temp 96 mmHg (65-108) Arterial Blood pO2 (Temp corrected) 106 mmHg Arterial Blood HCO3 22 mmol/L (21-28) Arterial Blood Base Excess 0 mmol/L (-3-3) FiO2 40%+5 White Blood Count 21.5 x10^3/uL (4.0-11.0) Red Blood Count 4.53 x10^6/uL (4.30-5.70) Hemoglobin 13.8 g/dL (13.0-17.5) Hematocrit 41.7 % (39.0-53.0) Mean Corpuscular Volume 92 fL (79-100) Mean Corpuscular Hemoglobin 30 pg (25-35) Mean Corpuscular Hemoglobin Concent 33 g/dL (31-37) Red Cell Distribution Width 13.0 % (11.5-14.5) Platelet Count 257 x10^3/uL (140-400) Neutrophils (%) (Auto) 81 % (31-73) Lymphocytes (%) (Auto) 11 % (24-48) Monocytes (%) (Auto) 8 % (0-9) Eosinophils (%) (Auto) 0 % (0-3) Basophils (%) (Auto) 1 % (0-3) Neutrophils # (Auto) 17.4 x10^3/uL (1.8-7.7) Lymphocytes # (Auto) 2.3 x10^3/uL (1.0-4.8) Monocytes # (Auto) 1.7 x10^3/uL (0.0-1.1) Eosinophils # (Auto) 0.0 x10^3/uL (0.0-0.7) Basophils # (Auto) 0.1 x10^3/uL (0.0-0.2) Sodium Level 141 mmol/L (136-145) Potassium Level 3.5 mmol/L (3.5-5.1) Chloride Level 106 mmol/L (98-107) Carbon Dioxide Level 27 mmol/L (21-32) Anion Gap 8 (6-14) Blood Urea Nitrogen 31 mg/dL (8-26) Creatinine 0.9 mg/dL (0.7-1.3) Estimated GFR (Cockcroft-Gault) 85.2 BUN/Creatinine Ratio 34 (6-20) Glucose Level 141 mg/dL (70-99) Calcium Level 8.1 mg/dL (8.5-10.1) Total Bilirubin 1.1 mg/dL (0.2-1.0) Aspartate Amino Transf (AST/SGOT) 117 U/L (15-37) Alanine Aminotransferase (ALT/SGPT) 128 U/L (16-63) Alkaline Phosphatase 66 U/L (46-116) Total Protein 6.1 g/dL (6.4-8.2) Albumin 2.6 g/dL (3.4-5.0) Albumin/Globulin Ratio 0.7 (1.0-1.7) Physical Exam HEENT: Neck Supple W Full Motion Chest: Symmetric LUNGS: Other (mechanical vent) Heart: RRR (SR) Abdomen: Other (soft ) Extremities: No Edema Neurology: other (off sedation, no response) Assessment Assessment 1. OOH arrest secondary to VT, VF. Prolonged CPR prior to ROSC. Rhythm stable overnight on IV amiodarone. 2. Acute respiratory failure secondary to cardiac arrest; remains on vent, off sedation. EF nml with Base to mid inferior wall hypokinesis 3. CAD s/p remote PCI of the LAD and RCA. sees [facility], Dr. Pierre 4. Hypertension: labile episode 5. Hyperlipidemia 6. Diabetes, II 7. Possible CVA Neurology following 8. 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 Leukocytosis/fever: Tmax 102.2 10. NSTEMI: trop noted at 7.5 11. Coffee ground gastric contents via OGT: possibly from gastroesophageal irritation. Hgb and PLT stable. Per PCP Recommendations 1. Continue amiodarone/heparin drip. Could change ASA to rectal. Continue with antipyretics and pepcid. 2. Very poor prognosis. Will consider for LHC if any meaningful neurological recovery. 3. Supportive care. Now DNR. ALON GOVEA MD 01/15/20 1505: CARDIO Progress Notes Assessment Assessment Patient seen and examined. 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 Telemetry did not show any significant arrhythmias 2D echo showed basal to mid inferior wall hypokinesis with preserved LVEF We will consider cardiac catheterization if he has any meaningful neurological recovery JAS TURNER APRN January 15, 2020 11:37 ALON GOVEA MD January 15, 2020 15:05
[2020-01-15] MEDS: AMINO AC 3%/ELECTROLYTE/GLYCER 1,000 ML IV SCH (12:57)
[2020-01-15] MEDS ORDERED: LABETALOL 20 MG/4 ML DISP.SYRIN. IVP PRN (14:00)
--- NOTE | 2020-01-15 14:06 | PDOC ---
PROGRESS NOTES Chief Complaint Chief Complaint A/P: Acute hypoxic and hypercapnic respiratory failure secondary to cardiac arrest. Ventricular fibrillation Cardiac arrest - s/p CPR and ACLS protocol for approximately 50 minutes. Coronary artery disease and suspected non-ST myocardial infarction. Coffee-ground OG aspirate. Could be related to OG trauma. Likely chronic obstructive pulmonary disease. Abnormal ct head with suspected small ischemic infarct -there is likely an infarct, also concern for significant anoxic brain injury on examination Shock Liver Fever-likely secondary to aspiration, will monitor FEN PPX FULL CODE Dispo - ICU, overall poor prognosis History of Present Illness History of Present Illness Mr Rivas is a 64 y M w/ PMHx CAD (stent 14 yr ago), DM2, ex-smoker (30 pack year history) who presents via EMS on 01/12/2020 after being found down by his family. EMS found him in V-tach, initiated CPR and had ACLS protocol followed for about 20 minutes. In ED had approximately 20-25 minutes of CPR intermittently with shock and ACLS medications with rhythm throughout V-tach and V-fib. ROSC eventually achieved and he was initiated on IV amiodarone and 2 ampules of bicarbonate. He was requiring low-dose Levophed. Cardiology advised no immediate intervention indicated. Initial ABG pH of 7.03, pCO2 of 50 and a pO2 of 258 started on 60% and [address] head with concern for left parietal ischemia. Initial K 2.7. BUN 18, creatinine 1.4. AST and ALT elevated. WBC 7.1, hemoglobin 15.1, platelets 278,000. 01/13/2020 Overnight had some shaking episodes. This morning temperature 101.7 F, WBC 21.3, K3.7, CR 1.3, MG 1.5, ABG 7.45/30 on 60% FiO2. is currently bedside to witness physical examination with eyes deviated upward into the left no meaningful response to pain does have gag to suction. Does not follow any commands has been off sedation for 6 hours. I had a long conversation with who has conference called the sons to discuss goals of further care and they have made it very clear that his wish was not to remain in a persistent vegetative state if there is no meaningful prognosis for neurologic recovery. They are aware of the overall poor prognosis given his prolonged CPR course. 01/14/2020 Quite grim prognosis, discussed with at bedside, reassured her but also gave her the perspective of a meaningful recovery being unlikey in light of his current state. also reassured her that she had the conversation with the patient regarding wishes not to have intervention that would just prolong the inevitable. I asked her about the patients wishes and as stated on my colleagues note yesterday he had voiced not wanting to have supportive measures if he would be in a persistent vegetative state which seems to be the direction he is going. Will continue to follow. 01/15/2020 Patient with no neurological response as expected, reviewed results from current work-up consistent with anoxic brain injury. Encephalopathy seems to be getting worse. Discussed with at bedside reassurance has been provided Vitals Vitals Vital Signs Date Time Temp Pulse Resp B/P (MAP) Pulse Ox O2 Delivery O2 Flow Rate FiO2 01/15/20 13:13 102.7 69 28 161/69 (99) 100 Ventilator 102.7 Physical Exam Physical Exam On ventilator No pupillary response No oculocephalic response CN: no focal findings. Muscle tone: normal. Muscle strength: withdraws slightly to pain DTR: 1+ Plantar reflex: silent General: No acute distress, Other (Intubated and on a ventilator) Heart: Regular rate Lungs: Clear Abdomen: Normal bowel sounds Labs LABS Laboratory Tests Test 01/14/20 23:00 01/14/20 23:02 01/15/20 05:15 01/15/20 05:23 Heparin Anti-Xa Act, Unfractionated 0.48 IU/mL (0.30-0.70) 0.32 IU/mL (0.30-0.70) Glucose (Fingerstick) 163 mg/dL (70-99) 142 mg/dL (70-99) Test 01/15/20 08:00 01/15/20 08:15 01/15/20 12:52 O2 Saturation 98 % (92-99) Arterial Blood pH 7.50 (7.35-7.45) Arterial Blood pH (Temp corrected) 7.46 Arterial Blood pCO2 at Patient Temp 29 mmHg (35-46) Arterial Blood pCO2 (Temp correct) 32 mmHg Arterial Blood pO2 at Patient Temp 96 mmHg (65-108) Arterial Blood pO2 (Temp corrected) 106 mmHg Arterial Blood HCO3 22 mmol/L (21-28) Arterial Blood Base Excess 0 mmol/L (-3-3) FiO2 40%+5 White Blood Count 21.5 x10^3/uL (4.0-11.0) Red Blood Count 4.53 x10^6/uL (4.30-5.70) Hemoglobin 13.8 g/dL (13.0-17.5) Hematocrit 41.7 % (39.0-53.0) Mean Corpuscular Volume 92 fL (79-100) Mean Corpuscular Hemoglobin 30 pg (25-35) Mean Corpuscular Hemoglobin Concent 33 g/dL (31-37) Red Cell Distribution Width 13.0 % (11.5-14.5) Platelet Count 257 x10^3/uL (140-400) Neutrophils (%) (Auto) 81 % (31-73) Lymphocytes (%) (Auto) 11 % (24-48) Monocytes (%) (Auto) 8 % (0-9) Eosinophils (%) (Auto) 0 % (0-3) Basophils (%) (Auto) 1 % (0-3) Neutrophils # (Auto) 17.4 x10^3/uL (1.8-7.7) Lymphocytes # (Auto) 2.3 x10^3/uL (1.0-4.8) Monocytes # (Auto) 1.7 x10^3/uL (0.0-1.1) Eosinophils # (Auto) 0.0 x10^3/uL (0.0-0.7) Basophils # (Auto) 0.1 x10^3/uL (0.0-0.2) Sodium Level 141 mmol/L (136-145) Potassium Level 3.5 mmol/L (3.5-5.1) Chloride Level 106 mmol/L (98-107) Carbon Dioxide Level 27 mmol/L (21-32) Anion Gap 8 (6-14) Blood Urea Nitrogen 31 mg/dL (8-26) Creatinine 0.9 mg/dL (0.7-1.3) Estimated GFR (Cockcroft-Gault) 85.2 BUN/Creatinine Ratio 34 (6-20) Glucose Level 141 mg/dL (70-99) Calcium Level 8.1 mg/dL (8.5-10.1) Total Bilirubin 1.1 mg/dL (0.2-1.0) Aspartate Amino Transf (AST/SGOT) 117 U/L (15-37) Alanine Aminotransferase (ALT/SGPT) 128 U/L (16-63) Alkaline Phosphatase 66 U/L (46-116) Total Protein 6.1 g/dL (6.4-8.2) Albumin 2.6 g/dL (3.4-5.0) Albumin/Globulin Ratio 0.7 (1.0-1.7) Glucose (Fingerstick) 129 mg/dL (70-99) Assessment and Plan Assessmemt and Plan Problems Medical Problems: (1) Cardiac arrest Status: Acute Comment Review of Relevant I have reviewed the following items fr[place] (where applicable) has been applied. Labs Laboratory Tests Test 01/13/20 18:29 01/13/20 23:44 01/14/20 00:15 01/14/20 06:10 Glucose (Fingerstick) 158 mg/dL (70-99) 171 mg/dL (70-99) Heparin Anti-Xa Act, Unfractionated 0.36 IU/mL (0.30-0.70) 0.19 IU/mL (0.30-0.70) Urine Collection Type Unknown Urine Color Yellow Urine Clarity Clear Urine pH 6.5 (<5.0-8.0) Urine Specific [employer] [place] 1.020 (1.000-1.030) Urine Protein 30 mg/dL (NEG-TRACE) Urine Glucose (UA) Negative mg/dL (NEG) Urine Ketones (Stick) Trace mg/dL (NEG) Urine Blood Moderate (NEG) Urine Nitrite Negative (NEG) Urine Bilirubin Negative (NEG) Urine Urobilinogen Dipstick 1.0 mg/dL (0.2 mg/dL) Urine Leukocyte Esterase Negative (NEG) Urine RBC Occ /HPF (0-2) Urine WBC 1-4 /HPF (0-4) Urine Bacteria 0 /HPF (0-FEW) Urine Cellular Casts Occ /HPF Urine Hyaline Casts Few /HPF Urine Granular Casts Moderate /HPF Urine Waxy Casts Occasional /HPF Urine Mucus Mod /LPF Urine Opiates Screen Neg (NEG) Urine Methadone Screen Neg (NEG) Urine Barbiturates Neg (NEG) Urine Phencyclidine Screen Neg (NEG) Urine Amphetamine/Methamphetamine Neg (NEG) Urine Benzodiazepines Screen Pos (NEG) Urine Cocaine Screen Neg (NEG) Urine Cannabinoids Screen Neg (NEG) Urine Ethyl Alcohol Neg (NEG) White Blood Count 22.7 x10^3/uL (4.0-11.0) Red Blood Count 4.95 x10^6/uL (4.30-5.70) Hemoglobin 15.2 g/dL (13.0-17.5) Hematocrit 45.7 % (39.0-53.0) Mean Corpuscular Volume 92 fL (79-100) Mean Corpuscular Hemoglobin 31 pg (25-35) Mean Corpuscular Hemoglobin Concent 33 g/dL (31-37) Red Cell Distribution Width 13.6 % (11.5-14.5) Platelet Count 296 x10^3/uL (140-400) Neutrophils (%) (Auto) 82 % (31-73) Lymphocytes (%) (Auto) 10 % (24-48) Monocytes (%) (Auto) 7 % (0-9) Eosinophils (%) (Auto) 0 % (0-3) Basophils (%) (Auto) 0 % (0-3) Neutrophils # (Auto) 18.7 x10^3/uL (1.8-7.7) Lymphocytes # (Auto) 2.4 x10^3/uL (1.0-4.8) Monocytes # (Auto) 1.6 x10^3/uL (0.0-1.1) Eosinophils # (Auto) 0.0 x10^3/uL (0.0-0.7) Basophils # (Auto) 0.1 x10^3/uL (0.0-0.2) Sodium Level 139 mmol/L (136-145) Potassium Level 3.7 mmol/L (3.5-5.1) Chloride Level 105 mmol/L (98-107) Carbon Dioxide Level 23 mmol/L (21-32) Anion Gap 11 (6-14) Blood Urea Nitrogen 27 mg/dL (8-26) Creatinine 0.9 mg/dL (0.7-1.3) Estimated GFR (Cockcroft-Gault) 85.2 BUN/Creatinine Ratio 30 (6-20) Glucose Level 153 mg/dL (70-99) Calcium Level 8.4 mg/dL (8.5-10.1) Total Bilirubin 0.8 mg/dL (0.2-1.0) Aspartate Amino Transf (AST/SGOT) 143 U/L (15-37) Alanine Aminotransferase (ALT/SGPT) 196 U/L (16-63) Alkaline Phosphatase 67 U/L (46-116) Total Protein 6.4 g/dL (6.4-8.2) Albumin 2.9 g/dL (3.4-5.0) Albumin/Globulin Ratio 0.8 (1.0-1.7) Triglycerides Level 66 mg/dL (0-150) Cholesterol Level 125 mg/dL (0-200) LDL Cholesterol, Calculated 54 mg/dL (0-100) VLDL Cholesterol, Calculated 13 mg/dL (0-40) Non-HDL Cholesterol Calculated 67 mg/dL (0-129) HDL Cholesterol 58 mg/dL (40-60) Cholesterol/HDL Ratio 2.2 Thyroid Stimulating Hormone (TSH) 0.645 uIU/mL (0.358-3.74) Test 01/14/20 06:11 01/14/20 08:40 01/14/20 11:53 01/14/20 12:25 Glucose (Fingerstick) 145 mg/dL (70-99) 149 mg/dL (70-99) O2 Saturation 96 % (92-99) Arterial Blood pH 7.56 (7.35-7.45) Arterial Blood pH (Temp corrected) 7.52 Arterial Blood pCO2 at Patient Temp 26 mmHg (35-46) Arterial Blood pCO2 (Temp correct) 29 mmHg Arterial Blood pO2 at Patient Temp 77 mmHg (65-108) Arterial Blood pO2 (Temp corrected) 89 mmHg Arterial Blood HCO3 23 mmol/L (21-28) Arterial Blood Base Excess 2 mmol/L (-3-3) FiO2 40 Heparin Anti-Xa Act, Unfractionated 0.61 IU/mL (0.30-0.70) Test 01/14/20 23:00 01/14/20 23:02 01/15/20 05:15 01/15/20 05:23 Heparin Anti-Xa Act, Unfractionated 0.48 IU/mL (0.30-0.70) 0.32 IU/mL (0.30-0.70) Glucose (Fingerstick) 163 mg/dL (70-99) 142 mg/dL (70-99) Test 01/15/20 08:00 01/15/20 08:15 01/15/20 12:52 O2 Saturation 98 % (92-99) Arterial Blood pH 7.50 (7.35-7.45) Arterial Blood pH (Temp corrected) 7.46 Arterial Blood pCO2 at Patient Temp 29 mmHg (35-46) Arterial Blood pCO2 (Temp correct) 32 mmHg Arterial Blood pO2 at Patient Temp 96 mmHg (65-108) Arterial Blood pO2 (Temp corrected) 106 mmHg Arterial Blood HCO3 22 mmol/L (21-28) Arterial Blood Base Excess 0 mmol/L (-3-3) FiO2 40%+5 White Blood Count 21.5 x10^3/uL (4.0-11.0) Red Blood Count 4.53 x10^6/uL (4.30-5.70) Hemoglobin 13.8 g/dL (13.0-17.5) Hematocrit 41.7 % (39.0-53.0) Mean Corpuscular Volume 92 fL (79-100) Mean Corpuscular Hemoglobin 30 pg (25-35) Mean Corpuscular Hemoglobin Concent 33 g/dL (31-37) Red Cell Distribution Width 13.0 % (11.5-14.5) Platelet Count 257 x10^3/uL (140-400) Neutrophils (%) (Auto) 81 % (31-73) Lymphocytes (%) (Auto) 11 % (24-48) Monocytes (%) (Auto) 8 % (0-9) Eosinophils (%) (Auto) 0 % (0-3) Basophils (%) (Auto) 1 % (0-3) Neutrophils # (Auto) 17.4 x10^3/uL (1.8-7.7) Lymphocytes # (Auto) 2.3 x10^3/uL (1.0-4.8) Monocytes # (Auto) 1.7 x10^3/uL (0.0-1.1) Eosinophils # (Auto) 0.0 x10^3/uL (0.0-0.7) Basophils # (Auto) 0.1 x10^3/uL (0.0-0.2) Sodium Level 141 mmol/L (136-145) Potassium Level 3.5 mmol/L (3.5-5.1) Chloride Level 106 mmol/L (98-107) Carbon Dioxide Level 27 mmol/L (21-32) Anion Gap 8 (6-14) Blood Urea Nitrogen 31 mg/dL (8-26) Creatinine 0.9 mg/dL (0.7-1.3) Estimated GFR (Cockcroft-Gault) 85.2 BUN/Creatinine Ratio 34 (6-20) Glucose Level 141 mg/dL (70-99) Calcium Level 8.1 mg/dL (8.5-10.1) Total Bilirubin 1.1 mg/dL (0.2-1.0) Aspartate Amino Transf (AST/SGOT) 117 U/L (15-37) Alanine Aminotransferase (ALT/SGPT) 128 U/L (16-63) Alkaline Phosphatase 66 U/L (46-116) Total Protein 6.1 g/dL (6.4-8.2) Albumin 2.6 g/dL (3.4-5.0) Albumin/Globulin Ratio 0.7 (1.0-1.7) Glucose (Fingerstick) 129 mg/dL (70-99) Laboratory Tests Test 01/14/20 23:00 01/14/20 23:02 01/15/20 05:15 01/15/20 05:23 Heparin Anti-Xa Act, Unfractionated 0.48 IU/mL (0.30-0.70) 0.32 IU/mL (0.30-0.70) Glucose (Fingerstick) 163 mg/dL (70-99) 142 mg/dL (70-99) Test 01/15/20 08:00 01/15/20 08:15 01/15/20 12:52 O2 Saturation 98 % (92-99) Arterial Blood pH 7.50 (7.35-7.45) Arterial Blood pH (Temp corrected) 7.46 Arterial Blood pCO2 at Patient Temp 29 mmHg (35-46) Arterial Blood pCO2 (Temp correct) 32 mmHg Arterial Blood pO2 at Patient Temp 96 mmHg (65-108) Arterial Blood pO2 (Temp corrected) 106 mmHg Arterial Blood HCO3 22 mmol/L (21-28) Arterial Blood Base Excess 0 mmol/L (-3-3) FiO2 40%+5 White Blood Count 21.5 x10^3/uL (4.0-11.0) Red Blood Count 4.53 x10^6/uL (4.30-5.70) Hemoglobin 13.8 g/dL (13.0-17.5) Hematocrit 41.7 % (39.0-53.0) Mean Corpuscular Volume 92 fL (79-100) Mean Corpuscular Hemoglobin 30 pg (25-35) Mean Corpuscular Hemoglobin Concent 33 g/dL (31-37) Red Cell Distribution Width 13.0 % (11.5-14.5) Platelet Count 257 x10^3/uL (140-400) Neutrophils (%) (Auto) 81 % (31-73) Lymphocytes (%) (Auto) 11 % (24-48) Monocytes (%) (Auto) 8 % (0-9) Eosinophils (%) (Auto) 0 % (0-3) Basophils (%) (Auto) 1 % (0-3) Neutrophils # (Auto) 17.4 x10^3/uL (1.8-7.7) Lymphocytes # (Auto) 2.3 x10^3/uL (1.0-4.8) Monocytes # (Auto) 1.7 x10^3/uL (0.0-1.1) Eosinophils # (Auto) 0.0 x10^3/uL (0.0-0.7) Basophils # (Auto) 0.1 x10^3/uL (0.0-0.2) Sodium Level 141 mmol/L (136-145) Potassium Level 3.5 mmol/L (3.5-5.1) Chloride Level 106 mmol/L (98-107) Carbon Dioxide Level 27 mmol/L (21-32) Anion Gap 8 (6-14) Blood Urea Nitrogen 31 mg/dL (8-26) Creatinine 0.9 mg/dL (0.7-1.3) Estimated GFR (Cockcroft-Gault) 85.2 BUN/Creatinine Ratio 34 (6-20) Glucose Level 141 mg/dL (70-99) Calcium Level 8.1 mg/dL (8.5-10.1) Total Bilirubin 1.1 mg/dL (0.2-1.0) Aspartate Amino Transf (AST/SGOT) 117 U/L (15-37) Alanine Aminotransferase (ALT/SGPT) 128 U/L (16-63) Alkaline Phosphatase 66 U/L (46-116) Total Protein 6.1 g/dL (6.4-8.2) Albumin 2.6 g/dL (3.4-5.0) Albumin/Globulin Ratio 0.7 (1.0-1.7) Glucose (Fingerstick) 129 mg/dL (70-99) Medications Current Medications Heparin Sodium/ Sodium Chloride 0 ml @ As Directed STK-MED ONCE .ROUTE ; Start 01/12/20 at 12:25; Stop 01/12/20 at 12:25; Status DC Fentanyl Citrate (Fentanyl 2ml Vial) 100 mcg STK-MED ONCE .ROUTE ; Start 01/12/20 at 12:26; Stop 01/12/20 at 12:26; Status DC Midazolam HCl (Versed) 2 mg STK-MED ONCE .ROUTE ; Start 01/12/20 at 12:26; Stop 01/12/20 at 12:26; Status DC Iodixanol (Visipaque 320) 100 ml STK-MED ONCE .ROUTE ; Start 01/12/20 at 12:26; Stop 01/12/20 at 12:26; Status DC Lidocaine HCl (Lidocaine 1% 20ml Vial) 20 ml STK-MED ONCE .ROUTE ; Start 01/12/20 at 12:26; Stop 01/12/20 at 12:27; Status DC Amiodarone HCl 450 mg/Dextrose 259 ml @ 0 mls/hr CONT PRN IV SEE I/O RECORD; Start 01/12/20 at 12:45; Status UNV Amiodarone HCl 450 mg/Dextrose 259 ml @ 33 mls/hr CONT PRN IV SEE I/O RECORD Last administered on 01/13/20at 03:07; Start 01/12/20 at 12:45; Stop 01/13/20 at 03:07; Status DC Fentanyl Citrate (Fentanyl 2ml Vial) 100 mcg 1X ONCE IV Last administered on 01/12/20at 12:54; Start 01/12/20 at 13:00; Stop 01/12/20 at 13:01; Status DC Midazolam HCl (Versed) 2 mg 1X ONCE IV Last administered on 01/12/20at 12:54; Start 01/12/20 at 13:00; Stop 01/12/20 at 13:01; Status DC Magnesium Sulfate/ Dextrose 100 ml @ 100 mls/hr 1X ONCE IV ; Start 01/12/20 at 13:00; Stop 01/12/20 at 13:59; Status DC Buspirone HCl (Buspar) 30 mg Q8H NG ; Start 01/12/20 at 13:00; Stop 01/12/20 at 17:03; Status DC Acetaminophen (Tylenol) 650 mg Q4H NG ; Start 01/12/20 at 13:00; Stop 01/12/20 at 21:13; Status DC Acetaminophen (Tylenol Supp) 650 mg PRN Q4HRS PRN AL IF NO NG DOSE GIVEN Last administered on 01/15/20at 13:13; Start 01/12/20 at 12:45 Artificial Tears (Artificial Tears) 1 drop Q6HRS OU ; Start 01/12/20 at 18:00; Stop 01/12/20 at 21:13; Status DC Artificial Tears (Artificial Tears) 1 drop PRN Q15MIN PRN OU DRY EYE Last administered on 01/14/20at 13:16; Start 01/12/20 at 12:45 Heparin Sodium (Porcine) (Heparin Sodium) 5,000 unit BID SQ Last administered on 01/12/20at 21:19; Start 01/12/20 at 21:00; Stop 01/13/20 at 15:08; Status DC Pantoprazole Sodium (PROTONIX VIAL for IV PUSH) 40 mg DAILY IVP ; Start 01/13/20 at 09:00; Stop 01/12/20 at 17:03; Status DC Fentanyl Citrate 30 ml @ 0 mls/hr CONT PRN IV PER PROTOCOL.; Start 01/12/20 at 12:45 Propofol 100 ml @ 0 mls/hr CONT PRN IV PER PROTOCOL.; Start 01/12/20 at 12:45 Midazolam HCl 100 ml @ 0 mls/hr CONT PRN IV PER PROTOCOL. Last administered on 01/12/20at 13:32; Start 01/12/20 at 12:45 Vecuronium Powell (Norcuron Bolus) 10 mg PRN Q1HR PRN IV SHIVERING; Start 01/12/20 at 12:45 Fentanyl Citrate 30 ml @ 0 mls/hr CONT PRN IV SEE PROTOCOL; Start 01/12/20 at 13:00; Status UNV Fentanyl Citrate (Fentanyl 2ml Vial) 25 mcg PRN Q1HR PRN IV SEE COMMENTS; Start 01/12/20 at 13:00 Fentanyl Citrate (Fentanyl 2ml Vial) 50 mcg PRN Q1HR PRN IV SEE COMMENTS Last administered on 01/14/20at 21:00; Start 01/12/20 at 13:00 Chlorhexidine Gluconate (Peridex) 15 ml BID MM ; Start 01/12/20 at 21:00; Stop 01/12/20 at 17:03; Status DC Midazolam HCl 100 ml @ 0 mls/hr CONT PRN IV SEE PROTOCOL; Start 01/12/20 at 13:00; Status UNV Potassium Chloride/Water 100 ml @ 50 mls/hr 1X ONCE IV Last administered on at 14:00; Start 01/12/20 at 14:00; Stop 01/12/20 at 15:59; Status DC Dopamine HCl/ Dextrose 250 ml @ 17.944 mls/ hr CONT PRN PRN IV SEE PROTOCOL; Start 01/12/20 at 16:49 Famotidine (Pepcid Vial) 20 mg BID IVP Last administered on 01/15/20at 08:02; Start 01/12/20 at 21:00 Potassium Chloride/Water 100 ml @ 100 mls/hr Q1H IV Last administered on 01/12/20at 20:26; Start 01/12/20 at 17:30; Stop 01/12/20 at 19:29; Status DC Sodium Chloride 1,000 ml @ 100 mls/hr Q10H IV Last administered on 01/15/20at 08:08; Start 01/12/20 at 18:30 Acetaminophen (Tylenol) 650 mg PRN Q6HRS PRN PEG MILD PAIN / TEMP > 100.3'F Last administered on 01/13/20at 04:16; Start 01/13/20 at 04:15 Magnesium Sulfate/ Dextrose 100 ml @ 100 mls/hr 1X ONCE IV Last administered on 01/13/20at 07:59; Start 01/13/20 at 08:00; Stop 01/13/20 at 08:59; Status DC Nicardipine HCl 50 mg/Sodium Chloride 250 ml @ 25 mls/hr CONT PRN IV SEE I/O RECORD Last administered on 01/14/20at 00:22; Start 01/13/20 at 09:00 Amiodarone HCl 450 mg/Dextrose 259 ml @ 17 mls/hr CONT PRN IV SEE I/O RECORD Last administered on 01/14/20at 21:32; Start 01/13/20 at 11:30 Insulin Human Lispro (HumaLOG) 0-7 UNITS Q6HRS SQ ; Start 01/13/20 at 13:15 Dextrose (Dextrose 50%-Water Syringe) 12.5 gm PRN Q15MIN PRN IV SEE COMMENTS; Start 01/13/20 at 13:15 Heparin Sodium/ Dextrose 250 ml @ 0 mls/hr CONT PRN IV PER PROTOCOL Last administered on 01/15/20at 06:35; Start 01/13/20 at 15:30 Heparin Sodium (Porcine) (Heparin Sodium) 2,300 unit PRN Q6HRS PRN IV FOR UFH LEVEL LESS THAN 0.2 Last administered on 01/14/20at 07:56; Start 01/13/20 at 15:30 Amiodarone HCl 450 mg/Dextrose 259 ml @ 0 mls/hr DAILY IV ; Start 01/13/20 at 15:45; Status UNV Aspirin (Ecotrin) 81 mg DAILYWBKFT PO ; Start 01/14/20 at 15:00; Stop 01/15/20 at 07:44; Status DC Aspirin (Aspirin Chewable) 81 mg DAILYWBKFT PO ; Start 01/15/20 at 08:00; Stop 01/15/20 at 11:55; Status DC Aspirin (Aspirin Rectal Supp) 300 mg DAILY08 AL ; Start 01/16/20 at 08:00 Amino Acids/ Glycerin/ Electrolytes 1,000 ml @ 80 mls/hr [id number] IV Last administered on 01/15/20at 12:57; Start 01/15/20 at 12:30 Labetalol HCl (Normodyne Iv Push) 10 mg PRN Q2HR PRN IVP HYPERTENSION; Start 01/15/20 at 14:00 Active Scripts Active Reported Vitamin D3 Complete Caplet (Mv-Mn/Iron/Fa/Herbal Cmplx#190) 1 Each Tablet 1 Each PO BID Metformin Hcl 1,000 Mg Tablet 1,000 Mg PO BIDWMEALS Adult Low Dose Aspirin Ec (Aspirin) 81 Mg Tablet.dr 81 Mg PO DAILY Metoprolol Tartrate 25 Mg Tablet 25 Mg PO BID Lisinopril 20 Mg Tablet 20 Mg PO DAILY Plavix (Clopidogrel Bisulfate) 75 Mg Tablet 75 Mg PO DAILY Atorvastatin Calcium 80 Mg Tablet 80 Mg PO DAILY Fish Oil 1,200 Mg Fish Oil (Fish Oil/Dha/Epa) 1 Each Capsule 2,400 Mg PO DAILY Vitals/I & O Vital Sign - Last 24 Hours 01/14/20 01/14/20 01/14/20 01/14/20 15:34 16:00 16:00 16:04 Temp 101.7 101.7 Pulse 84 81 Resp B/P (MAP) 138/72 (94) 143/75 (97) Pulse Ox 95 97 96 O2 Delivery Ventilator Ventilator Mechanical Ventilator Ventilator 01/14/20 01/14/20 01/14/20 01/14/20 17:29 18:00 18:05 19:00 Temp 101.5 101.5 Pulse 75 82 82 Resp 29 B/P (MAP) 147/76 (99) 148/75 (99) 152/75 (100) Pulse Ox 97 97 98 98 O2 Delivery Ventilator Ventilator Ventilator Ventilator 01/14/20 01/14/20 01/14/20 01/14/20 19:56 20:00 20:00 21:00 Temp 101.3 101.3 Pulse 80 Resp B/P (MAP) 145/77 (99) Pulse Ox 98 98 98 O2 Delivery Ventilator Mechanical Ventilator Ventilator Ventilator 01/14/20 01/14/20 01/14/20 01/14/20 21:00 21:30 22:00 23:00 Temp 101.3 100.9 100.9 101.3 100.9 100.9 Pulse 81 79 79 Resp 27 B/P (MAP) 147/73 (97) 148/69 (95) 142/72 (95) Pulse Ox 96 98 95 98 O2 Delivery Ventilator Ventilator Ventilator Ventilator 01/14/20 01/15/20 01/15/20 01/15/20 23:55 00:00 00:00 01:00 Temp 100.9 100.9 100.9 100.9 Pulse 74 75 Resp 23 B/P (MAP) 140/73 (95) 141/69 (93) Pulse Ox 98 98 99 O2 Delivery Ventilator Ventilator Mechanical Ventilator Ventilator 01/15/20 01/15/20 01/15/20 01/15/20 01:30 02:00 03:00 04:00 Temp 101.3 101.5 101.3 101.5 Pulse 72 69 Resp 24 25 B/P (MAP) 150/64 (92) 123/62 (82) Pulse Ox 99 99 97 O2 Delivery Ventilator Ventilator Ventilator Mechanical Ventilator 01/15/20 01/15/20 01/15/20 01/15/20 04:00 05:00 05:17 06:00 Temp 101.7 101.8 101.8 101.7 101.8 101.8 Pulse 70 67 68 Resp 26 26 23 B/P (MAP) 129/59 (82) 132/55 (80) 152/70 (97) Pulse Ox 98 98 98 99 O2 Delivery Ventilator Ventilator Ventilator Ventilator 01/15/20 01/15/20 01/15/20 01/15/20 06:55 07:49 08:00 08:15 Temp 102.0 102.2 102.0 102.2 Pulse 68 73 Resp 21 22 B/P (MAP) 155/76 (102) 162/78 (106) Pulse Ox 99 100 96 O2 Delivery Ventilator Ventilator Mechanical Ventilator Ventilator 01/15/20 01/15/20 01/15/20 01/15/20 09:15 10:00 10:00 11:27 Temp 102.2 101.8 101.8 102.2 101.8 101.8 Pulse 70 72 72 Resp 24 24 24 B/P (MAP) 175/76 (109) 170/76 (107) 174/76 (108) Pulse Ox 99 99 100 99 O2 Delivery Ventilator Ventilator Ventilator Ventilator 01/15/20 01/15/20 01/15/20 01/15/20 11:57 12:13 12:18 13:13 Temp 102.4 102.7 102.4 102.7 Pulse 70 69 Resp 24 28 B/P (MAP) 180/82 (114) 161/69 (99) Pulse Ox 100 99 100 O2 Delivery Mechanical Ventilator Ventilator Ventilator Ventilator Intake and Output 01/14/20 01/14/20 01/15/20 15:00 23:00 07:00 Intake Total 57 ml 1593 ml 1872 ml Output Total 240 ml 1055 ml 1049 ml Balance -183 ml 538 ml 823 ml BERRY VENTURA MD January 15, 2020 14:06
[2020-01-15] MEDS: AMIODARONE 450 MG in IV DEXTROSE 5% 250 ML IV PRN (14:43)
--- NOTE | 2020-01-15 14:45 | NUR ---
SS following up with discharge planning. SS discussed with pt RN. Pt remains on the vent at this time. DNR now. Prognosis poor per pt's RN. SS will continue to follow for discharge planning.
--- NOTE | 2020-01-15 16:20 | NUR ---
Cooling blanket started on patient r/t increasing fever. Patient is unresponsive with no PERRL,no cornea reflex, no response to pain. Cardene restarted for increased BP 193/80. Patient urine has increased greatly (500 ml in one hour). Sedation has been off since 01/12/20.
[2020-01-15] MEDS ORDERED: SCOPOLAMINE 1.5MG PATCH. TD SCH (18:00)
[2020-01-16] VITALS (16 sets, daily range): BP systolic 104–166; BP diastolic 68–81
[2020-01-16] MEDS: AMINO AC 3%/ELECTROLYTE/GLYCER 1,000 ML IV SCH (03:40)
[2020-01-16] MEDS: IV NORMAL SALINE 1000ML BAG 1,000 ML IV SCH (03:41)
[2020-01-16] MEDS: HEPARIN 25,000UTS/250ML PREMIX 250 ML IV PRN (03:41)
[2020-01-16] MEDS: INSULIN LISPRO 300 UNITS/3 ML VIAL. SQ SCH ×2 (06:00→12:00)
[2020-01-16 06:31] LABS: CREATININE 0.8 mg/dL (0.7-1.3); GFR 97.6
[2020-01-16 06:35] LABS: POTASSIUM 2.8 mmol/L (3.5-5.1)
[2020-01-16 07:02] LABS: BASO % 0 % (0-3); EOS % 0 % (0-3); HEMATOCRIT 47.3 % (39.0-53.0); HEMOGLOBIN 15.6 g/dL (13.0-17.5); LYMPH # 1.5 x10^3/uL (1.0-4.8); LYMPH % 7 % (24-48); MEAN CORPUSCULAR HEMOGLOBIN 31 pg (25-35); MEAN CORPUSCULAR HGB CONC 33 g/dL (31-37); MEAN CORPUSCULAR VOLUME 92 fL (79-100); MONO # 1.5 x10^3/uL (0.0-1.1); MONO % 7 % (0-9); NEUT # 18.5 x10^3/uL (1.8-7.7); NEUT % 86 % (31-73); PLATELET COUNT 277 x10^3/uL (140-400); RED BLOOD COUNT 5.12 x10^6/uL (4.30-5.70); RED CELL DISTRIBUTION WIDTH 13.5 % (11.5-14.5); WHITE BLOOD COUNT 21.6 x10^3/uL (4.0-11.0)
[2020-01-16] MEDS: AMIODARONE 450 MG in IV DEXTROSE 5% 250 ML IV PRN (07:13)
[2020-01-16] MEDS ORDERED: POTASSIUM CHLORIDE 40 MEQ in IV DEXTROSE 5% 1,000 ML IV SCH (08:00)
[2020-01-16] MEDS ORDERED: POTASSIUM CHLORIDE 20MEQ 100 ML IV SCH (08:00)
[2020-01-16] MEDS ORDERED: ASPIRIN RECTAL 300 MG SUPP. PR SCH (08:00)
--- NOTE | 2020-01-16 08:31 | RAD ---
PORTABLE CHEST 1V Clinical History: Follow-up, intubated Technique: AP view of the chest was obtained at 01/16/2020 9:00 AM. Comparison: January 15, 2020. Findings: The cardiomediastinal silhouette is normal. The pulmonary vasculature is normal. There are linear opacities in the lung bases left more than right. Endotracheal tube NG tube and right subclavian line are again seen unchanged. Impression: Mild basal infiltrates could be discoid atelectasis or pneumonia. No change. Electronically signed by: Doni Rodas III, MD (01/16/2020 8:28 AM) [id number]
[2020-01-16] MEDS: FAMOTIDINE 20 MG/2 ML VIAL IVP SCH (08:47)
[2020-01-16 08:51] LABS: BASE EXCESS ABG 4 mmol/L (-3-3); CORRECTED PCO2 ABG 36 mmHg; CORRECTED PH ABG 7.49; CORRECTED PO2 ABG 101 mmHg; HCO3 ABG 26 mmol/L (21-28); PCO2 ABG 33 mmHg (35-46); PO2 ABG 89 mmHg (65-108); SAT O2 ABG 97 % (92-99)
[2020-01-16 09:59] LABS: FIO2 ABG 40
--- NOTE | 2020-01-16 11:00 | NUR ---
Patient's wanted to discuss how and what is involved when withdrawing care. Patient's was tearful, request for their 2 sons to come here to see their dad. Request was approved. MTN was updated.
--- NOTE | 2020-01-16 11:12 | PDOC ---
PROGRESS NOTES Assessment Problems Medical Problems: (1) Cardiac arrest Status: Acute Anoxic encephalopathy, status-post V. tach cardiac arrest, hypothermia protocol was not used. Not making any improvement EEG 01/13 shows severe diffuse slowing of background, no seizures Possible posterior right parietal lobe acute or subacute infarct, I am not impressed with the findings. He could have had an infarct during the resuscitations. Plan Continue supportive care Okay for heparin regarding cardiac issues Prognosis is poor Subjective None Objective Vital Signs Date Time Temp Pulse Resp B/P (MAP) Pulse Ox O2 Delivery O2 Flow Rate FiO2 01/16/20 09:53 102.6 91 22 140/73 (95) 98 Ventilator 102.6 Intake and Output 01/16/20 07:00 Intake Total 4519.2 ml Output Total 7000 ml Balance -2480.8 ml IV Total 4519.2 ml Output Urine Total 5500 ml Gastric Drainage Total 1500 ml PHYSICAL EXAM On ventilator, triggers vent No pupillary response No oculocephalic response CN: no focal findings. Muscle tone: normal. Muscle strength: no withdrawal to pain DTR: 0+ Plantar reflex: silent Gait: not examined Sensory exam: not tested. Cerebellar: not tested Review of Relevant I have reviewed the following items fr[place] (where applicable) has been applied. Labs Laboratory Tests Test 01/14/20 11:53 01/14/20 12:25 01/14/20 23:00 01/14/20 23:02 Glucose (Fingerstick) 149 mg/dL (70-99) 163 mg/dL (70-99) Heparin Anti-Xa Act, Unfractionated 0.61 IU/mL (0.30-0.70) 0.48 IU/mL (0.30-0.70) Test 01/15/20 05:15 01/15/20 05:23 01/15/20 08:00 01/15/20 08:15 Heparin Anti-Xa Act, Unfractionated 0.32 IU/mL (0.30-0.70) Glucose (Fingerstick) 142 mg/dL (70-99) O2 Saturation 98 % (92-99) Arterial Blood pH 7.50 (7.35-7.45) Arterial Blood pH (Temp corrected) 7.46 Arterial Blood pCO2 at Patient Temp 29 mmHg (35-46) Arterial Blood pCO2 (Temp correct) 32 mmHg Arterial Blood pO2 at Patient Temp 96 mmHg (65-108) Arterial Blood pO2 (Temp corrected) 106 mmHg Arterial Blood HCO3 22 mmol/L (21-28) Arterial Blood Base Excess 0 mmol/L (-3-3) FiO2 40%+5 White Blood Count 21.5 x10^3/uL (4.0-11.0) Red Blood Count 4.53 x10^6/uL (4.30-5.70) Hemoglobin 13.8 g/dL (13.0-17.5) Hematocrit 41.7 % (39.0-53.0) Mean Corpuscular Volume 92 fL (79-100) Mean Corpuscular Hemoglobin 30 pg (25-35) Mean Corpuscular Hemoglobin Concent 33 g/dL (31-37) Red Cell Distribution Width 13.0 % (11.5-14.5) Platelet Count 257 x10^3/uL (140-400) Neutrophils (%) (Auto) 81 % (31-73) Lymphocytes (%) (Auto) 11 % (24-48) Monocytes (%) (Auto) 8 % (0-9) Eosinophils (%) (Auto) 0 % (0-3) Basophils (%) (Auto) 1 % (0-3) Neutrophils # (Auto) 17.4 x10^3/uL (1.8-7.7) Lymphocytes # (Auto) 2.3 x10^3/uL (1.0-4.8) Monocytes # (Auto) 1.7 x10^3/uL (0.0-1.1) Eosinophils # (Auto) 0.0 x10^3/uL (0.0-0.7) Basophils # (Auto) 0.1 x10^3/uL (0.0-0.2) Sodium Level 141 mmol/L (136-145) Potassium Level 3.5 mmol/L (3.5-5.1) Chloride Level 106 mmol/L (98-107) Carbon Dioxide Level 27 mmol/L (21-32) Anion Gap 8 (6-14) Blood Urea Nitrogen 31 mg/dL (8-26) Creatinine 0.9 mg/dL (0.7-1.3) Estimated GFR (Cockcroft-Gault) 85.2 BUN/Creatinine Ratio 34 (6-20) Glucose Level 141 mg/dL (70-99) Calcium Level 8.1 mg/dL (8.5-10.1) Total Bilirubin 1.1 mg/dL (0.2-1.0) Aspartate Amino Transf (AST/SGOT) 117 U/L (15-37) Alanine Aminotransferase (ALT/SGPT) 128 U/L (16-63) Alkaline Phosphatase 66 U/L (46-116) Total Protein 6.1 g/dL (6.4-8.2) Albumin 2.6 g/dL (3.4-5.0) Albumin/Globulin Ratio 0.7 (1.0-1.7) Test 01/15/20 12:52 01/15/20 17:36 01/15/20 23:50 01/16/20 06:00 Glucose (Fingerstick) 129 mg/dL (70-99) 102 mg/dL (70-99) 158 mg/dL (70-99) White Blood Count 21.6 x10^3/uL (4.0-11.0) Red Blood Count 5.12 x10^6/uL (4.30-5.70) Hemoglobin 15.6 g/dL (13.0-17.5) Hematocrit 47.3 % (39.0-53.0) Mean Corpuscular Volume 92 fL (79-100) Mean Corpuscular Hemoglobin 31 pg (25-35) Mean Corpuscular Hemoglobin Concent 33 g/dL (31-37) Red Cell Distribution Width 13.5 % (11.5-14.5) Platelet Count 277 x10^3/uL (140-400) Neutrophils (%) (Auto) 86 % (31-73) Lymphocytes (%) (Auto) 7 % (24-48) Monocytes (%) (Auto) 7 % (0-9) Eosinophils (%) (Auto) 0 % (0-3) Basophils (%) (Auto) 0 % (0-3) Neutrophils # (Auto) 18.5 x10^3/uL (1.8-7.7) Lymphocytes # (Auto) 1.5 x10^3/uL (1.0-4.8) Monocytes # (Auto) 1.5 x10^3/uL (0.0-1.1) Eosinophils # (Auto) 0.0 x10^3/uL (0.0-0.7) Basophils # (Auto) 0.0 x10^3/uL (0.0-0.2) Heparin Anti-Xa Act, Unfractionated 0.21 IU/mL (0.30-0.70) Sodium Level 154 mmol/L (136-145) Potassium Level 2.8 mmol/L (3.5-5.1) Chloride Level 115 mmol/L (98-107) Carbon Dioxide Level 27 mmol/L (21-32) Anion Gap 12 (6-14) Blood Urea Nitrogen 22 mg/dL (8-26) Creatinine 0.8 mg/dL (0.7-1.3) Estimated GFR (Cockcroft-Gault) 97.6 Glucose Level 190 mg/dL (70-99) Calcium Level 9.0 mg/dL (8.5-10.1) Test 01/16/20 08:00 O2 Saturation 97 % (92-99) Arterial Blood pH 7.52 (7.35-7.45) Arterial Blood pH (Temp corrected) 7.49 Arterial Blood pCO2 at Patient Temp 33 mmHg (35-46) Arterial Blood pCO2 (Temp correct) 36 mmHg Arterial Blood pO2 at Patient Temp 89 mmHg (65-108) Arterial Blood pO2 (Temp corrected) 101 mmHg Arterial Blood HCO3 26 mmol/L (21-28) Arterial Blood Base Excess 4 mmol/L (-3-3) FiO2 40 Laboratory Tests Test 01/15/20 12:52 01/15/20 17:36 01/15/20 23:50 01/16/20 06:00 Glucose (Fingerstick) 129 mg/dL (70-99) 102 mg/dL (70-99) 158 mg/dL (70-99) White Blood Count 21.6 x10^3/uL (4.0-11.0) Red Blood Count 5.12 x10^6/uL (4.30-5.70) Hemoglobin 15.6 g/dL (13.0-17.5) Hematocrit 47.3 % (39.0-53.0) Mean Corpuscular Volume 92 fL (79-100) Mean Corpuscular Hemoglobin 31 pg (25-35) Mean Corpuscular Hemoglobin Concent 33 g/dL (31-37) Red Cell Distribution Width 13.5 % (11.5-14.5) Platelet Count 277 x10^3/uL (140-400) Neutrophils (%) (Auto) 86 % (31-73) Lymphocytes (%) (Auto) 7 % (24-48) Monocytes (%) (Auto) 7 % (0-9) Eosinophils (%) (Auto) 0 % (0-3) Basophils (%) (Auto) 0 % (0-3) Neutrophils # (Auto) 18.5 x10^3/uL (1.8-7.7) Lymphocytes # (Auto) 1.5 x10^3/uL (1.0-4.8) Monocytes # (Auto) 1.5 x10^3/uL (0.0-1.1) Eosinophils # (Auto) 0.0 x10^3/uL (0.0-0.7) Basophils # (Auto) 0.0 x10^3/uL (0.0-0.2) Heparin Anti-Xa Act, Unfractionated 0.21 IU/mL (0.30-0.70) Sodium Level 154 mmol/L (136-145) Potassium Level 2.8 mmol/L (3.5-5.1) Chloride Level 115 mmol/L (98-107) Carbon Dioxide Level 27 mmol/L (21-32) Anion Gap 12 (6-14) Blood Urea Nitrogen 22 mg/dL (8-26) Creatinine 0.8 mg/dL (0.7-1.3) Estimated GFR (Cockcroft-Gault) 97.6 Glucose Level 190 mg/dL (70-99) Calcium Level 9.0 mg/dL (8.5-10.1) Test 01/16/20 08:00 O2 Saturation 97 % (92-99) Arterial Blood pH 7.52 (7.35-7.45) Arterial Blood pH (Temp corrected) 7.49 Arterial Blood pCO2 at Patient Temp 33 mmHg (35-46) Arterial Blood pCO2 (Temp correct) 36 mmHg Arterial Blood pO2 at Patient Temp 89 mmHg (65-108) Arterial Blood pO2 (Temp corrected) 101 mmHg Arterial Blood HCO3 26 mmol/L (21-28) Arterial Blood Base Excess 4 mmol/L (-3-3) FiO2 40 Medications Current Medications Heparin Sodium/ Sodium Chloride 0 ml @ As Directed STK-MED ONCE .ROUTE ; Start 01/12/20 at 12:25; Stop 01/12/20 at 12:25; Status DC Fentanyl Citrate (Fentanyl 2ml Vial) 100 mcg STK-MED ONCE .ROUTE ; Start 01/12/20 at 12:26; Stop 01/12/20 at 12:26; Status DC Midazolam HCl (Versed) 2 mg STK-MED ONCE .ROUTE ; Start 01/12/20 at 12:26; Stop 01/12/20 at 12:26; Status DC Iodixanol (Visipaque 320) 100 ml STK-MED ONCE .ROUTE ; Start 01/12/20 at 12:26; Stop 01/12/20 at 12:26; Status DC Lidocaine HCl (Lidocaine 1% 20ml Vial) 20 ml STK-MED ONCE .ROUTE ; Start 01/12/20 at 12:26; Stop 01/12/20 at 12:27; Status DC Amiodarone HCl 450 mg/Dextrose 259 ml @ 0 mls/hr CONT PRN IV SEE I/O RECORD; Start 01/12/20 at 12:45; Status UNV Amiodarone HCl 450 mg/Dextrose 259 ml @ 33 mls/hr CONT PRN IV SEE I/O RECORD Last administered on 01/13/20at 03:07; Start 01/12/20 at 12:45; Stop 01/13/20 at 03:07; Status DC Fentanyl Citrate (Fentanyl 2ml Vial) 100 mcg 1X ONCE IV Last administered on 01/12/20at 12:54; Start 01/12/20 at 13:00; Stop 01/12/20 at 13:01; Status DC Midazolam HCl (Versed) 2 mg 1X ONCE IV Last administered on 01/12/20at 12:54; Start 01/12/20 at 13:00; Stop 01/12/20 at 13:01; Status DC Magnesium Sulfate/ Dextrose 100 ml @ 100 mls/hr 1X ONCE IV ; Start 01/12/20 at 13:00; Stop 01/12/20 at 13:59; Status DC Buspirone HCl (Buspar) 30 mg Q8H NG ; Start 01/12/20 at 13:00; Stop 01/12/20 at 17:03; Status DC Acetaminophen (Tylenol) 650 mg Q4H NG ; Start 01/12/20 at 13:00; Stop 01/12/20 at 21:13; Status DC Acetaminophen (Tylenol Supp) 650 mg PRN Q4HRS PRN DC IF NO NG DOSE GIVEN Last administered on 01/15/20at 13:13; Start 01/12/20 at 12:45 Artificial Tears (Artificial Tears) 1 drop Q6HRS OU ; Start 01/12/20 at 18:00; Stop 01/12/20 at 21:13; Status DC Artificial Tears (Artificial Tears) 1 drop PRN Q15MIN PRN OU DRY EYE Last administered on 01/14/20at 13:16; Start 01/12/20 at 12:45 Heparin Sodium (Porcine) (Heparin Sodium) 5,000 unit BID SQ Last administered on 01/12/20at 21:19; Start 01/12/20 at 21:00; Stop 01/13/20 at 15:08; Status DC Pantoprazole Sodium (PROTONIX VIAL for IV PUSH) 40 mg DAILY IVP ; Start 01/13/20 at 09:00; Stop 01/12/20 at 17:03; Status DC Fentanyl Citrate 30 ml @ 0 mls/hr CONT PRN IV PER PROTOCOL.; Start 01/12/20 at 12:45 Propofol 100 ml @ 0 mls/hr CONT PRN IV PER PROTOCOL.; Start 01/12/20 at 12:45 Midazolam HCl 100 ml @ 0 mls/hr CONT PRN IV PER PROTOCOL. Last administered on 01/12/20at 13:32; Start 01/12/20 at 12:45 Vecuronium [place] (Norcuron Bolus) 10 mg PRN Q1HR PRN IV SHIVERING; Start 01/12/20 at 12:45 Fentanyl Citrate 30 ml @ 0 mls/hr CONT PRN IV SEE PROTOCOL; Start 01/12/20 at 13:00; Status UNV Fentanyl Citrate (Fentanyl 2ml Vial) 25 mcg PRN Q1HR PRN IV SEE COMMENTS; Start 01/12/20 at 13:00 Fentanyl Citrate (Fentanyl 2ml Vial) 50 mcg PRN Q1HR PRN IV SEE COMMENTS Last administered on 01/14/20at 21:00; Start 01/12/20 at 13:00 Chlorhexidine Gluconate (Peridex) 15 ml BID MM ; Start 01/12/20 at 21:00; Stop 01/12/20 at 17:03; Status DC Midazolam HCl 100 ml @ 0 mls/hr CONT PRN IV SEE PROTOCOL; Start 01/12/20 at 13:00; Status UNV Potassium Chloride/Water 100 ml @ 50 mls/hr 1X ONCE IV Last administered on 01/12/20at 14:00; Start 01/12/20 at 14:00; Stop 01/12/20 at 15:59; Status DC Dopamine HCl/ Dextrose 250 ml @ 17.944 mls/ hr CONT PRN PRN IV SEE PROTOCOL; Start 01/12/20 at 16:49 Famotidine (Pepcid Vial) 20 mg BID IVP Last administered on 01/16/20at 08:47; Start 01/12/20 at 21:00 Potassium Chloride/Water 100 ml @ 100 mls/hr Q1H IV Last administered on 01/12/20at 20:26; Start 01/12/20 at 17:30; Stop 01/12/20 at 19:29; Status DC Sodium Chloride 1,000 ml @ 100 mls/hr Q10H IV Last administered on 01/16/20at 03:41; Start 01/12/20 at 18:30 Acetaminophen (Tylenol) 650 mg PRN Q6HRS PRN PEG MILD PAIN / TEMP > 100.3'F Last administered on 01/13/20at 04:16; Start 01/13/20 at 04:15 Magnesium Sulfate/ Dextrose 100 ml @ 100 mls/hr 1X ONCE IV Last administered on 01/13/20at 07:59; Start 01/13/20 at 08:00; Stop 01/13/20 at 08:59; Status DC Nicardipine HCl 50 mg/Sodium Chloride 250 ml @ 25 mls/hr CONT PRN IV SEE I/O RECORD Last administered on 01/15/20at 16:30; Start 01/13/20 at 09:00 Amiodarone HCl 450 mg/Dextrose 259 ml @ 17 mls/hr CONT PRN IV SEE I/O RECORD Last administered on 01/16/20at 07:13; Start 01/13/20 at 11:30 Insulin Human Lispro (HumaLOG) 0-7 UNITS Q6HRS SQ ; Start 01/13/20 at 13:15 Dextrose (Dextrose 50%-Water Syringe) 12.5 gm PRN Q15MIN PRN IV SEE COMMENTS; Start 01/13/20 at 13:15 Heparin Sodium/ Dextrose 250 ml @ 0 mls/hr CONT PRN IV PER PROTOCOL Last administered on 01/16/20at 03:41; Start 01/13/20 at 15:30 Heparin Sodium (Porcine) (Heparin Sodium) 2,300 unit PRN Q6HRS PRN IV FOR UFH LEVEL LESS THAN 0.2 Last administered on 01/14/20at 07:56; Start 01/13/20 at 15:30 Amiodarone HCl 450 mg/Dextrose 259 ml @ 0 mls/hr DAILY IV ; Start 01/13/20 at 15:45; Status UNV Aspirin (Ecotrin) 81 mg DAILYWBKFT PO ; Start 01/14/20 at 15:00; Stop 01/15/20 at 07:44; Status DC Aspirin (Aspirin Chewable) 81 mg DAILYWBKFT PO ; Start 01/15/20 at 08:00; Stop 01/15/20 at 11:55; Status DC Aspirin (Aspirin Rectal Supp) 300 mg DAILY08 DC ; Start 01/16/20 at 08:00 Amino Acids/ Glycerin/ Electrolytes 1,000 ml @ 80 mls/hr [id number] IV Last administered on 01/16/20at 03:40; Start 01/15/20 at 12:30 Labetalol HCl (Normodyne Iv Push) 10 mg PRN Q2HR PRN IVP HYPERTENSION Last administered on 01/15/20at 14:16; Start 01/15/20 at 14:00 Scopolamine (Transderm-Scop) 1 patch Q3DAYS TD Last administered on 01/15/20at 18:20; Start 01/15/20 at 18:00 Potassium Chloride/Water 100 ml @ 100 mls/hr Q1H IV ; Start 01/16/20 at 08:00; Stop 01/16/20 at 09:59; Status Cancel Potassium Chloride 40 meq/ Dextrose 1,020 ml @ 75 mls/hr [id number] IV Last administered on 01/16/20at 08:42; Start 01/16/20 at 08:00; Stop 01/17/20 at 07:59 Amiodarone HCl (Cordarone) 300 mg STK-MED ONCE .ROUTE ; Start 08/14/20 at 08:00; Stop 01/16/20 at 08:52; Status DC Sodium Bicarbonate (Sodium Bicarb Adult 8.4% Syr) 100 meq STK-MED ONCE .ROUTE ; Start 08/14/20 at 08:00; Stop 01/16/20 at 08:52; Status DC Epinephrine HCl (EPINEPHrine SYRINGE) 4 mg STK-MED ONCE .ROUTE ; Start 08/14/20 at 08:00; Stop 01/16/20 at 08:52; Status DC Dopamine HCl/ Dextrose (DOPamine 400MG/ 250ML PREMIX) 400 mg STK-MED ONCE IV ; Start 08/14/20 at 08:00; Stop 01/16/20 at 08:52; Status DC Active Scripts Active Reported Vitamin D3 Complete Caplet (Mv-Mn/Iron/Fa/Herbal Cmplx#190) 1 Each Tablet 1 Each PO BID Metformin Hcl 1,000 Mg Tablet 1,000 Mg PO BIDWMEALS Adult Low Dose Aspirin Ec (Aspirin) 81 Mg Tablet.dr 81 Mg PO DAILY Metoprolol Tartrate 25 Mg Tablet 25 Mg PO BID Lisinopril 20 Mg Tablet 20 Mg PO DAILY Plavix (Clopidogrel Bisulfate) 75 Mg Tablet 75 Mg PO DAILY Atorvastatin Calcium 80 Mg Tablet 80 Mg PO DAILY Fish Oil 1,200 Mg Fish Oil (Fish Oil/Dha/Epa) 1 Each Capsule 2,400 Mg PO DAILY Vitals/I & O Vital Sign - Last 24 Hours 01/15/20 01/15/20 01/15/20 01/15/20 11:27 11:57 12:13 12:18 Temp 101.8 102.4 101.8 102.4 Pulse 72 70 Resp 24 24 B/P (MAP) 174/76 (108) 180/82 (114) Pulse Ox 99 100 99 O2 Delivery Ventilator Mechanical Ventilator Ventilator Ventilator 01/15/20 01/15/20 01/15/20 01/15/20 13:13 14:14 14:16 15:26 Temp 102.7 102.9 102.7 102.9 Pulse 69 69 69 Resp 28 29 B/P (MAP) 161/69 (99) 170/75 (106) 170/75 Pulse Ox 100 100 100 O2 Delivery Ventilator Ventilator Ventilator 01/15/20 01/15/20 01/15/20 01/15/20 15:30 16:05 16:19 16:45 Temp 103.5 103.6 103.5 103.6 Pulse 64 71 Resp 24 32 B/P (MAP) 152/67 (95) 152/67 (95) 193/80 (117) Pulse Ox 100 99 O2 Delivery Ventilator Ventilator Mechanical Ventilator 01/15/20 01/15/20 01/15/20 01/15/20 16:53 17:14 17:53 17:58 Temp 103.3 102.2 103.3 102.2 Pulse 78 87 Resp 32 35 B/P (MAP) 160/71 (100) 138/65 (89) 142/64 (90) Pulse Ox 99 99 98 O2 Delivery Ventilator Ventilator Ventilator 01/15/20 01/15/20 01/15/20 01/15/20 19:00 19:36 19:54 20:00 Temp 100.6 98.9 100.6 98.9 Pulse 88 80 Resp 33 33 B/P (MAP) 144/69 (94) 152/77 (102) Pulse Ox 98 99 98 O2 Delivery Ventilator Ventilator Mechanical Ventilator Ventilator 01/15/20 01/15/20 01/15/20 01/15/20 21:00 21:15 21:30 21:59 Pulse 87 84 80 85 Resp 28 28 B/P (MAP) 136/78 (97) 140/81 (100) 146/80 (102) 148/80 (102) Pulse Ox 99 98 O2 Delivery Ventilator Ventilator Ventilator Ventilator 01/15/20 01/15/20 01/15/20 01/16/20 23:00 23:55 23:56 00:00 Temp 95.7 95.7 Pulse 81 78 Resp 33 27 B/P (MAP) 148/87 (107) 150/81 (104) Pulse Ox 99 100 99 O2 Delivery Ventilator Ventilator Ventilator Mechanical Ventilator 01/16/20 01/16/20 01/16/20 01/16/20 01:00 02:00 02:10 03:00 Temp 95.0 95.7 96.6 95.0 95.7 96.6 Pulse 72 72 70 Resp 29 20 24 B/P (MAP) 150/79 (102) 148/70 (96) 153/81 (105) Pulse Ox 98 99 99 99 O2 Delivery Ventilator Ventilator Ventilator Ventilator 01/16/20 01/16/20 01/16/20 01/16/20 04:00 04:00 04:15 05:00 Temp 97.0 98.2 97.0 98.2 Pulse 72 76 Resp 16 16 B/P (MAP) 137/74 (95) 151/75 (100) Pulse Ox 94 99 99 O2 Delivery Mechanical Ventilator Ventilator Ventilator Ventilator 01/16/20 01/16/20 01/16/20 01/16/20 06:05 07:02 07:35 08:04 Temp 99.9 100.9 102.0 99.9 100.9 102.0 Pulse 80 77 82 Resp 15 28 31 B/P (MAP) 166/80 (108) 154/75 (101) 164/73 (103) Pulse Ox 98 99 98 O2 Delivery Ventilator Ventilator Mechanical Ventilator Ventilator 01/16/20 01/16/20 01/16/20 08:09 08:56 09:53 Temp 102.6 102.6 102.6 102.6 Pulse 92 91 Resp 20 22 B/P (MAP) 158/70 (99) 140/73 (95) Pulse Ox 99 98 98 O2 Delivery Ventilator Ventilator Ventilator Intake and Output 01/15/20 01/15/20 01/16/20 15:00 23:00 07:00 Intake Total 1712 ml 2807.2 ml Output Total 510 ml 4065 ml 2425 ml Balance -510 ml -2353 ml 382.2 ml JONATHAN ADAMES MD January 16, 2020 11:12
--- NOTE | 2020-01-16 12:36 | PDOC ---
JAS TURNER [employer] MANAGER 01/16/20 1236: CARDIO Progress Notes Date and Time Date of Service 01/16/2020 Time of Evaluation 1210 Subjective Subjective: Other (off sedation, not responsive) Vitals Vitals Vital Signs Date Time Temp Pulse Resp B/P (MAP) Pulse Ox O2 Delivery O2 Flow Rate FiO2 01/16/20 12:09 101.5 86 30 156/81 (106) 97 Ventilator 101.5 Weight Weight [ ] Input and Output Intake and Output Intake and Output 01/16/20 07:00 Intake Total 4519.2 ml Output Total 7000 ml Balance -2480.8 ml IV Total 4519.2 ml Output Urine Total 5500 ml Gastric Drainage Total 1500 ml Laboratory Labs Laboratory Tests Test 01/15/20 12:52 01/15/20 17:36 01/15/20 23:50 01/16/20 06:00 Glucose (Fingerstick) 129 mg/dL (70-99) 102 mg/dL (70-99) 158 mg/dL (70-99) White Blood Count 21.6 x10^3/uL (4.0-11.0) Red Blood Count 5.12 x10^6/uL (4.30-5.70) Hemoglobin 15.6 g/dL (13.0-17.5) Hematocrit 47.3 % (39.0-53.0) Mean Corpuscular Volume 92 fL (79-100) Mean Corpuscular Hemoglobin 31 pg (25-35) Mean Corpuscular Hemoglobin Concent 33 g/dL (31-37) Red Cell Distribution Width 13.5 % (11.5-14.5) Platelet Count 277 x10^3/uL (140-400) Neutrophils (%) (Auto) 86 % (31-73) Lymphocytes (%) (Auto) 7 % (24-48) Monocytes (%) (Auto) 7 % (0-9) Eosinophils (%) (Auto) 0 % (0-3) Basophils (%) (Auto) 0 % (0-3) Neutrophils # (Auto) 18.5 x10^3/uL (1.8-7.7) Lymphocytes # (Auto) 1.5 x10^3/uL (1.0-4.8) Monocytes # (Auto) 1.5 x10^3/uL (0.0-1.1) Eosinophils # (Auto) 0.0 x10^3/uL (0.0-0.7) Basophils # (Auto) 0.0 x10^3/uL (0.0-0.2) Heparin Anti-Xa Act, Unfractionated 0.21 IU/mL (0.30-0.70) Sodium Level 154 mmol/L (136-145) Potassium Level 2.8 mmol/L (3.5-5.1) Chloride Level 115 mmol/L (98-107) Carbon Dioxide Level 27 mmol/L (21-32) Anion Gap 12 (6-14) Blood Urea Nitrogen 22 mg/dL (8-26) Creatinine 0.8 mg/dL (0.7-1.3) Estimated GFR (Cockcroft-Gault) 97.6 Glucose Level 190 mg/dL (70-99) Calcium Level 9.0 mg/dL (8.5-10.1) Test 01/16/20 08:00 01/16/20 12:06 O2 Saturation 97 % (92-99) Arterial Blood pH 7.52 (7.35-7.45) Arterial Blood pH (Temp corrected) 7.49 Arterial Blood pCO2 at Patient Temp 33 mmHg (35-46) Arterial Blood pCO2 (Temp correct) 36 mmHg Arterial Blood pO2 at Patient Temp 89 mmHg (65-108) Arterial Blood pO2 (Temp corrected) 101 mmHg Arterial Blood HCO3 26 mmol/L (21-28) Arterial Blood Base Excess 4 mmol/L (-3-3) FiO2 40 Glucose (Fingerstick) 127 mg/dL (70-99) Physical Exam HEENT: Neck Supple W Full Motion Chest: Symmetric LUNGS: Other (mechanical vent) Heart: RRR (SR) Abdomen: Other (soft ) Extremities: No Edema Neurology: other (off sedation, no response) Assessment Assessment 1. OOH arrest secondary to VT, VF. Prolonged CPR prior to ROSC. SR. 2. Acute respiratory failure secondary to cardiac arrest; remains on vent, off sedation. EF nml with Base to mid inferior wall hypokinesis 3. CAD s/p remote PCI of the LAD and RCA. sees [facility] cardiology, Dr. Pierre 4. Hypertension: BP better 5. Hyperlipidemia 6. Diabetes, II 7. Possible CVA Neurology following 8. 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 Leukocytosis/fever: remains febrile 10. NSTEMI: trop noted at 7.5 11. Coffee ground gastric contents via OGT: possibly from gastroesophageal irritation. Hgb and PLT stable. Per PCP Recommendations 1. Continue amiodarone/heparin drip. Could change ASA to rectal. Continue with antipyretics and pepcid. 2. Very poor prognosis. Possible comfort care by tomorrow. Now DNR CHRIS MURRELL MD 01/16/20 1637: CARDIO Progress Notes Assessment Assessment Patient seen and examined I agree with our nurse practitioners assessment. Assessment OOH arrest secondary to VT, VF. Prolonged CPR prior to ROSC. SR on present medications. Acute respiratory failure secondary to cardiac arrest; remains on vent, off sedation. EF nml with Base to mid inferior wall hypokinesis CAD s/p remote PCI of the LAD and RCA. sees cardiology, Dr. Pierre Hypertension: BP better Hyperlipidemia Possible CVA Neurology following Anoxic encephalopathy secondary to prolonged CPR: neurology following NSTEMI: trop noted at 7.5 Chest Pain Indications JAS TURNER APRN January 16, 2020 12:36 CHRIS MURRELL MD January 16, 2020 16:37
--- NOTE | 2020-01-16 13:41 | NUR ---
SS following up with discharge planning. SS reviewed pt chart and discussed with pt RN. Pt remains on the vent at this time and is DNR. Pt's RN reported possible withdrawal of care on 01/17/2020. SS will continue to follow.
--- NOTE | 2020-01-16 14:57 | PDOC ---
PULMONARY PROGRESS NOTES Subjective Patient on assist control ventilation, does assist the ventilator Vitals Vital Signs Date Time Temp Pulse Resp B/P (MAP) Pulse Ox O2 Delivery O2 Flow Rate FiO2 01/16/20 13:51 100.8 89 30 133/76 (95) 98 Ventilator 100.8 Comments intubated AC mode Lungs: Clear Cardiovascular: S1 Abdomen: Soft Extremities: Other (trace edema) Impression Upward Gaze, doesn't follow commands/ not on sedation Labs Laboratory Tests Test 01/14/20 23:00 01/14/20 23:02 01/15/20 05:15 01/15/20 05:23 Heparin Anti-Xa Act, Unfractionated 0.48 IU/mL (0.30-0.70) 0.32 IU/mL (0.30-0.70) Glucose (Fingerstick) 163 mg/dL (70-99) 142 mg/dL (70-99) Test 01/15/20 08:00 01/15/20 08:15 01/15/20 12:52 01/15/20 17:36 O2 Saturation 98 % (92-99) Arterial Blood pH 7.50 (7.35-7.45) Arterial Blood pH (Temp corrected) 7.46 Arterial Blood pCO2 at Patient Temp 29 mmHg (35-46) Arterial Blood pCO2 (Temp correct) 32 mmHg Arterial Blood pO2 at Patient Temp 96 mmHg (65-108) Arterial Blood pO2 (Temp corrected) 106 mmHg Arterial Blood HCO3 22 mmol/L (21-28) Arterial Blood Base Excess 0 mmol/L (-3-3) FiO2 40%+5 White Blood Count 21.5 x10^3/uL (4.0-11.0) Red Blood Count 4.53 x10^6/uL (4.30-5.70) Hemoglobin 13.8 g/dL (13.0-17.5) Hematocrit 41.7 % (39.0-53.0) Mean Corpuscular Volume 92 fL (79-100) Mean Corpuscular Hemoglobin 30 pg (25-35) Mean Corpuscular Hemoglobin Concent 33 g/dL (31-37) Red Cell Distribution Width 13.0 % (11.5-14.5) Platelet Count 257 x10^3/uL (140-400) Neutrophils (%) (Auto) 81 % (31-73) Lymphocytes (%) (Auto) 11 % (24-48) Monocytes (%) (Auto) 8 % (0-9) Eosinophils (%) (Auto) 0 % (0-3) Basophils (%) (Auto) 1 % (0-3) Neutrophils # (Auto) 17.4 x10^3/uL (1.8-7.7) Lymphocytes # (Auto) 2.3 x10^3/uL (1.0-4.8) Monocytes # (Auto) 1.7 x10^3/uL (0.0-1.1) Eosinophils # (Auto) 0.0 x10^3/uL (0.0-0.7) Basophils # (Auto) 0.1 x10^3/uL (0.0-0.2) Sodium Level 141 mmol/L (136-145) Potassium Level 3.5 mmol/L (3.5-5.1) Chloride Level 106 mmol/L (98-107) Carbon Dioxide Level 27 mmol/L (21-32) Anion Gap 8 (6-14) Blood Urea Nitrogen 31 mg/dL (8-26) Creatinine 0.9 mg/dL (0.7-1.3) Estimated GFR (Cockcroft-Gault) 85.2 BUN/Creatinine Ratio 34 (6-20) Glucose Level 141 mg/dL (70-99) Calcium Level 8.1 mg/dL (8.5-10.1) Total Bilirubin 1.1 mg/dL (0.2-1.0) Aspartate Amino Transf (AST/SGOT) 117 U/L (15-37) Alanine Aminotransferase (ALT/SGPT) 128 U/L (16-63) Alkaline Phosphatase 66 U/L (46-116) Total Protein 6.1 g/dL (6.4-8.2) Albumin 2.6 g/dL (3.4-5.0) Albumin/Globulin Ratio 0.7 (1.0-1.7) Glucose (Fingerstick) 129 mg/dL (70-99) 102 mg/dL (70-99) Test 01/15/20 23:50 01/16/20 06:00 01/16/20 08:00 01/16/20 12:06 Glucose (Fingerstick) 158 mg/dL (70-99) 127 mg/dL (70-99) White Blood Count 21.6 x10^3/uL (4.0-11.0) Red Blood Count 5.12 x10^6/uL (4.30-5.70) Hemoglobin 15.6 g/dL (13.0-17.5) Hematocrit 47.3 % (39.0-53.0) Mean Corpuscular Volume 92 fL (79-100) Mean Corpuscular Hemoglobin 31 pg (25-35) Mean Corpuscular Hemoglobin Concent 33 g/dL (31-37) Red Cell Distribution Width 13.5 % (11.5-14.5) Platelet Count 277 x10^3/uL (140-400) Neutrophils (%) (Auto) 86 % (31-73) Lymphocytes (%) (Auto) 7 % (24-48) Monocytes (%) (Auto) 7 % (0-9) Eosinophils (%) (Auto) 0 % (0-3) Basophils (%) (Auto) 0 % (0-3) Neutrophils # (Auto) 18.5 x10^3/uL (1.8-7.7) Lymphocytes # (Auto) 1.5 x10^3/uL (1.0-4.8) Monocytes # (Auto) 1.5 x10^3/uL (0.0-1.1) Eosinophils # (Auto) 0.0 x10^3/uL (0.0-0.7) Basophils # (Auto) 0.0 x10^3/uL (0.0-0.2) Heparin Anti-Xa Act, Unfractionated 0.21 IU/mL (0.30-0.70) Sodium Level 154 mmol/L (136-145) Potassium Level 2.8 mmol/L (3.5-5.1) Chloride Level 115 mmol/L (98-107) Carbon Dioxide Level 27 mmol/L (21-32) Anion Gap 12 (6-14) Blood Urea Nitrogen 22 mg/dL (8-26) Creatinine 0.8 mg/dL (0.7-1.3) Estimated GFR (Cockcroft-Gault) 97.6 Glucose Level 190 mg/dL (70-99) Calcium Level 9.0 mg/dL (8.5-10.1) O2 Saturation 97 % (92-99) Arterial Blood pH 7.52 (7.35-7.45) Arterial Blood pH (Temp corrected) 7.49 Arterial Blood pCO2 at Patient Temp 33 mmHg (35-46) Arterial Blood pCO2 (Temp correct) 36 mmHg Arterial Blood pO2 at Patient Temp 89 mmHg (65-108) Arterial Blood pO2 (Temp corrected) 101 mmHg Arterial Blood HCO3 26 mmol/L (21-28) Arterial Blood Base Excess 4 mmol/L (-3-3) FiO2 40 Test 01/16/20 14:00 Heparin Anti-Xa Act, Unfractionated 0.29 IU/mL (0.30-0.70) Laboratory Tests Test 01/15/20 17:36 01/15/20 23:50 01/16/20 06:00 01/16/20 08:00 Glucose (Fingerstick) 102 mg/dL (70-99) 158 mg/dL (70-99) White Blood Count 21.6 x10^3/uL (4.0-11.0) Red Blood Count 5.12 x10^6/uL (4.30-5.70) Hemoglobin 15.6 g/dL (13.0-17.5) Hematocrit 47.3 % (39.0-53.0) Mean Corpuscular Volume 92 fL (79-100) Mean Corpuscular Hemoglobin 31 pg (25-35) Mean Corpuscular Hemoglobin Concent 33 g/dL (31-37) Red Cell Distribution Width 13.5 % (11.5-14.5) Platelet Count 277 x10^3/uL (140-400) Neutrophils (%) (Auto) 86 % (31-73) Lymphocytes (%) (Auto) 7 % (24-48) Monocytes (%) (Auto) 7 % (0-9) Eosinophils (%) (Auto) 0 % (0-3) Basophils (%) (Auto) 0 % (0-3) Neutrophils # (Auto) 18.5 x10^3/uL (1.8-7.7) Lymphocytes # (Auto) 1.5 x10^3/uL (1.0-4.8) Monocytes # (Auto) 1.5 x10^3/uL (0.0-1.1) Eosinophils # (Auto) 0.0 x10^3/uL (0.0-0.7) Basophils # (Auto) 0.0 x10^3/uL (0.0-0.2) Heparin Anti-Xa Act, Unfractionated 0.21 IU/mL (0.30-0.70) Sodium Level 154 mmol/L (136-145) Potassium Level 2.8 mmol/L (3.5-5.1) Chloride Level 115 mmol/L (98-107) Carbon Dioxide Level 27 mmol/L (21-32) Anion Gap 12 (6-14) Blood Urea Nitrogen 22 mg/dL (8-26) Creatinine 0.8 mg/dL (0.7-1.3) Estimated GFR (Cockcroft-Gault) 97.6 Glucose Level 190 mg/dL (70-99) Calcium Level 9.0 mg/dL (8.5-10.1) O2 Saturation 97 % (92-99) Arterial Blood pH 7.52 (7.35-7.45) Arterial Blood pH (Temp corrected) 7.49 Arterial Blood pCO2 at Patient Temp 33 mmHg (35-46) Arterial Blood pCO2 (Temp correct) 36 mmHg Arterial Blood pO2 at Patient Temp 89 mmHg (65-108) Arterial Blood pO2 (Temp corrected) 101 mmHg Arterial Blood HCO3 26 mmol/L (21-28) Arterial Blood Base Excess 4 mmol/L (-3-3) FiO2 40 Test 01/16/20 12:06 01/16/20 14:00 Glucose (Fingerstick) 127 mg/dL (70-99) Heparin Anti-Xa Act, Unfractionated 0.29 IU/mL (0.30-0.70) Medications Active Scripts Medications Dose Route/Sig Max Daily Dose Days Date Category Vitamin D3 Complete Caplet (Mv-Mn/Iron/Fa/Herbal Cmplx#190) 1 Each Tablet 1 Each PO BID 01/13/20 Reported Metformin Hcl 1,000 Mg Tablet 1,000 Mg PO BIDWMEALS 01/13/20 Reported Adult Low Dose Aspirin Ec (Aspirin) 81 Mg Tablet.dr 81 Mg PO DAILY 08/21/13 Reported Metoprolol Tartrate 25 Mg Tablet 25 Mg PO BID 08/21/13 Reported Lisinopril 20 Mg Tablet 20 Mg PO DAILY 08/21/13 Reported Plavix (Clopidogrel Bisulfate) 75 Mg Tablet 75 Mg PO DAILY 08/21/13 Reported Atorvastatin Calcium 80 Mg Tablet 80 Mg PO DAILY 08/21/13 Reported Fish Oil 1,200 Mg Fish Oil (Fish Oil/Dha/Epa) 1 Each Capsule 2,400 Mg PO DAILY 08/21/13 Reported Comments CXR: 01/13/20 IMPRESSION: Stable endotracheal intubation with no pneumothorax or other acute complications. Impression . IMPRESSION: 1. Acute hypoxic and hypercapnic respiratory failure secondary to cardiac arrest. 2. Cardiac arrest with V-fib and V-tach. Status post CPR and ACLS protocol for approximately 50 minutes. 3. History of underlying coronary artery disease and suspected non-ST myocardial infarction. 4. Abnormal chest x-ray with faint basal atelectasis or infiltrate. 5. Anoxic encephalopathy due to prolonged CPR. 6. Coffee-ground aspirate from NG tube 7. Likely underlying chronic obstructive pulmonary disease. 8. Abnormal ct head with suspected small ischemic infarct 9. Shock Liver 10. Hypertension Plan . Spoke with RN, family contemplating withdrawing care Will continue current assist control ventilation I concur prognosis is very poor We will continue current support, very poor prognosis Follow cardiology input Monitor labs Follow neurology input Total cumulative critical care time more than 30 minutes, reviewing data, chest x-ray, labs, and formulating a plan ZELDA MANNING MD January 16, 2020 14:57
--- NOTE | 2020-01-16 15:39 | PDOC ---
PROGRESS NOTES Chief Complaint Chief Complaint A/P: Acute hypoxic and hypercapnic respiratory failure secondary to cardiac arrest. Ventricular fibrillation Cardiac arrest - s/p CPR and ACLS protocol for approximately 50 minutes. Coronary artery disease and suspected non-ST myocardial infarction. Coffee-ground OG aspirate. Could be related to OG trauma. Likely chronic obstructive pulmonary disease. Abnormal ct head with suspected small ischemic infarct -there is likely an infarct, also concern for significant anoxic brain injury on examination Shock Liver Fever-likely secondary to aspiration, will monitor FEN PPX FULL CODE Dispo - ICU, overall poor prognosis History of Present Illness History of Present Illness Mr Rivas is a 64 y M w/ PMHx CAD (stent 14 yr ago), DM2, ex-smoker (30 pack year history) who presents via EMS on 01/12/2020 after being found down by his family. EMS found him in V-tach, initiated CPR and had ACLS protocol followed for about 20 minutes. In ED had approximately 20-25 minutes of CPR intermittently with shock and ACLS medications with rhythm throughout V-tach and V-fib. ROSC eventually achieved and he was initiated on IV amiodarone and 2 ampules of bicarbonate. He was requiring low-dose Levophed. Cardiology advised no immediate intervention indicated. Initial ABG pH of 7.03, pCO2 of 50 and a pO2 of 258 started on 60% and [address] head with concern for left parietal ischemia. Initial K 2.7. BUN 18, creatinine 1.4. AST and ALT elevated. WBC 7.1, hemoglobin 15.1, platelets 278,000. 01/13/2020 Overnight had some shaking episodes. This morning temperature 101.7 F, WBC 21.3, K3.7, CR 1.3, MG 1.5, ABG 7.45/30 on 60% FiO2. is currently bedside to witness physical examination with eyes deviated upward into the left no meaningful response to pain does have gag to suction. Does not follow any commands has been off sedation for 6 hours. I had a long conversation with who has conference called the sons to discuss goals of further care and they have made it very clear that his wish was not to remain in a persistent vegetative state if there is no meaningful prognosis for neurologic recovery. They are aware of the overall poor prognosis given his prolonged CPR course. 01/14/2020 Quite grim prognosis, discussed with at bedside, reassured her but also gave her the perspective of a meaningful recovery being unlikey in light of his current state. also reassured her that she had the conversation with the patient regarding wishes not to have intervention that would just prolong the inevitable. I asked her about the patients wishes and as stated on my colleagues note yesterday he had voiced not wanting to have supportive measures if he would be in a persistent vegetative state which seems to be the direction he is going. Will continue to follow. 01/15/2020 Patient with no neurological response as expected, reviewed results from current work-up consistent with anoxic brain injury. Encephalopathy seems to be getting worse. Discussed with at bedside reassurance has been provided 01/16/2020 Encephalopathy has ensued, now more accepting and most likely will withdraw care later today or tomorrow morning Vitals Vitals Vital Signs Date Time Temp Pulse Resp B/P (MAP) Pulse Ox O2 Delivery O2 Flow Rate FiO2 01/16/20 14:58 99.7 99 26 135/77 (96) 96 Ventilator 99.7 Physical Exam Physical Exam On ventilator No pupillary response No oculocephalic response CN: no focal findings. Muscle tone: normal. Muscle strength: withdraws slightly to pain DTR: 1+ Plantar reflex: silent General: No acute distress, Other (Intubated and on a ventilator) Heart: Regular rate Lungs: Clear Abdomen: Normal bowel sounds Labs LABS Laboratory Tests Test 01/15/20 17:36 01/15/20 23:50 01/16/20 06:00 01/16/20 08:00 Glucose (Fingerstick) 102 mg/dL (70-99) 158 mg/dL (70-99) White Blood Count 21.6 x10^3/uL (4.0-11.0) Red Blood Count 5.12 x10^6/uL (4.30-5.70) Hemoglobin 15.6 g/dL (13.0-17.5) Hematocrit 47.3 % (39.0-53.0) Mean Corpuscular Volume 92 fL (79-100) Mean Corpuscular Hemoglobin 31 pg (25-35) Mean Corpuscular Hemoglobin Concent 33 g/dL (31-37) Red Cell Distribution Width 13.5 % (11.5-14.5) Platelet Count 277 x10^3/uL (140-400) Neutrophils (%) (Auto) 86 % (31-73) Lymphocytes (%) (Auto) 7 % (24-48) Monocytes (%) (Auto) 7 % (0-9) Eosinophils (%) (Auto) 0 % (0-3) Basophils (%) (Auto) 0 % (0-3) Neutrophils # (Auto) 18.5 x10^3/uL (1.8-7.7) Lymphocytes # (Auto) 1.5 x10^3/uL (1.0-4.8) Monocytes # (Auto) 1.5 x10^3/uL (0.0-1.1) Eosinophils # (Auto) 0.0 x10^3/uL (0.0-0.7) Basophils # (Auto) 0.0 x10^3/uL (0.0-0.2) Heparin Anti-Xa Act, Unfractionated 0.21 IU/mL (0.30-0.70) Sodium Level 154 mmol/L (136-145) Potassium Level 2.8 mmol/L (3.5-5.1) Chloride Level 115 mmol/L (98-107) Carbon Dioxide Level 27 mmol/L (21-32) Anion Gap 12 (6-14) Blood Urea Nitrogen 22 mg/dL (8-26) Creatinine 0.8 mg/dL (0.7-1.3) Estimated GFR (Cockcroft-Gault) 97.6 Glucose Level 190 mg/dL (70-99) Calcium Level 9.0 mg/dL (8.5-10.1) O2 Saturation 97 % (92-99) Arterial Blood pH 7.52 (7.35-7.45) Arterial Blood pH (Temp corrected) 7.49 Arterial Blood pCO2 at Patient Temp 33 mmHg (35-46) Arterial Blood pCO2 (Temp correct) 36 mmHg Arterial Blood pO2 at Patient Temp 89 mmHg (65-108) Arterial Blood pO2 (Temp corrected) 101 mmHg Arterial Blood HCO3 26 mmol/L (21-28) Arterial Blood Base Excess 4 mmol/L (-3-3) FiO2 40 Test 01/16/20 12:06 01/16/20 14:00 Glucose (Fingerstick) 127 mg/dL (70-99) Heparin Anti-Xa Act, Unfractionated 0.29 IU/mL (0.30-0.70) Assessment and Plan Assessmemt and Plan Problems Medical Problems: (1) Cardiac arrest Status: Acute Comment Review of Relevant I have reviewed the following items france (where applicable) has been applied. Labs Laboratory Tests Test 01/14/20 23:00 01/14/20 23:02 01/15/20 05:15 01/15/20 05:23 Heparin Anti-Xa Act, Unfractionated 0.48 IU/mL (0.30-0.70) 0.32 IU/mL (0.30-0.70) Glucose (Fingerstick) 163 mg/dL (70-99) 142 mg/dL (70-99) Test 01/15/20 08:00 01/15/20 08:15 01/15/20 12:52 01/15/20 17:36 O2 Saturation 98 % (92-99) Arterial Blood pH 7.50 (7.35-7.45) Arterial Blood pH (Temp corrected) 7.46 Arterial Blood pCO2 at Patient Temp 29 mmHg (35-46) Arterial Blood pCO2 (Temp correct) 32 mmHg Arterial Blood pO2 at Patient Temp 96 mmHg (65-108) Arterial Blood pO2 (Temp corrected) 106 mmHg Arterial Blood HCO3 22 mmol/L (21-28) Arterial Blood Base Excess 0 mmol/L (-3-3) FiO2 40%+5 White Blood Count 21.5 x10^3/uL (4.0-11.0) Red Blood Count 4.53 x10^6/uL (4.30-5.70) Hemoglobin 13.8 g/dL (13.0-17.5) Hematocrit 41.7 % (39.0-53.0) Mean Corpuscular Volume 92 fL (79-100) Mean Corpuscular Hemoglobin 30 pg (25-35) Mean Corpuscular Hemoglobin Concent 33 g/dL (31-37) Red Cell Distribution Width 13.0 % (11.5-14.5) Platelet Count 257 x10^3/uL (140-400) Neutrophils (%) (Auto) 81 % (31-73) Lymphocytes (%) (Auto) 11 % (24-48) Monocytes (%) (Auto) 8 % (0-9) Eosinophils (%) (Auto) 0 % (0-3) Basophils (%) (Auto) 1 % (0-3) Neutrophils # (Auto) 17.4 x10^3/uL (1.8-7.7) Lymphocytes # (Auto) 2.3 x10^3/uL (1.0-4.8) Monocytes # (Auto) 1.7 x10^3/uL (0.0-1.1) Eosinophils # (Auto) 0.0 x10^3/uL (0.0-0.7) Basophils # (Auto) 0.1 x10^3/uL (0.0-0.2) Sodium Level 141 mmol/L (136-145) Potassium Level 3.5 mmol/L (3.5-5.1) Chloride Level 106 mmol/L (98-107) Carbon Dioxide Level 27 mmol/L (21-32) Anion Gap 8 (6-14) Blood Urea Nitrogen 31 mg/dL (8-26) Creatinine 0.9 mg/dL (0.7-1.3) Estimated GFR (Cockcroft-Gault) 85.2 BUN/Creatinine Ratio 34 (6-20) Glucose Level 141 mg/dL (70-99) Calcium Level 8.1 mg/dL (8.5-10.1) Total Bilirubin 1.1 mg/dL (0.2-1.0) Aspartate Amino Transf (AST/SGOT) 117 U/L (15-37) Alanine Aminotransferase (ALT/SGPT) 128 U/L (16-63) Alkaline Phosphatase 66 U/L (46-116) Total Protein 6.1 g/dL (6.4-8.2) Albumin 2.6 g/dL (3.4-5.0) Albumin/Globulin Ratio 0.7 (1.0-1.7) Glucose (Fingerstick) 129 mg/dL (70-99) 102 mg/dL (70-99) Test 01/15/20 23:50 01/16/20 06:00 01/16/20 08:00 01/16/20 12:06 Glucose (Fingerstick) 158 mg/dL (70-99) 127 mg/dL (70-99) White Blood Count 21.6 x10^3/uL (4.0-11.0) Red Blood Count 5.12 x10^6/uL (4.30-5.70) Hemoglobin 15.6 g/dL (13.0-17.5) Hematocrit 47.3 % (39.0-53.0) Mean Corpuscular Volume 92 fL (79-100) Mean Corpuscular Hemoglobin 31 pg (25-35) Mean Corpuscular Hemoglobin Concent 33 g/dL (31-37) Red Cell Distribution Width 13.5 % (11.5-14.5) Platelet Count 277 x10^3/uL (140-400) Neutrophils (%) (Auto) 86 % (31-73) Lymphocytes (%) (Auto) 7 % (24-48) Monocytes (%) (Auto) 7 % (0-9) Eosinophils (%) (Auto) 0 % (0-3) Basophils (%) (Auto) 0 % (0-3) Neutrophils # (Auto) 18.5 x10^3/uL (1.8-7.7) Lymphocytes # (Auto) 1.5 x10^3/uL (1.0-4.8) Monocytes # (Auto) 1.5 x10^3/uL (0.0-1.1) Eosinophils # (Auto) 0.0 x10^3/uL (0.0-0.7) Basophils # (Auto) 0.0 x10^3/uL (0.0-0.2) Heparin Anti-Xa Act, Unfractionated 0.21 IU/mL (0.30-0.70) Sodium Level 154 mmol/L (136-145) Potassium Level 2.8 mmol/L (3.5-5.1) Chloride Level 115 mmol/L (98-107) Carbon Dioxide Level 27 mmol/L (21-32) Anion Gap 12 (6-14) Blood Urea Nitrogen 22 mg/dL (8-26) Creatinine 0.8 mg/dL (0.7-1.3) Estimated GFR (Cockcroft-Gault) 97.6 Glucose Level 190 mg/dL (70-99) Calcium Level 9.0 mg/dL (8.5-10.1) O2 Saturation 97 % (92-99) Arterial Blood pH 7.52 (7.35-7.45) Arterial Blood pH (Temp corrected) 7.49 Arterial Blood pCO2 at Patient Temp 33 mmHg (35-46) Arterial Blood pCO2 (Temp correct) 36 mmHg Arterial Blood pO2 at Patient Temp 89 mmHg (65-108) Arterial Blood pO2 (Temp corrected) 101 mmHg Arterial Blood HCO3 26 mmol/L (21-28) Arterial Blood Base Excess 4 mmol/L (-3-3) FiO2 40 Test 01/16/20 14:00 Heparin Anti-Xa Act, Unfractionated 0.29 IU/mL (0.30-0.70) Laboratory Tests Test 01/15/20 17:36 01/15/20 23:50 01/16/20 06:00 01/16/20 08:00 Glucose (Fingerstick) 102 mg/dL (70-99) 158 mg/dL (70-99) White Blood Count 21.6 x10^3/uL (4.0-11.0) Red Blood Count 5.12 x10^6/uL (4.30-5.70) Hemoglobin 15.6 g/dL (13.0-17.5) Hematocrit 47.3 % (39.0-53.0) Mean Corpuscular Volume 92 fL (79-100) Mean Corpuscular Hemoglobin 31 pg (25-35) Mean Corpuscular Hemoglobin Concent 33 g/dL (31-37) Red Cell Distribution Width 13.5 % (11.5-14.5) Platelet Count 277 x10^3/uL (140-400) Neutrophils (%) (Auto) 86 % (31-73) Lymphocytes (%) (Auto) 7 % (24-48) Monocytes (%) (Auto) 7 % (0-9) Eosinophils (%) (Auto) 0 % (0-3) Basophils (%) (Auto) 0 % (0-3) Neutrophils # (Auto) 18.5 x10^3/uL (1.8-7.7) Lymphocytes # (Auto) 1.5 x10^3/uL (1.0-4.8) Monocytes # (Auto) 1.5 x10^3/uL (0.0-1.1) Eosinophils # (Auto) 0.0 x10^3/uL (0.0-0.7) Basophils # (Auto) 0.0 x10^3/uL (0.0-0.2) Heparin Anti-Xa Act, Unfractionated 0.21 IU/mL (0.30-0.70) Sodium Level 154 mmol/L (136-145) Potassium Level 2.8 mmol/L (3.5-5.1) Chloride Level 115 mmol/L (98-107) Carbon Dioxide Level 27 mmol/L (21-32) Anion Gap 12 (6-14) Blood Urea Nitrogen 22 mg/dL (8-26) Creatinine 0.8 mg/dL (0.7-1.3) Estimated GFR (Cockcroft-Gault) 97.6 Glucose Level 190 mg/dL (70-99) Calcium Level 9.0 mg/dL (8.5-10.1) O2 Saturation 97 % (92-99) Arterial Blood pH 7.52 (7.35-7.45) Arterial Blood pH (Temp corrected) 7.49 Arterial Blood pCO2 at Patient Temp 33 mmHg (35-46) Arterial Blood pCO2 (Temp correct) 36 mmHg Arterial Blood pO2 at Patient Temp 89 mmHg (65-108) Arterial Blood pO2 (Temp corrected) 101 mmHg Arterial Blood HCO3 26 mmol/L (21-28) Arterial Blood Base Excess 4 mmol/L (-3-3) FiO2 40 Test 01/16/20 12:06 01/16/20 14:00 Glucose (Fingerstick) 127 mg/dL (70-99) Heparin Anti-Xa Act, Unfractionated 0.29 IU/mL (0.30-0.70) Medications Current Medications Heparin Sodium/ Sodium Chloride 0 ml @ As Directed STK-MED ONCE .ROUTE ; Start 01/12/20 at 12:25; Stop 01/12/20 at 12:25; Status DC Fentanyl Citrate (Fentanyl 2ml Vial) 100 mcg STK-MED ONCE .ROUTE ; Start 01/12/20 at 12:26; Stop 01/12/20 at 12:26; Status DC Midazolam HCl (Versed) 2 mg STK-MED ONCE .ROUTE ; Start 01/12/20 at 12:26; Stop 01/12/20 at 12:26; Status DC Iodixanol (Visipaque 320) 100 ml STK-MED ONCE .ROUTE ; Start 01/12/20 at 12:26; Stop 01/12/20 at 12:26; Status DC Lidocaine HCl (Lidocaine 1% 20ml Vial) 20 ml STK-MED ONCE .ROUTE ; Start 01/12/20 at 12:26; Stop 01/12/20 at 12:27; Status DC Amiodarone HCl 450 mg/Dextrose 259 ml @ 0 mls/hr CONT PRN IV SEE I/O RECORD; Start 01/12/20 at 12:45; Status UNV Amiodarone HCl 450 mg/Dextrose 259 ml @ 33 mls/hr CONT PRN IV SEE I/O RECORD Last administered on 01/13/20at 03:07; Start 01/12/20 at 12:45; Stop 01/13/20 at 03:07; Status DC Fentanyl Citrate (Fentanyl 2ml Vial) 100 mcg 1X ONCE IV Last administered on at 12:54; Start 01/12/20 at 13:00; Stop 01/12/20 at 13:01; Status DC Midazolam HCl (Versed) 2 mg 1X ONCE IV Last administered on 01/12/20at 12:54; Start 01/12/20 at 13:00; Stop 01/12/20 at 13:01; Status DC Magnesium Sulfate/ Dextrose 100 ml @ 100 mls/hr 1X ONCE IV ; Start 01/12/20 at 13:00; Stop 01/12/20 at 13:59; Status DC Buspirone HCl (Buspar) 30 mg Q8H NG ; Start 01/12/20 at 13:00; Stop 01/12/20 at 17:03; Status DC Acetaminophen (Tylenol) 650 mg Q4H NG ; Start 01/12/20 at 13:00; Stop 01/12/20 at 21:13; Status DC Acetaminophen (Tylenol Supp) 650 mg PRN Q4HRS PRN MS IF NO NG DOSE GIVEN Last administered on 01/15/20at 13:13; Start 01/12/20 at 12:45 Artificial Tears (Artificial Tears) 1 drop Q6HRS OU ; Start 01/12/20 at 18:00; Stop 01/12/20 at 21:13; Status DC Artificial Tears (Artificial Tears) 1 drop PRN Q15MIN PRN OU DRY EYE Last administered on 01/14/20at 13:16; Start 01/12/20 at 12:45 Heparin Sodium (Porcine) (Heparin Sodium) 5,000 unit BID SQ Last administered on 01/12/20at 21:19; Start 01/12/20 at 21:00; Stop 01/13/20 at 15:08; Status DC Pantoprazole Sodium (PROTONIX VIAL for IV PUSH) 40 mg DAILY IVP ; Start 01/13/20 at 09:00; Stop 01/12/20 at 17:03; Status DC Fentanyl Citrate 30 ml @ 0 mls/hr CONT PRN IV PER PROTOCOL.; Start 01/12/20 at 12:45 Propofol 100 ml @ 0 mls/hr CONT PRN IV PER PROTOCOL.; Start 01/12/20 at 12:45 Midazolam HCl 100 ml @ 0 mls/hr CONT PRN IV PER PROTOCOL. Last administered on 01/12/20at 13:32; Start 01/12/20 at 12:45 Vecuronium [place] (Norcuron Bolus) 10 mg PRN Q1HR PRN IV SHIVERING; Start 01/12/20 at 12:45 Fentanyl Citrate 30 ml @ 0 mls/hr CONT PRN IV SEE PROTOCOL; Start 01/12/20 at 13:00; Status UNV Fentanyl Citrate (Fentanyl 2ml Vial) 25 mcg PRN Q1HR PRN IV SEE COMMENTS; Start 01/12/20 at 13:00 Fentanyl Citrate (Fentanyl 2ml Vial) 50 mcg PRN Q1HR PRN IV SEE COMMENTS Last administered on 01/14/20at 21:00; Start 01/12/20 at 13:00 Chlorhexidine Gluconate (Peridex) 15 ml BID MM ; Start 01/12/20 at 21:00; Stop 01/12/20 at 17:03; Status DC Midazolam HCl 100 ml @ 0 mls/hr CONT PRN IV SEE PROTOCOL; Start 01/12/20 at 13:00; Status UNV Potassium Chloride/Water 100 ml @ 50 mls/hr 1X ONCE IV Last administered on 01/12/20at 14:00; Start 01/12/20 at 14:00; Stop 01/12/20 at 15:59; Status DC Dopamine HCl/ Dextrose 250 ml @ 17.944 mls/ hr CONT PRN PRN IV SEE PROTOCOL; Start 01/12/20 at 16:49 Famotidine (Pepcid Vial) 20 mg BID IVP Last administered on 01/16/20at 08:47; Start 01/12/20 at 21:00 Potassium Chloride/Water 100 ml @ 100 mls/hr Q1H IV Last administered on 01/12/20at 20:26; Start 01/12/20 at 17:30; Stop 01/12/20 at 19:29; Status DC Sodium Chloride 1,000 ml @ 100 mls/hr Q10H IV Last administered on 01/16/20at 03:41; Start 01/12/20 at 18:30 Acetaminophen (Tylenol) 650 mg PRN Q6HRS PRN PEG MILD PAIN / TEMP > 100.3'F Last administered on 01/13/20at 04:16; Start 01/13/20 at 04:15 Magnesium Sulfate/ Dextrose 100 ml @ 100 mls/hr 1X ONCE IV Last administered on 01/13/20at 07:59; Start 01/13/20 at 08:00; Stop 01/13/20 at 08:59; Status DC Nicardipine HCl 50 mg/Sodium Chloride 250 ml @ 25 mls/hr CONT PRN IV SEE I/O R ECORD Last administered on 01/16/20at 14:57; Start 01/13/20 at 09:00 Amiodarone HCl 450 mg/Dextrose 259 ml @ 17 mls/hr CONT PRN IV SEE I/O RECORD Last administered on 01/16/20at 07:13; Start 01/13/20 at 11:30 Insulin Human Lispro (HumaLOG) 0-7 UNITS Q6HRS SQ ; Start 01/13/20 at 13:15 Dextrose (Dextrose 50%-Water Syringe) 12.5 gm PRN Q15MIN PRN IV SEE COMMENTS; Start 01/13/20 at 13:15 Heparin Sodium/ Dextrose 250 ml @ 0 mls/hr CONT PRN IV PER PROTOCOL Last administered on 01/16/20at 03:41; Start 01/13/20 at 15:30 Heparin Sodium (Porcine) (Heparin Sodium) 2,300 unit PRN Q6HRS PRN IV FOR UFH LEVEL LESS THAN 0.2 Last administered on 01/14/20at 07:56; Start 01/13/20 at 15:30 Amiodarone HCl 450 mg/Dextrose 259 ml @ 0 mls/hr DAILY IV ; Start 01/13/20 at 15:45; Status UNV Aspirin (Ecotrin) 81 mg DAILYWBKFT PO ; Start 01/14/20 at 15:00; Stop 01/15/20 at 07:44; Status DC Aspirin (Aspirin Chewable) 81 mg DAILYWBKFT PO ; Start 01/15/20 at 08:00; Stop 01/15/20 at 11:55; Status DC Aspirin (Aspirin Rectal Supp) 300 mg DAILY08 MS Last administered on 01/16/20at 08:00; Start 01/16/20 at 08:00 Amino Acids/ Glycerin/ Electrolytes 1,000 ml @ 80 mls/hr [id number] IV Last administered on 01/16/20at 03:40; Start 01/15/20 at 12:30 Labetalol HCl (Normodyne Iv Push) 10 mg PRN Q2HR PRN IVP HYPERTENSION Last administered on 01/15/20at 14:16; Start 01/15/20 at 14:00 Scopolamine (Transderm-Scop) 1 patch Q3DAYS TD Last administered on 01/15/20at 18:20; Start 01/15/20 at 18:00 Potassium Chloride/Water 100 ml @ 100 mls/hr Q1H IV ; Start 01/16/20 at 08:00; Stop 01/16/20 at 09:59; Status Cancel Potassium Chloride 40 meq/ Dextrose 1,020 ml @ 75 mls/hr [id number] IV Last administered on 01/16/20at 08:42; Start 01/16/20 at 08:00; Stop 01/17/20 at 07:59 Amiodarone HCl (Cordarone) 300 mg STK-MED ONCE .ROUTE ; Start 08/14/20 at 08:00; Stop 01/16/20 at 08:52; Status DC Sodium Bicarbonate (Sodium Bicarb Adult 8.4% Syr) 100 meq STK-MED ONCE .ROUTE ; Start 08/14/20 at 08:00; Stop 01/16/20 at 08:52; Status DC Epinephrine HCl (EPINEPHrine SYRINGE) 4 mg STK-MED ONCE .ROUTE ; Start 08/14/20 at 08:00; Stop 01/16/20 at 08:52; Status DC Dopamine HCl/ Dextrose (DOPamine 400MG/ 250ML PREMIX) 400 mg STK-MED ONCE IV ; Start 08/14/20 at 08:00; Stop 01/16/20 at 08:52; Status DC Active Scripts Active Reported Vitamin D3 Complete Caplet (Mv-Mn/Iron/Fa/Herbal Cmplx#190) 1 Each Tablet 1 Each PO BID Metformin Hcl 1,000 Mg Tablet 1,000 Mg PO BIDWMEALS Adult Low Dose Aspirin Ec (Aspirin) 81 Mg Tablet.dr 81 Mg PO DAILY Metoprolol Tartrate 25 Mg Tablet 25 Mg PO BID Lisinopril 20 Mg Tablet 20 Mg PO DAILY Plavix (Clopidogrel Bisulfate) 75 Mg Tablet 75 Mg PO DAILY Atorvastatin Calcium 80 Mg Tablet 80 Mg PO DAILY Fish Oil 1,200 Mg Fish Oil (Fish Oil/Dha/Epa) 1 Each Capsule 2,400 Mg PO DAILY Vitals/I & O Vital Sign - Last 24 Hours 01/15/20 01/15/20 01/15/20 01/15/20 16:05 16:19 16:45 16:53 Temp 103.6 103.3 103.6 103.3 Pulse 71 78 Resp 32 32 B/P (MAP) 152/67 (95) 193/80 (117) 160/71 (100) Pulse Ox 99 99 O2 Delivery Ventilator Mechanical Ventilator Ventilator 01/15/20 01/15/20 01/15/20 01/15/20 17:14 17:53 17:58 19:00 Temp 102.2 100.6 102.2 100.6 Pulse 87 88 Resp 35 33 B/P (MAP) 138/65 (89) 142/64 (90) 144/69 (94) Pulse Ox 99 98 98 O2 Delivery Ventilator Ventilator Ventilator 01/15/20 01/15/20 01/15/20 01/15/20 19:36 19:54 20:00 21:00 Temp 98.9 98.9 Pulse 80 87 Resp 33 28 B/P (MAP) 152/77 (102) 136/78 (97) Pulse Ox 99 98 99 O2 Delivery Ventilator Mechanical Ventilator Ventilator Ventilator 01/15/20 01/15/20 01/15/20 01/15/20 21:15 21:30 21:59 23:00 Pulse 84 80 85 81 Resp 28 33 B/P (MAP) 140/81 (100) 146/80 (102) 148/80 (102) 148/87 (107) Pulse Ox 98 99 O2 Delivery Ventilator Ventilator Ventilator Ventilator 01/15/20 01/15/20 01/16/20 01/16/20 23:55 23:56 00:00 01:00 Temp 95.7 95.0 95.7 95.0 Pulse 78 72 Resp 27 29 B/P (MAP) 150/81 (104) 150/79 (102) Pulse Ox 100 99 98 O2 Delivery Ventilator Ventilator Mechanical Ventilator Ventilator 01/16/20 01/16/20 01/16/20 01/16/20 02:00 02:10 03:00 04:00 Temp 95.7 96.6 95.7 96.6 Pulse 72 70 Resp 20 24 B/P (MAP) 148/70 (96) 153/81 (105) Pulse Ox 99 99 99 O2 Delivery Ventilator Ventilator Ventilator Mechanical Ventilator 01/16/20 01/16/20 01/16/20 01/16/20 04:00 04:15 05:00 06:05 Temp 97.0 98.2 99.9 97.0 98.2 99.9 Pulse 72 76 80 Resp 16 16 15 B/P (MAP) 137/74 (95) 151/75 (100) 166/80 (108) Pulse Ox 94 99 99 98 O2 Delivery Ventilator Ventilator Ventilator Ventilator 01/16/20 01/16/20 01/16/20 01/16/20 07:02 07:35 08:04 08:09 Temp 100.9 102.0 100.9 102.0 Pulse 77 82 Resp 28 31 B/P (MAP) 154/75 (101) 164/73 (103) Pulse Ox 99 98 99 O2 Delivery Ventilator Mechanical Ventilator Ventilator Ventilator 01/16/20 01/16/20 01/16/20 01/16/20 08:56 09:53 11:13 11:51 Temp 102.6 102.6 101.8 102.6 102.6 101.8 Pulse 92 91 83 Resp 20 22 22 B/P (MAP) 158/70 (99) 140/73 (95) 152/78 (102) Pulse Ox 98 98 98 99 O2 Delivery Ventilator Ventilator Ventilator Ventilator 01/16/20 01/16/20 01/16/20 01/16/20 12:00 12:09 13:19 13:33 Temp 101.5 101.5 101.5 101.5 Pulse 86 85 Resp 30 30 B/P (MAP) 156/81 (106) 155/80 (105) Pulse Ox 97 98 O2 Delivery Mechanical Ventilator Ventilator Ventilator Mechanical Ventilator 01/16/20 01/16/20 13:51 14:58 Temp 100.8 99.7 100.8 99.7 Pulse 89 99 Resp 30 26 B/P (MAP) 133/76 (95) 135/77 (96) Pulse Ox 98 96 O2 Delivery Ventilator Ventilator Intake and Output 01/15/20 01/15/20 01/16/20 15:00 23:00 07:00 Intake Total 1712 ml 2807.2 ml Output Total 510 ml 4065 ml 2425 ml Balance -510 ml -2353 ml 382.2 ml BERRY VENTURA MD January 16, 2020 15:39
[2020-01-16] MEDS ORDERED: MORPHINE SULFATE 4 MG/ML VIAL. IV PRN (17:45)
--- NOTE | 2020-01-16 18:50 | NUR ---
Patient's and 2 sons came up to say their goodbyes to him. While sitting at patient's bedside, family decided they wanted to withdraw care. Patient was taken off vent and made comfortable at 1800. Patient at 1817. Dr. Zamora, Nursing putty and caulking supervisor, and [facility] was notified. Patient is a candidate for tissue. Family were tearful when they left.
--- NOTE | 2020-01-17 17:42 | PDOC3 ---
Discharge Summary Visit Information Date of Admission: January 12, 2020 Date of Discharge: January 16, 2020 Admitting Diagnosis Comment: cardiac arrest Final Diagnosis Acute hypoxic and hypercapnic respiratory failure secondary to cardiac arrest. Ventricular fibrillation Cardiac arrest - s/p CPR and ACLS protocol for approximately 50 minutes. Coronary artery disease and suspected non-ST myocardial infarction. Coffee-ground OG aspirate. Could be related to OG trauma. Likely chronic obstructive pulmonary disease. Abnormal ct head with suspected small ischemic infarct -there is likely an infarct, also concern for significant anoxic brain injury on examination Shock Liver Fever-likely secondary to aspiration Brief Hospital Course Allergies Allergies Coded Allergies Type Severity Reaction Last Updated Verified Penicillins Allergy Intermediate Hives 01/12/20 Yes Vital Signs Vital Signs Date Time Temp Pulse Resp B/P (MAP) Pulse Ox O2 Delivery O2 Flow Rate FiO2 01/16/20 16:26 Mechanical Ventilator 01/16/20 15:54 98.8 91 18 104/68 (80) 91 98.8 Lab Results Laboratory Tests Test 01/15/20 23:50 01/16/20 06:00 01/16/20 08:00 01/16/20 12:06 Glucose (Fingerstick) 158 mg/dL (70-99) 127 mg/dL (70-99) White Blood Count 21.6 x10^3/uL (4.0-11.0) Red Blood Count 5.12 x10^6/uL (4.30-5.70) Hemoglobin 15.6 g/dL (13.0-17.5) Hematocrit 47.3 % (39.0-53.0) Mean Corpuscular Volume 92 fL (79-100) Mean Corpuscular Hemoglobin 31 pg (25-35) Mean Corpuscular Hemoglobin Concent 33 g/dL (31-37) Red Cell Distribution Width 13.5 % (11.5-14.5) Platelet Count 277 x10^3/uL (140-400) Neutrophils (%) (Auto) 86 % (31-73) Lymphocytes (%) (Auto) 7 % (24-48) Monocytes (%) (Auto) 7 % (0-9) Eosinophils (%) (Auto) 0 % (0-3) Basophils (%) (Auto) 0 % (0-3) Neutrophils # (Auto) 18.5 x10^3/uL (1.8-7.7) Lymphocytes # (Auto) 1.5 x10^3/uL (1.0-4.8) Monocytes # (Auto) 1.5 x10^3/uL (0.0-1.1) Eosinophils # (Auto) 0.0 x10^3/uL (0.0-0.7) Basophils # (Auto) 0.0 x10^3/uL (0.0-0.2) Heparin Anti-Xa Act, Unfractionated 0.21 IU/mL (0.30-0.70) Sodium Level 154 mmol/L (136-145) Potassium Level 2.8 mmol/L (3.5-5.1) Chloride Level 115 mmol/L (98-107) Carbon Dioxide Level 27 mmol/L (21-32) Anion Gap 12 (6-14) Blood Urea Nitrogen 22 mg/dL (8-26) Creatinine 0.8 mg/dL (0.7-1.3) Estimated GFR (Cockcroft-Gault) 97.6 Glucose Level 190 mg/dL (70-99) Calcium Level 9.0 mg/dL (8.5-10.1) O2 Saturation 97 % (92-99) Arterial Blood pH 7.52 (7.35-7.45) Arterial Blood pH (Temp corrected) 7.49 Arterial Blood pCO2 at Patient Temp 33 mmHg (35-46) Arterial Blood pCO2 (Temp correct) 36 mmHg Arterial Blood pO2 at Patient Temp 89 mmHg (65-108) Arterial Blood pO2 (Temp corrected) 101 mmHg Arterial Blood HCO3 26 mmol/L (21-28) Arterial Blood Base Excess 4 mmol/L (-3-3) FiO2 40 Test 01/16/20 14:00 Heparin Anti-Xa Act, Unfractionated 0.29 IU/mL (0.30-0.70) Brief Hospital Course Mr Rivas is a 64 y M w/ PMHx CAD (stent 14 yr ago), DM2, ex-smoker (30 pack year history) who presents via EMS on 01/12/2020 after being found down by his family. EMS found him in V-tach, initiated CPR and had ACLS protocol followed for about 20 minutes. In ED had approximately 20-25 minutes of CPR intermittently with shock and ACLS medications with rhythm throughout V-tach and V-fib. ROSC eventually achieved and he was initiated on IV amiodarone and 2 ampules of bicarbonate. He was requiring low-dose Levophed. Cardiology advised no immediate intervention indicated. Initial ABG pH of 7.03, pCO2 of 50 and a pO2 of 258 started on 60% and [address] head with concern for left parietal ischemia. Initial K 2.7. BUN 18, creatinine 1.4. AST and ALT elevated. WBC 7.1, hemoglobin 15.1, platelets 278,000. 01/13/2020 Overnight had some shaking episodes. This morning temperature 101.7 F, WBC 21.3, K3.7, CR 1.3, MG 1.5, ABG 7.45/30 on 60% FiO2. is currently bedside to witness physical examination with eyes deviated upward into the left no meaningful response to pain does have gag to suction. Does not follow any commands has been off sedation for 6 hours. I had a long conversation with who has conference called the sons to discuss goals of further care and they have made it very clear that his wish was not to remain in a persistent vegetative state if there is no meaningful prognosis for neurologic recovery. They are aware of the overall poor prognosis given his prolonged CPR course. 01/14/2020 Quite grim prognosis, discussed with at bedside, reassured her but also gave her the perspective of a meaningful recovery being unlikey in light of his current state. also reassured her that she had the conversation with the patient regarding wishes not to have intervention that would just prolong the inevitable. I asked her about the patients wishes and as stated on my colleagues note yesterday he had voiced not wanting to have supportive measures if he would be in a persistent vegetative state which seems to be the direction he is going. Will continue to follow. 01/15/2020 Patient with no neurological response as expected, reviewed results from current work-up consistent with anoxic brain injury. Encephalopathy seems to be getting worse. Discussed with at bedside reassurance has been provided 01/16/2020 Encephalopathy has ensued, now more accepting and most likely will withdraw care later today or tomorrow morning Patient received the visit from his family late in the afternoon. He was taken off the ventilator at 1800 and at 1817 according to nursing notes. I was not present at the time of passing Discharge Information Condition at Discharge: / Disposition/Orders: Scheduled Aspirin (Adult Low Dose Aspirin Ec) 81 Mg Tablet.dr, 81 MG PO DAILY, (Reported) Entered as Reported by: LOUIE TOMPKINS on 08/21/13 1237 Atorvastatin Calcium (Atorvastatin Calcium) 80 Mg Tablet, 80 MG PO DAILY, (Reported) Entered as Reported by: LOUIE TOMPKINS on 08/21/13 1237 Clopidogrel Bisulfate (Plavix) 75 Mg Tablet, 75 MG PO DAILY, (Reported) Entered as Reported by: LOUIE TOMPKINS on 08/21/13 1237 Fish Oil/Dha/Epa (Fish Oil 1,200 Mg Fish Oil) 1 Each Capsule, 2,400 MG PO DAILY, (Reported) Entered as Reported by: LOUIE TOMPKINS on 08/21/13 1237 Lisinopril (Lisinopril) 20 Mg Tablet, 20 MG PO DAILY, (Reported) Entered as Reported by: LOUIE TOMPKINS on 08/21/13 123 Metformin Hcl (Metformin Hcl) 1,000 Mg Tablet, 1,000 MG PO BIDWMEALS for , (Reported) Entered as Reported by: PEDRO PABLO GARZON on 01/13/20627 Last Taken: Unknown Dose on Unknown Date & Time Last Action: New Order on 01/13/20627 by PEDRO PABLO GARZON Metoprolol Tartrate (Metoprolol Tartrate) 25 Mg Tablet, 25 MG PO BID, (Reported) Entered as Reported by: LOUIE TOMPKINS on 08/21/13 1237 Mv-Mn/Iron/Fa/Herbal Cmplx#190 (Vitamin D3 Complete Caplet) 1 Each Tablet, 1 EACH PO BID for , (Reported) Entered as Reported by: PEDRO PABLO GARZON on 01/13/20627 Last Taken: UNKNOWN on Unknown Date & Time Last Action: New Order on 01/13/20627 by BERRY MARTIN MD January 17, 2020 17:42
[2020-08-14] MEDS ORDERED: SODIUM BICARB ADULT 8.4% 50 MEQ/50 ML DISP.SYRIN. ONE (08:00)
[2020-08-14] MEDS ORDERED: EPINEPHrine SYRINGE 1 MG/10 ML SYRINGE ONE (08:00)
[2020-08-14] MEDS ORDERED: AMIODARONE 150 MG/3 ML VIAL ONE (08:00)
[2020-08-14] MEDS ORDERED: DOPamine 400MG/250ML PREMIX 400 MG/250 ML BAG IV ONE (08:00)
== END 2020-01-16 19:11 | disposition expired | DRG 207 ==
LOC: ER 11:55 → CVICU 15:09
PROVIDERS: ADMIT Internal Medicine; ATTEND Internal Medicine
PROC: 5A1955Z Respiratory Ventilation, Greater than 96 Consecutive Hours (ICD-10-PCS; principal; 2020-01-12)
PROC: 0BH17EZ Insertion of Endotracheal Airway into Trachea, Via Natural or Artificial Opening (ICD-10-PCS; 2020-01-12)
PROC: 5A12012 Performance of Cardiac Output, Single, Manual (ICD-10-PCS; 2020-01-12)
PROC: 02H633Z Insertion of Infusion Device into Right Atrium, Percutaneous Approach (ICD-10-PCS; 2020-01-12)
DX: J96.01 Acute respiratory failure with hypoxia (principal); K72.00 Acute and subacute hepatic failure without coma; I21.4 Non-ST elevation (NSTEMI) myocardial infarction; G93.1 Anoxic brain damage, not elsewhere classified; I47.2 Ventricular tachycardia; J98.11 Atelectasis; R57.9 Shock, unspecified; J96.02 Acute respiratory failure with hypercapnia; M19.90 Unspecified osteoarthritis, unspecified site; D72.829 Elevated white blood cell count, unspecified; E11.9 Type 2 diabetes mellitus without complications; E78.5 Hyperlipidemia, unspecified; I10 Essential (primary) hypertension; I25.10 Atherosclerotic heart disease of native coronary artery without angina pectoris; I46.2 Cardiac arrest due to underlying cardiac condition; I49.01 Ventricular fibrillation; J44.9 Chronic obstructive pulmonary disease, unspecified; N40.0 Benign prostatic hyperplasia without lower urinary tract symptoms; Z59.2 Discord with neighbors, lodgers and landlord; Z79.02 Long term (current) use of antithrombotics/antiplatelets; Z79.82 Long term (current) use of aspirin; Z79.84 Long term (current) use of oral hypoglycemic drugs; Z79.899 Other long term (current) drug therapy; Z95.5 Presence of coronary angioplasty implant and graft; Z88.0 Allergy status to penicillin; Z90.49 Acquired absence of other specified parts of digestive tract; Z87.891 Personal history of nicotine dependence; Z87.11 Personal history of peptic ulcer disease; Z82.49 Family history of ischemic heart disease and other diseases of the circulatory system
CPT/HCPCS: 31500; 36415; 36600; 51702; 70450; 71045; 80048; 80053; 80061; 80307; 81001; 82550; 82805; 82962; 83735; 83880; 84100; 84132; 84443; 84478; 84484; 85007; 85025; 85520; 85610; 85730; 93005; 93306; 94002; 94003; 94760; 95816; 96365; 96368; 96375; 96376; G0480; J0282; J1644; J1815; J2060; J2250; J2270; J3010; J3475; J3480; J3490; J7030; J7050; J7060; 99291-25; G0378